=== PATIENT | female | born 1980 | race Caucasian/White ===

== ENCOUNTER → 2021-03-03 14:52 | Outpatient (BNVA) | payer OTHER, SELFPAY | PROVIDERS: Visit Provider Advanced Practice Midwife ==

== ENCOUNTER 2021-03-04 09:40 | Outpatient (REF) | payer OTHER, SELFPAY ==
[2021-03-04 11:06] LABS: MANUAL DIFF FLAG NO
[2021-03-04 11:18] LABS: Basophils Absolute Auto 0.2 X10*3/uL (0.0-0.2); Basophils Percent Auto 1.4 % (0-2); Eosinophils Percent Auto 18.9 % (0-4); Hematocrit 34.3 % (37-47); Hemoglobin 10.5 g/dl (12.0-16.0); Imm Gran Abs Auto 0.09 X10*3/uL (0.00-0.03); Imm Gran Pct Auto 0.9 % (0.0-0.4); Lymphocytes Absolute Auto 3.9 X10*3/uL (1.2-4.9); Lymphocytes Percent Auto 36.7 % (20-40); Mean Corpuscular HGB Conc 30.6 g/dl (31.0-35.0); Mean Corpuscular Hemoglobin 25.8 pg (27.0-33.0); Mean Corpuscular Volume 84.3 fL (80-98); Mean Platelet Volume 11.9 fL (9.4-12.3); Monocytes Absolute Auto 0.9 X10*3/uL (0.1-1.2); Monocytes Percent Auto 8.1 % (2-11); Neutrophils Absolute Auto 3.6 X10*3/uL (2.0-8.3); Platelet Count 276 X10*3/uL (160-400); Red Blood Count 4.07 X10*6/uL (4.20-5.50); Red Cell Distribution Width 16.6 % (11.0-16.0); White Blood Count 10.6 X10*3/uL (4.8-10.8)
[2021-03-04 11:51] LABS: TSH reflex Free T4 1.34 uIU/mL (0.32-4.0)
[2021-03-04 11:52] LABS: Alanine Aminotransferase 16 U/L (0-31); Albumin Level 4.5 g/dL (3.5-5.0); Alkaline Phosphatase 60 U/L (39-117); Anion Gap 15 (12-20); Aspartate Amino Transferase 24 U/L (5-31); Bilirubin Total < 0.2 mg/dL (0.0-1.0); Blood Urea Nitrogen 13 mg/dL (9-16); Calcium 9.3 mg/dL (8.4-10.2); Carbon Dioxide 27 mmol/L (22-29); Chloride 104 mmol/L (96-108); Cholesterol 209 mg/dL; Estimated Glomerular Filt Rate > 60; Glucose Fasting 93 mg/dL (60-99); HDL Cholesterol 59 mg/dL; LDL Cholesterol Calculated 99 mg/dl; Potassium 4.6 mmol/L (3.3-5.1); Sodium 141 mmol/L (135-145); Total Protein 7.7 g/dL (6.5-8.0); Triglycerides 258 mg/dL
== END 2021-03-04 09:41 | disposition home or self-care (01) ==
LOC: HO.WFDLDS 09:40
PROVIDERS: Visit Provider Family Medicine
DX: Z00.00 Encounter for general adult medical examination without abnormal findings (principal)
CPT/HCPCS: 36415; 80053; 80061; 84443; 85025

== ENCOUNTER → 2023-01-23 10:15 | Outpatient (BNVA) | payer OTHER, SELFPAY | PROVIDERS: PCP Family Medicine; Visit Provider Nurse Practitioner Psychiatric/Mental Health | DX: Z51.81 Encounter for therapeutic drug level monitoring (principal); F11.91 Opioid use, unspecified, in remission | CPT/HCPCS: 80305; 99202 ==

== ENCOUNTER → 2023-02-06 10:21 | Outpatient (BNVA) | payer OTHER, SELFPAY | PROVIDERS: PCP Family Medicine; Visit Provider Nurse Practitioner Psychiatric/Mental Health | DX: Z51.81 Encounter for therapeutic drug level monitoring (principal); F11.20 Opioid dependence, uncomplicated | CPT/HCPCS: 80305; 99212 ==

== ENCOUNTER → 2023-02-27 10:36 | Outpatient (BNVA) | payer OTHER, SELFPAY | PROVIDERS: PCP Family Medicine; Visit Provider Nurse Practitioner Psychiatric/Mental Health | DX: Z51.81 Encounter for therapeutic drug level monitoring (principal); F11.91 Opioid use, unspecified, in remission | CPT/HCPCS: 80305; 99212 ==

== ENCOUNTER → 2023-03-21 10:59 | Outpatient (BNVA) | payer OTHER, SELFPAY | PROVIDERS: PCP Family Medicine; Visit Provider Nurse Practitioner Psychiatric/Mental Health | DX: Z51.81 Encounter for therapeutic drug level monitoring (principal); F11.21 Opioid dependence, in remission | CPT/HCPCS: 80305; 99212 ==

== ENCOUNTER → 2023-04-18 11:00 | Outpatient (BNVA) | payer OTHER, SELFPAY | PROVIDERS: PCP Family Medicine; Visit Provider Nurse Practitioner Psychiatric/Mental Health | DX: Z51.81 Encounter for therapeutic drug level monitoring (principal); F11.20 Opioid dependence, uncomplicated | CPT/HCPCS: 80305; 99212 ==

== ENCOUNTER → 2023-05-16 11:20 | Outpatient (BNVA) | payer OTHER, SELFPAY | PROVIDERS: PCP Family Medicine; Visit Provider Nurse Practitioner Psychiatric/Mental Health | DX: F11.20 Opioid dependence, uncomplicated (principal) | CPT/HCPCS: 80305; 99212 ==

== ENCOUNTER 2023-07-10 11:19 | Outpatient (AMB) | payer OTHER, SELFPAY ==
--- NOTE | 2023-07-10 11:20 | MHC.OFFVIS ---
Intake Vital Signs 07/10/23 11:29 BP 132/88 Blood Pressure Location Lt radial Position Sitting Pulse 70 Pulse Source Pulse Oximeter Pulse Oximetry (%) 96 Oxygen Delivery Method Room Air Intake Visit Reasons: MAT Visit Intake Note: the patient presents for a mat visit Material Mover Required: No Allergies No Known Allergies Allergy (Verified 07/10/23 11:22) Do you need a note to return to daycare/school/sports/work: No HPI MAT Visit HPI Details Patient presents for follow up Currently prescribed Suboxone 8mg daily Got over the weekend Working PT at [facility] called patient to set up intake --encouraged patient to call them back [facility] Medical History Asthma Bronchitis HTN (hypertension) Obesity (BMI 30.0-34.9) Surgical History History of section History of hernia repair Family History Father No problems noted. Mother Asthma Brother No problems noted. Brother No problems noted. Sister No problems noted. Sister Breast cancer Daughter No problems noted. Social History Housing: Condominium Alcohol intake: never Patient Tobacco Use Status: Current everyday Tobacco user Cigarettes Per Day: 12 Years Smoked: 6 service: No Current occupational status: employed Current occupational exposures/hazards: No Cognitive needs: No Hearing needs: No Vision needs: No Review of Systems Const Reports as per HPI and Reports no additional complaints Physical Exam Vital Signs: Last Vital Signs Pulse 70 07/10/23 11:29 BP 132/88 07/10/23 11:29 Pulse Ox 96 07/10/23 11:29 Oxygen Delivery Method Room Air 07/10/23 11:29 Const General: cooperative and healthy appearing Psych Appearance: well kempt Mental Status: mental status grossly normal Speech and movement: Clear speech present Affect: normal affect Attitude: cooperative Thought process: Normal thought process present Thought content: Normal thought content present Insight: Good insight present (Psych) Judgement: Good judgement present (Psych) Results AMB 14 Panel Urine Drug Screen Urine Marijuana (THC) Positive Last Edit by Latasha Freeman CMA on 07/10/23 11:30 Urine Cocaine Negative Last Edit by Latasha Freeman CMA on 07/10/23 11:30 Urine Morphine Negative Last Edit by Latasha Freeman CMA on 07/10/23 11:30 Urine Methamphetamine Negative Last Edit by Latasha Freeman CMA on 07/10/23 11:30 Urine Amphetamine Negative Last Edit by Latasha Freeman CMA on 07/10/23 11:30 Urine Benzodiazepine Negative Last Edit by Latasha Freeman CMA on 07/10/23 11:30 Urine Barbiturates Negative Last Edit by Latasha Freeman CMA on 07/10/23 11:30 Urine Methadone Negative Last Edit by Latasha Freeman CMA on 07/10/23 11:30 Urine Buprenorphine Positive Last Edit by Latasha Freeman CMA on 07/10/23 11:30 Urine Tricyclic Antidepressant Negative Last Edit by Latasha Freeman CMA on 07/10/23 11:30 Urine MDMA Negative Last Edit by Latasha Freeman CMA on 07/10/23 11:30 Urine Oxycodone Negative Last Edit by Latasha Freeman CMA on 07/10/23 11:30 Urine Phencyclidine Negative Last Edit by Latasha Freeman CMA on 07/10/23 11:30 Urine Propoxyphene Negative Last Edit by Latasha Freeman CMA on 07/10/23 11:30 Results Reviewed Results Reviewed: Laboratory Last Values POC Urine Buprenorphine Positive 07/10/23 11:22 POC Urine Morphine Negative 07/10/23 11:22 POC Urine Oxycodone Negative 07/10/23 11:22 POC Urine Methadone Negative 07/10/23 11:22 POC Urine Propoxyphene Negative 07/10/23 11:22 POC Urine Barbiturates Negative 07/10/23 11:22 POC U Tricyclic Antidpr Negative 07/10/23 11:22 POC Urine PCP Negative 07/10/23 11:22 POC Ur Amphetamines Negative 07/10/23 11:22 POC Ur Methamphetamine Negative 07/10/23 11:22 POC Urine MDMA Negative 07/10/23 11:22 POC Ur Benzodiazepine Negative 07/10/23 11:22 POC Urine Cocaine Negative 07/10/23 11:22 POC Ur Marijuana (THC) Positive 07/10/23 11:22 Assessment & Plan Assessment & Plan (1) Opioid use disorder in remission: Code(s): F11.91 - Opioid use, unspecified, in remission Plan: continue suboxone at current dose follow up 6 weeks patient to follow up with [facility] Orders: Orders AMB 14 Panel Urine Drug Screen Today Z51.81 - Encounter for therapeutic drug level monitoring Medications: Refilled buprenorphine-naloxone 8-2 mg (Suboxone) 1 film sublingual DAILY 22 ea 1RF Coding Level of Care Code Est Pt Level 3 (14684) Diagnoses Opioid use disorder in remission F11.91
[2023-07-10 11:29] VITALS: BP 132/88; PULSE 70; O2SAT 96
== END 2023-07-10 11:47 | disposition home or self-care (01) ==
LOC: HO.HCC 11:19
PROVIDERS: PCP Family Medicine; Visit Provider Nurse Practitioner Psychiatric/Mental Health
DX: F11.91 Opioid use, unspecified, in remission (principal); Z51.81 Encounter for therapeutic drug level monitoring
CPT/HCPCS: 99213

== ENCOUNTER → 2023-07-10 11:19 | Outpatient (BNVA) | payer OTHER, SELFPAY | PROVIDERS: PCP Family Medicine; Visit Provider Nurse Practitioner Psychiatric/Mental Health | DX: F11.21 Opioid dependence, in remission (principal); F12.90 Cannabis use, unspecified, uncomplicated; Z51.81 Encounter for therapeutic drug level monitoring; Z79.899 Other long term (current) drug therapy; Z72.0 Tobacco use | CPT/HCPCS: 80305; 99212 ==

== ENCOUNTER 2023-07-13 09:50 | Outpatient (AMB) | payer OTHER, SELFPAY ==
--- NOTE | 2023-07-13 10:01 | A.OFFPC_ITS ---
Vital Signs 07/13/23 10:04 Weight 218 lb 4 oz BP 126/74 Blood Pressure Location Lt brachial Position Sitting Pulse 59 Pulse Source Pulse Oximeter Pulse Oximetry (%) 99 Oxygen Delivery Method Room Air Intake Visit Reasons: follow up anxiety/ medication refill Intake Note: Patient is here to follow up on anxiety, and inhaler refill. Allergies No Known Allergies Allergy (Verified 07/13/23 10:07) Tobacco use date assessed: 07/13/23 Dental Screening Dental Screen Date: 07/13/23 Did you have a dental visit in the last 12 months?: Yes Did you have a dental problem in the last 6 months where you did not have access to dental care?: No Was dental information given to patient?: Patient declined HPI follow up anxiety/ medication refill HPI Details 42 y/o female presents to f/u anxiety. She continues to see Glenys Nash for opioid use disorder in remission. She continues her Suboxone. She is on sertraline 100mg daily. Anxiety/depression scores significantly improved. She has a therapist in the works with [facility]. HPI Comments History of Present Illness Details Documentation assistance for Ashu Whitt MD, was provided by Richy Ya, Offset Duplicating Machine Operator on 07/13/2023 10:19 AM EST. I, Dr. Whitt, have read, observed, and verified documentation. [facility] Medical History (Reviewed 07/13/23 @ 10:09 by Anahi Steele [facility]) Asthma Bronchitis HTN (hypertension) Obesity (BMI 30.0-34.9) Surgical History History of section History of hernia repair Family History (Reviewed 07/13/23 @ 10:09 by Anahi Steele [facility]) Father No problems noted. Mother Asthma Brother No problems noted. Brother No problems noted. Sister No problems noted. Sister Breast cancer Daughter No problems noted. Social History (Reviewed 07/13/23 @ 10:09 by Anahi Steele [facility]) Housing: Condominium Alcohol intake: never Patient Tobacco Use Status: Current everyday Tobacco user Cigarettes Per Day: 12 Years Smoked: 6 e-Cigarette/Vaping Use: Never Used service: No Current occupational status: employed Current occupational exposures/hazards: No Cognitive needs: No Hearing needs: No Vision needs: No Questionnaire PHQ-9 Over the last 2 weeks, how often have you been bothered by any of the following problems? 1. Little interest or pleasure in doing things: not at all 2. Feeling down, depressed, or hopeless: not at all 3. Trouble falling or staying asleep, or sleeping too much: not at all 4. Feeling tired or having little energy: not at all 5. Poor appetite or overeating: not at all 6. Feeling bad about yourself - or that you are a failure or have let yourself or your family down: not at all 7. Trouble concentrating on things, such as reading the newspaper or watching television: not at all 8. Moving or speaking so slowly that other people could have noticed. Or the opposite - being so fidgety or restless that you have been moving around a lot more than usual: not at all 9. Thoughts that you would be better off or of hurting yourself in some way: not at all Total score: 0 Depression Screening Interpretation: Negative [id number] - PHQ-9 Billing: Yes Source: Developed by Drs. Rod Mayer, Alona Carmen, Mushtaq Pino and colleagues, with an educational jose from [employer]. Thrive Questionnaire Date Thrive assessed: 09/01/21 RONNIE-7 AMB Questionnaire RONNIE-7 Date RONNIE - 7 assessed: 07/13/23 Feeling nervous, anxious, or on edge: 0 = Not at all Not being able to stop or control worryin = Not at all Worrying too much about different things: 0 = Not at all Trouble relaxin = Not at all Being so restless that it is hard to sit still: 0 = Not at all Becoming easily annoyed or irritable: 0 = Not at all Feeling afraid as if something awful might happen: 0 = Not at all Total RONNIE-7 score (0-4 normal; 5-9 mild; 10-14 moderate; 15-21 severe): 0 Source: Developed by Drs. Rod Mayer, Alona Carmen, Mushtaq Pino and colleagues, with an educational jose from [employer]. RONNIE-7 Assessment Billing RONNIE-7 Assessment Tool: RONNIE-7 Assessment [id number] Review of Systems Const Denies chills, Denies fatigue, Denies fever(s), Denies headache(s) and Denies weakness ENT Denies dizziness and Denies headache(s) Card Denies chest pain, Denies lightheadedness, Denies dyspnea and Denies other (Palpitations) Resp Denies cough, Denies dyspnea, Denies wheezing and Denies other ( shortness of breath) Musc Denies numbness and Denies tingling Neuro Denies dizziness, Denies headache(s), Denies numbness, Denies tingling, Denies paresthesias and Denies weakness Psych Denies anxiety and Denies depression Endo Denies fatigue Aller/Immun Denies wheezing Physical exam (Primary Care) Vital Signs: Last Vital Signs Pulse 59 07/13/23 10:04 BP 126/74 07/13/23 10:04 Pulse Ox 99 07/13/23 10:04 Oxygen Delivery Method Room Air 07/13/23 10:04 Tobacco/Smoking Status: Tobacco use Status Tobacco use date assessed 07/13/23 07/13/23 10:14 Patient Tobacco Use Status Current everyday Tobacco 07/13/23 10:02 e-Cigarette/Vaping Use Never Used 07/13/23 10:14 PHQ-9: PHQ-9 Score PHQ-9: Total score 0 07/13/23 10:16 Depression Screening Interpretation: Negative Thrive Assessment: Date of Thrive Assessment Date Thrive assessed 09/01/21 07/13/23 10:02 Const General: no acute distress and well developed Nutritional Appearance: well nourished Orientation/consciousness: patient oriented x3 HENMT Head: Yes normocephalic and Yes atraumatic Eyes General: appearance normal, both eyes and all related structures Pupils: Equal, round and reactive pupils present EOM: EOMs intact bilaterally Resp Effort & Inspection: normal respiratory effort Auscultation: clear to auscultation bilaterally Cardio Rate: regular rate Rhythm: regular rhythm Heart sounds: S1 normal heart sound present, S2 normal heart sound present, no gallops, no murmurs and no rubs Neuro General: patient oriented x3 and gait normal Cranial nerves: Yes Equal, round and reactive pupils present Psych Affect: normal affect Assessment and Plan Assessment & Plan (1) Anxiety and depression: Code(s): F41.9 - Anxiety disorder, unspecified; F32.9 - Major depressive disorder, single episode, unspecified Plan: PHQ-9 and ronnie 7 showed no significant depression or anxiety at present on sertraline Patient says she feels well and stable on sertraline in 100 mg daily Continue current medication She has been working on getting a therapist but has not done so yet. I encouraged her to continue to pursue therapy (2) Asthma: Code(s): J45.909 - Unspecified asthma, uncomplicated Plan: She feels a little tight due to being out of her rescue inhaler. Lungs sound clear however with good air movement. Will send script for inhaler If not improving when she has the inhaler, she can call for another appointment Orders: Orders Comprehensive [facility]. Panel Fast Today Z00.00 - Encounter for general adult medical examination without abnormal findings Lipid Panel Today Z00.00 - Encounter for general adult medical examination without abnormal findings Microalbumin, Random (w Creat) Today I10 - Essential (primary) hypertension TSH reflex Free T4 Today Z00.00 - Encounter for general adult medical examination without abnormal findings UA and rflx microscopic Today Z00.00 - Encounter for general adult medical examination without abnormal findings Medications: New albuterol sulfate 90 mcg/actuation (Ventolin HFA) 2 puffs inhalation Q4-6H PRN 8.5 grams 3RF shortness of breath or wheezing 30 days Discontinued albuterol sulfate 90 mcg/actuation (ProAir HFA) Discontinued Reason: Insurance Denied 2 puffs inhalation Q4-6H PRN 8.5 grams 2RF shortness of breath or wheezing 30 days Coding Level of Care Code Est Pt Level 3 (18943) Diagnoses Anxiety and depression F41.9; F32.9 Asthma J45.909 Additional Codes RONNIE-7 Assessment Billing - RONNIE-7 Assessment Tool: RONNIE-7 Assessment [id number] ([id number])
[2023-07-13 10:04] VITALS: BP 126/74; PULSE 59; O2SAT 99
== END 2023-07-13 10:30 | disposition home or self-care (01) ==
PROVIDERS: PCP Family Medicine; Visit Provider Family Medicine
DX: F41.9 Anxiety disorder, unspecified (principal); F32.9 Major depressive disorder, single episode, unspecified; J45.909 Unspecified asthma, uncomplicated
CPT/HCPCS: 99213

== ENCOUNTER 2023-07-13 10:31 | Outpatient (REF) | payer OTHER, SELFPAY ==
[2023-07-13 14:32] LABS: Appearance Urine Clear; Color Urine Yellow; Glucose Urine UA Negative (Negative); Leukocyte Esterase Urine Negative (Negative); Nitrite Urine Negative (Negative); UMIC TRIGGER UA YES; Urine Blood Trace (Negative); Urine Ketones Negative (Negative); Urine Protein Negative (Neg-Trace)
[2023-07-13 14:43] LABS: Alanine Aminotransferase 16 U/L (0-31); Albumin Level 4.4 g/dL (3.5-5.0); Alkaline Phosphatase 51 U/L (39-117); Anion Gap 10 (12-20); Aspartate Amino Transferase 20 U/L (5-31); Bilirubin Total 0.2 mg/dL (0.0-1.0); Blood Urea Nitrogen 12 mg/dL (9-16); Calcium 9.5 mg/dL (8.4-10.2); Carbon Dioxide 25 mmol/L (22-29); Chloride 109 mmol/L (96-108); Cholesterol 210 mg/dL; Estimated Glomerular Filt Rate > 60; Glucose Fasting 97 mg/dL (60-99); HDL Cholesterol 43 mg/dL; LDL Cholesterol Calculated 122 mg/dl; Potassium 4.4 mmol/L (3.3-5.1); Sodium 140 mmol/L (135-145); Total Protein 7.6 g/dL (6.5-8.0); Triglycerides 226 mg/dL
[2023-07-13 14:58] LABS: TSH reflex Free T4 1.26 uIU/mL (0.32-4.0)
[2023-07-13 15:00] LABS: Creatinine Urine 30.09 mg/dL; Microalbumin Urine < 5.0 mg/L
[2023-07-13 15:17] LABS: Bacteria Urine None Seen (None Seen); Hyaline Casts Urine 0-2 /LPF (0-2); RBC Urine 0-2 /HPF (0-2); Squamous Epithelial Cell Urine 0-2 /HPF (0-2); WBC Urine 0-5 /HPF (0-5)
== END 2023-07-13 10:32 | disposition home or self-care (01) ==
LOC: HO.WFDLDS 10:31
PROVIDERS: Visit Provider Family Medicine
DX: Z00.00 Encounter for general adult medical examination without abnormal findings (principal); I10 Essential (primary) hypertension
CPT/HCPCS: 36415; 80053; 80061; 81001; 82043; 84443

== ENCOUNTER 2023-08-28 11:30 | Outpatient (AMB) | payer OTHER, SELFPAY ==
[2023-08-28 11:36] VITALS: BP 118/84; PULSE 74; O2SAT 98
--- NOTE | 2023-08-28 11:36 | A.OFFVIS_ITS ---
Intake Vital Signs 08/28/23 11:36 BP 118/84 Blood Pressure Location Lt radial Position Sitting Pulse 74 Pulse Source Pulse Oximeter Pulse Oximetry (%) 98 Oxygen Delivery Method Room Air Intake Visit Reasons: mat visit Intake Note: the patient presents for a mat visit [place] Alarm Inspector Required: No Allergies No Known Allergies Allergy (Verified 08/28/23 11:37) Do you need a note to return to daycare/school/sports/work: No HPI mat visit HPI Details Patient presents for follow up Doing well with recovery continues to work and spend time with family- no questions or concerns at this time [facility] Medical History Asthma Bronchitis HTN (hypertension) Obesity (BMI 30.0-34.9) Surgical History History of section History of hernia repair Family History Father No problems noted. Mother Asthma Brother No problems noted. Brother No problems noted. Sister No problems noted. Sister Breast cancer Daughter No problems noted. Social History Housing: Condominium Alcohol intake: never Patient Tobacco Use Status: Current everyday Tobacco user Cigarettes Per Day: 12 Years Smoked: 6 e-Cigarette/Vaping Use: Never Used service: No Current occupational status: employed Current occupational exposures/hazards: No Cognitive needs: No Hearing needs: No Vision needs: No Review of Systems Const Reports as per HPI and Reports no additional complaints Physical Exam Vital Signs: Last Vital Signs Pulse 74 08/28/23 11:36 BP 118/84 08/28/23 11:36 Pulse Ox 98 08/28/23 11:36 Oxygen Delivery Method Room Air 08/28/23 11:36 Const General: cooperative and healthy appearing Psych Appearance: well kempt Mental Status: mental status grossly normal Speech and movement: Clear speech present Affect: normal affect Attitude: cooperative Thought process: Normal thought process present Thought content: Normal thought content present Insight: Good insight present (Psych) Judgement: Good judgement present (Psych) Assessment & Plan Assessment & Plan (1) Opioid use disorder in remission: Code(s): F11.91 - Opioid use, unspecified, in remission Plan: * continue suboxone at current dose * follow up 6 weeks Medications: Refilled buprenorphine-naloxone 8-2 mg (Suboxone) 1 film sublingual DAILY 22 ea 1RF Coding Level of Care Code Est Pt Level 3 (80167) Diagnoses Opioid use disorder in remission F11.91
== END 2023-08-28 11:59 | disposition home or self-care (01) ==
LOC: HO.HCC 11:30
PROVIDERS: PCP Family Medicine; Visit Provider Nurse Practitioner Psychiatric/Mental Health
DX: F11.91 Opioid use, unspecified, in remission (principal)
CPT/HCPCS: 99213

== ENCOUNTER → 2023-08-28 11:30 | Outpatient (BNVA) | payer OTHER, SELFPAY | PROVIDERS: PCP Family Medicine; Visit Provider Nurse Practitioner Psychiatric/Mental Health | DX: F11.91 Opioid use, unspecified, in remission (principal) | CPT/HCPCS: 99212 ==

== ENCOUNTER 2023-10-03 11:11 | Outpatient (AMB) | payer OTHER, SELFPAY ==
[2023-10-03 11:15] VITALS: BP 118/64; PULSE 68; O2SAT 98
--- NOTE | 2023-10-03 11:15 | MHC.PC.OV ---
Vital Signs 10/03/23 11:15 Weight 226 lb 8 oz BP 118/64 Blood Pressure Location Lt brachial Position Sitting Pulse 68 Pulse Source Pulse Oximeter Pulse Oximetry (%) 98 Oxygen Delivery Method Room Air Intake Visit Reasons: Extended exam with f/u labs and health maintenance Intake Note: Patient is here for extended exam and follow up on labs and health maintenance, and would like to talk about SCRAP SEPARATOR referral, states she had tried to get through the office. Allergies No Known Allergies Allergy (Verified 10/03/23 11:20) Tobacco use date assessed: 10/03/23 HPI Extended exam with f/u labs and health maintenance HPI Details 43 y/o female presents for an extended exam with f/u labs and health maintenance. Labs were drawn 07/13/23. Reviewed labs with pt. Triglycerides 226. TC 210. LDL 122. HDL 43. Rest of her labs look okay. Pt reports irregular periods and states had missed her periods x2 months. [facility] Medical History (Updated 10/03/23 @ 12:10 by Richy Ya) Abnormal menstrual periods Obesity (BMI 30.0-34.9) HTN (hypertension) Asthma Bronchitis Surgical History (Reviewed 10/03/23 @ 11:21 by Anahi Steele [facility]) History of section History of hernia repair Family History (Reviewed 10/03/23 @ 11:21 by Anahi Steele [facility]) Father No problems noted. Mother Asthma Brother No problems noted. Brother No problems noted. Sister No problems noted. Sister Breast cancer Daughter No problems noted. Social History (Reviewed 10/03/23 @ 11:21 by Anahi Steele [facility]) Housing: Condominium Alcohol intake: never Patient Tobacco Use Status: Current everyday Tobacco user Cigarettes Per Day: 12 Years Smoked: 6 e-Cigarette/Vaping Use: Never Used service: No Current occupational status: employed Current occupational exposures/hazards: No Cognitive needs: No Hearing needs: No Vision needs: No Questionnaire Thrive Questionnaire Date Thrive assessed: 09/01/21 RONNIE-7 AMB Questionnaire RONNIE-7 Date RONNIE - 7 assessed: 07/13/23 Source: Developed by Drs. Rod Mayer, Alona Carmen, Mushtaq Pino and colleagues, with an educational jose from [employer]. Review of Systems Const Denies chills, Denies fatigue, Denies fever(s), Denies headache(s) and Denies weakness Eyes Denies change in vision ENT Denies dizziness, Denies headache(s), Denies hearing loss, Denies nasal congestion, Denies sinus pain, Denies sinus pressure and Denies sore throat Card Denies chest pain, Denies lightheadedness, Denies dyspnea and Denies other (palpitations) Resp Denies cough, Denies dyspnea and Denies wheezing GI Reports abdominal pain (Low abd. pelvic pain, L of midline), Denies melena, Denies hematochezia, Denies change in bowel habits, Denies dyspepsia and Denies nausea Denies hematuria and Denies dysuria Musc Denies abnormal gait, Denies myalgias, Denies arthralgias, Denies numbness and Denies tingling Skin/Breast Denies rash, Denies unusual bruising and Denies wounds Neuro Denies abnormal gait, Denies dizziness, Denies headache(s), Denies memory loss, Denies numbness, Denies Sensory deficit (Neuro), Denies tingling and Denies weakness Psych Denies anxiety, Denies depression and Denies memory loss Endo Denies cold intolerance, Denies fatigue, Denies heat intolerance, Denies polydipsia and Denies polyuria Hollis/Lymph Denies easy bleeding and Denies easy bruising Aller/Immun Denies wheezing Physical exam (Primary Care) Vital Signs: Last Vital Signs Pulse 68 10/03/23 11:15 BP 118/64 10/03/23 11:15 Pulse Ox 98 10/03/23 11:15 Oxygen Delivery Method Room Air 10/03/23 11:15 Tobacco/Smoking Status: Tobacco use Status Tobacco use date assessed 10/03/23 10/03/23 11:23 Patient Tobacco Use Status Current everyday Tobacco 10/03/23 11:15 e-Cigarette/Vaping Use Never Used 10/03/23 11:15 Thrive Assessment: Date of Thrive Assessment Date Thrive assessed 09/01/21 10/03/23 11:15 Const General: no acute distress, well developed, alert and awake Nutritional Appearance: well nourished Orientation/consciousness: patient oriented x3 HENMT Head: Yes normocephalic and Yes atraumatic Ears: hearing grossly normal bilaterally and TM's normal bilaterally General nose exam: Normal external nose present and Normal nares present Mouth: Normal oral and palatal mucosa present and moist mucous membranes Teeth and gingiva: dentition normal Throat: Yes posterior oropharynx normal Eyes General: appearance normal, both eyes and all related structures Pupils: Equal, round and reactive pupils present and Pupil accommodation reflex normal EOM: EOMs intact bilaterally Neck Neck: Yes normal visual inspection, Yes no lymphadenopathy and Yes trachea midline Thyroid: Thyroid normal Carotids: no bruits Lymphatic: no lymphadenopathy noted Chest Chest palpation & inspection: normal inspection of the chest Resp Other: Wheeze and coarse breath sounds Effort & Inspection: normal respiratory effort Auscultation: clear to auscultation bilaterally Cardio Rate: regular rate Rhythm: regular rhythm Heart sounds: S1 normal heart sound present, S2 normal heart sound present, no gallops, no murmurs and no rubs Bruits: no abdominal aortic bruits and no carotid bruits GI Palpation (GI): No Abdominal aortic bruit present, Soft to palpation, nontender, No hepatosplenomegaly present and No Rebound tenderness present Auscultation: normal bowel sounds General: Yes no CVA tenderness Back/Spine/Pelvis Back: no CVA tenderness Cervical Spine: cervical ROM normal and No Cervical spine tenderness Thoracic/Lumbar Spine: thoraco-lumbar ROM normal, No pain with thoraco-lumbar ROM, No thoracic spinal tenderness and No lumbar spinal tenderness Skin Lesions: no lesions Rashes: no rashes Trauma: no lacerations or abrasions Wounds: no wounds Nails: normal Neuro General: patient oriented x3 Cranial nerves: Yes Equal, round and reactive pupils present Cognition (Neuro): normal cognition Gait exam (Neuro): Normal gait present Motor exam (neuro): 5/5 motor strength present throughout Sensory Exam: No Sensory deficit (Neuro) Deep tendon reflexes (DTR's): Right patellar reflex intensity grade: 2+ and Left patellar reflex intensity grade: 2+ Extrem General: Yes normal to inspection and No edema Psych Appearance: grossly normal Affect: normal affect Attitude: cooperative Thought process: Normal thought process present Assessment and Plan Assessment & Plan (1) Hypertriglyceridemia: Code(s): E78.1 - Pure hyperglyceridemia Plan: Work?on?diet?and?weight?loss Decrease?sugars?in?diet (2) Irregular periods: Code(s): N92.6 - Irregular menstruation, unspecified Plan: Irregular?periods.??Patient?denies?any?chance?she?could?be?. Abdominal?pelvic?pain Check?ultrasound Referred?to?nurse gynecology (3) Asthma: Code(s): J45.909 - Unspecified asthma, uncomplicated Plan: Worsening?asthma?symptoms. Continue?albuterol?as?needed Adding?Flovent Advised?smoking?cessation (4) Smoker: Code(s): F17.200 - Nicotine dependence, unspecified, uncomplicated Plan: Continue?to?work?at?decreasing?smoking Smoking?less?than?half?a?pack?per?day Try?Nicorette?lozenges (5) Breast cancer screening by mammogram: Code(s): Z12.31 - Encounter for screening mammogram for malignant neoplasm of breast Plan: Check?mammogram (6) Abdominal pain: Code(s): R10.9 - Unspecified abdominal pain Plan: Check?ultrasound (7) Screening for cervical cancer: Code(s): Z12.4 - Encounter for screening for malignant neoplasm of cervix Plan: Referred?to?nurse gynecology (8) Adult general medical examination: Code(s): Z00.00 - Encounter for general adult medical examination without abnormal findings Plan: 43-year-old?female?presents?for?an?extended?exam Orders: Orders US pelvic complete Today N92.6 - Irregular menstruation, unspecified, R10.9 - Unspecified abdominal pain MM tomosynthesis screening BI Today Z12.31 - Encounter for screening mammogram for malignant neoplasm of breast Referrals SCRAP SEPARATOR Referral N92.6 - Irregular menstruation, unspecified, R10.9 - Unspecified abdominal pain, Z12.4 - Encounter for screening for malignant neoplasm of cervix Medications: New nicotine (polacrilex) (Nicorette) 2 mg buccal Q8H PRN 81 ea 2RF nicotine cravings 28 days fluticasone propionate 110 mcg/actuation (Flovent HFA) 1 puff inhalation Q12H 12 grams 3RF 30 days Refilled albuterol sulfate 90 mcg/actuation (Ventolin HFA) 2 puffs inhalation Q4-6H PRN 8.5 grams 3RF shortness of breath or wheezing 30 days Coding Level of Care Code Est Pt Level 4 (32873) Diagnoses Hypertriglyceridemia E78.1 Irregular periods N92.6 Asthma J45.909 Smoker F17.200 Breast cancer screening by mammogram Z12.31 Abdominal pain R10.9 Screening for cervical cancer Z12.4 Adult general medical examination Z00.00
== END 2023-10-03 12:16 | disposition home or self-care (01) ==
PROVIDERS: PCP Family Medicine; Visit Provider Family Medicine
DX: E78.1 Pure hyperglyceridemia (principal); N92.6 Irregular menstruation, unspecified; J45.909 Unspecified asthma, uncomplicated; F17.200 Nicotine dependence, unspecified, uncomplicated; Z12.31 Encounter for screening mammogram for malignant neoplasm of breast; R10.9 Unspecified abdominal pain; Z12.4 Encounter for screening for malignant neoplasm of cervix; Z00.00 Encounter for general adult medical examination without abnormal findings
CPT/HCPCS: 99214

== ENCOUNTER 2023-10-09 11:17 | Outpatient (AMB) | payer OTHER, SELFPAY ==
--- NOTE | 2023-10-09 11:21 | A.OFFVIS_ITS ---
Intake Vital Signs 10/09/23 11:23 BP 128/70 Blood Pressure Location Lt radial Position Sitting Pulse 88 Pulse Source Pulse Oximeter Pulse Oximetry (%) 98 Oxygen Delivery Method Room Air Intake Visit Reasons: mat visit Intake Note: the patient presents for a mat visit Alley Tender Required: No Allergies No Known Allergies Allergy (Verified 10/09/23 11:25) Do you need a note to return to daycare/school/sports/work: No HPI mat visit HPI Details Patient presents for follow up Recent physical with Peri U/S for abdominal pain Mammogram scheduled Doing well with current dose of suboxone Patient sharing some increasing sadness as the one year anniversary of her mothers is coming up in October. [facility] Medical History (Updated 10/03/23 @ 12:10 by Richy Ya) Abnormal menstrual periods Obesity (BMI 30.0-34.9) HTN (hypertension) Asthma Bronchitis Surgical History History of section History of hernia repair Family History Father No problems noted. Mother Asthma Brother No problems noted. Brother No problems noted. Sister No problems noted. Sister Breast cancer Daughter No problems noted. Social History Housing: Condominium Alcohol intake: never Patient Tobacco Use Status: Current everyday Tobacco user Cigarettes Per Day: 12 Years Smoked: 6 e-Cigarette/Vaping Use: Never Used service: No Current occupational status: employed Current occupational exposures/hazards: No Cognitive needs: No Hearing needs: No Vision needs: No Review of Systems Const Reports as per HPI Physical Exam Vital Signs: Last Vital Signs Pulse 88 10/09/23 11:23 BP 128/70 10/09/23 11:23 Pulse Ox 98 10/09/23 11:23 Oxygen Delivery Method Room Air 10/09/23 11:23 Const General: cooperative and healthy appearing Psych Appearance: well kempt Mental Status: mental status grossly normal Speech and movement: Clear speech present Affect: normal affect Attitude: cooperative Thought process: Normal thought process present Thought content: Normal thought content present Insight: Good insight present (Psych) Judgement: Good judgement present (Psych) Assessment & Plan Assessment & Plan (1) Opioid use disorder in remission: Code(s): F11.91 - Opioid use, unspecified, in remission Plan: * continue suboxone at current dose * followup 6 weeks * discussed grief resources Medications: Refilled buprenorphine-naloxone 8-2 mg (Suboxone) 1 film sublingual DAILY 22 ea 1RF Coding Level of Care Code Est Pt Level 3 (55448) Diagnoses Opioid use disorder in remission F11.91
[2023-10-09 11:23] VITALS: BP 128/70; PULSE 88; O2SAT 98
== END 2023-10-09 12:00 | disposition home or self-care (01) ==
PROVIDERS: PCP Family Medicine; Visit Provider Nurse Practitioner Psychiatric/Mental Health
DX: F11.91 Opioid use, unspecified, in remission (principal)
CPT/HCPCS: 99213

== ENCOUNTER → 2023-10-09 11:17 | Outpatient (BNVA) | payer OTHER, SELFPAY | PROVIDERS: PCP Family Medicine; Visit Provider Nurse Practitioner Psychiatric/Mental Health | DX: F11.91 Opioid use, unspecified, in remission (principal) | CPT/HCPCS: 99212 ==

== ENCOUNTER 2023-11-14 11:54 | Outpatient (AMB) | payer OTHER, SELFPAY ==
[2023-11-14 11:58] VITALS: BP 122/78; PULSE 65; O2SAT 100; BMI 35.8
--- NOTE | 2023-11-14 11:58 | A.OFFPC_ITS ---
Vital Signs 11/14/23 11:58 Height 5 ft 7 in Weight 228 lb 6 oz BMI 35.8 BP 122/78 Blood Pressure Location Lt brachial Position Sitting Pulse 65 Pulse Source Pulse Oximeter Pulse Oximetry (%) 100 Oxygen Delivery Method Room Air Intake Visit Reasons: f/u abd. pain and ultrasound Intake Note: Patient is here for follow up on abdominal pain and due for ultrasound on the . Allergies No Known Allergies Allergy (Verified 11/14/23 12:01) Tobacco use date assessed: 10/03/23 HPI f/u abd. pain and ultrasound HPI Details 43 y/o female presents to f/u abd. pain/ pelvic pain and ultrasound. Ultrasound ordered. She reports ultrasound scheduled. Urinalysis/urine dip today was fine. [facility] Medical History Abnormal menstrual periods Obesity (BMI 30.0-34.9) HTN (hypertension) Asthma Bronchitis Surgical History History of section History of hernia repair Family History Father No problems noted. Mother Asthma Brother No problems noted. Brother No problems noted. Sister No problems noted. Sister Breast cancer Daughter No problems noted. Social History Housing: Condominium Alcohol intake: never Patient Tobacco Use Status: Current everyday Tobacco user Cigarettes Per Day: 12 Years Smoked: 6 e-Cigarette/Vaping Use: Never Used service: No Current occupational status: employed Current occupational exposures/hazards: No Cognitive needs: No Hearing needs: No Vision needs: No Questionnaire Thrive Questionnaire Date Thrive assessed: 09/01/21 RONNIE-7 AMB Questionnaire RONNIE-7 Date RONNIE - 7 assessed: 07/13/23 Source: Developed by Drs. Rod Mayer, Alona Carmen, Mushtaq Pino and colleagues, with an educational jose from [employer]. Review of Systems Const Denies chills, Denies fatigue, Denies fever(s), Denies headache(s) and Denies weakness ENT Denies dizziness and Denies headache(s) Card Denies dyspnea Resp Denies cough, Denies dyspnea, Denies wheezing and Denies other (shortness of breath) GI Reports abdominal pain Musc Denies numbness and Denies tingling Neuro Denies dizziness, Denies headache(s), Denies numbness, Denies tingling and Denies weakness Psych Denies anxiety and Denies depression Endo Denies fatigue Aller/Immun Denies wheezing Physical exam (Primary Care) Vital Signs: Last Vital Signs Pulse 65 11/14/23 11:58 BP 122/78 11/14/23 11:58 Pulse Ox 100 11/14/23 11:58 Oxygen Delivery Method Room Air 11/14/23 11:58 BMI result Body Mass Index 35.8 Tobacco/Smoking Status: Tobacco use Status Tobacco use date assessed 10/03/23 11/14/23 12:04 Patient Tobacco Use Status Current everyday Tobacco 11/14/23 12:04 e-Cigarette/Vaping Use Never Used 11/14/23 12:04 Thrive Assessment: Date of Thrive Assessment Date Thrive assessed 09/01/21 11/14/23 12:04 Const General: well developed; No acute distress Nutritional Appearance: well nourished Orientation/consciousness: patient oriented x3 [facility] Head: Yes normocephalic and Yes atraumatic Eyes General: appearance normal, both eyes and all related structures Pupils: Equal, round and reactive pupils present EOM: EOMs intact bilaterally Resp Effort & Inspection: normal respiratory effort Neuro General: patient oriented x3 and gait normal Cranial nerves: Yes Equal, round and reactive pupils present Psych Affect: normal affect Results AMB Urinalysis, Automated UA Leukoctes 0 Carey/uL Last Edit by Anahi Steele CMA on 11/14/23 12:59 UA Nitrite Negative Last Edit by Anahi Steele CMA on 11/14/23 12:59 UA Urobilinogen 3.5 mg/dL Last Edit by Anahi Steele CMA on 11/14/23 12:59 UA Protein 0 mg/dL Last Edit by Anahi Steele CMA on 11/14/23 12:59 UA pH 6.5 Last Edit by Anahi Steele CMA on 11/14/23 12:59 UA Blood 0 David/uL Last Edit by Anahi Steele CMA on 11/14/23 12:59 UA Specific [place] 1.020 Last Edit by Anahi Steele CMA on 11/14/23 12:5 9 UA Ketone Negative Last Edit by Anahi Steele CMA on 11/14/23 12:59 UA Bilirubin 0 mg/dL Last Edit by Anahi Steele CMA on 11/14/23 12:59 UA Glucose 0 mg/dL Last Edit by Anahi Steele CMA on 11/14/23 12:59 AMB Test Urine AMB Test Urine Negative Last Edit by Anahi Setele CMA on 11/14 13:00 Assessment and Plan Assessment & Plan (1) Abdominal pain: Code(s): R10.9 - Unspecified abdominal pain Plan: Ongoing?abdominal?pain?which?patient?localizes?to?left?lower?quadrant. She?now?notices?that?this?is?somewhat?associated?with?food?intake. She?will?get?labs?drawn?including?a?CBC She?will?trial?bowel?rest?w ith?clear?liquid?diet?and?then?advanced?diet?as?tolerated Will?give?her?a?script?for?MiraLax Call?or?return?to?office?if?worsening Will?refer?to?Gastroenterology (2) Pelvic pain: Code(s): R10.2 - Pelvic and perineal pain Plan: As?above,?this?seems?to?be?more?related?to?a?gastrointestinal?issue She?does?have?irregular?menses?and?will?be?referred?to?rewinder (3) Irregular periods: Code(s): N92.6 - Irregular menstruation, unspecified Plan: Has?been?referred?to?rewinder HCG?was?negative She?does?have?an?ultrasound?pending Will?ask?the?office?to?check?on?the?status?of?this?referral Orders: Orders AMB Urinalysis Automated Today R10.9 - Unspecified abdominal pain Complete Blood Count Auto Diff Today R10.9 - Unspecified abdominal pain, Z00.00 - Encounter for general adult medical examination without abnormal findings Comprehensive Met. Panel Today R10.9 - Unspecified abdominal pain AMB HCG Urine Test Today R10.9 - Unspecified abdominal pain Urine Dipstick Today R10.9 - Unspecified abdominal pain Referrals Gastroenterology Referral R10.9 - Unspecified abdominal pain Medications: New polyethylene glycol 3350 (Miralax) 17 grams PO DAILY 14 ea 0RF 14 days Coding Level of Care Code Est Pt Level 3 (81819) Diagnoses Abdominal pain R10.9 Pelvic pain R10.2 Irregular periods N92.6
== END 2023-11-14 13:19 | disposition home or self-care (01) ==
PROVIDERS: PCP Family Medicine; Visit Provider Family Medicine
DX: R10.9 Unspecified abdominal pain (principal); R10.2 Pelvic and perineal pain; N92.6 Irregular menstruation, unspecified
CPT/HCPCS: 81003; 81025; 99213

== ENCOUNTER 2023-12-13 13:33 | Outpatient (REF) | payer OTHER, SELFPAY ==
[2023-12-14 04:55] LABS: CT PCR NOT DETECTED (Not Detect.); NG PCR NOT DETECTED (Not Detect.)
[2023-12-14 09:56] LABS: BV Int Neg Control Negative (Negative); BV Int Pos Control Positive (Positive)
[2023-12-16 04:49] LABS: HPV mRNA E6/E7 rflx Not Detected (Not Detected)
== END 2023-12-13 13:34 | disposition home or self-care (01) ==
LOC: HO.LNP 13:33
PROVIDERS: PCP Family Medicine; Visit Provider Advanced Practice Midwife
DX: R10.2 Pelvic and perineal pain (principal); N92.6 Irregular menstruation, unspecified; Z12.4 Encounter for screening for malignant neoplasm of cervix; Z79.899 Other long term (current) drug therapy
CPT/HCPCS: 0353U; 87480; 87510; 87624; 87660; 88142; 99202

== ENCOUNTER 2023-12-13 13:33 | Outpatient (AMB) | payer OTHER, SELFPAY ==
[2023-12-13 13:40] VITALS: BP 124/76; BMI 35.9
--- NOTE | 2023-12-13 13:40 | MHC.OFFVIS ---
Intake Vital Signs 12/13/23 13:40 Height 5 ft 7 in Weight 229 lb BMI 35.9 BP 124/76 Intake Visit Reasons: New patient Irregular menses Intake Note: having pelvic pain lower abd pain and has been missing menses for a few months Magnetic Resonance Technologist Required: No Information Interpreted: non-clinical & clinical Lineman Apprentice: Lineman Apprentice Present (Aidyn) Allergies No Known Allergies Allergy (Verified 12/13/23 13:43) Medication List - Last Reconciled 12/13/23 by Wanda Kessler CNM albuterol sulfate 90 mcg/actuation (Ventolin HFA) 2 puffs inhalation Q4-6H PRN 30 days buprenorphine-naloxone 8-2 mg (Suboxone) 1 film sublingual DAILY fluticasone propionate 110 mcg/actuation (Flovent HFA) 1 puff inhalation Q12H 30 days metoprolol succinate ER 25 mg PO DAILY nicotine (polacrilex) (Nicorette) 2 mg buccal Q8H PRN 28 days pantoprazole 40 mg PO DAILY polyethylene glycol 3350 (Miralax) 17 grams PO DAILY 14 days pregabalin 300 mg PO BID 90 days sertraline 100 mg PO DAILY 90 days Is last menstrual period known: Yes Last menstrual period: 10/12/23 Post menopausal: No HPI New patient Irregular menses HPI Details Patient is a new patient here and thought that she was scheduled to come here for pelvic ultrasound. She said her primary care provider ordered 1 for her and she has been getting text reminders and thought for sure this was the ultrasound visit. She has a follow-up visit with her primary care to review the ultrasound on the so it seems that that was the plan in some way in the past. Patient states she is not currently sexually active so not need of control her last time was several months ago. She had expressed interest in a ParaGard IUD of couple of years ago and Mai had spoken to her about considering a Mirena because of her history. She thinks she had a period in March and then not again for several months until september and has not had 1 since. She thinks her last Pap smear was several years ago. She has had abdominal pains that move around in her abdomen she has issues with constipation and has started on laxatives. She has an appointment with Gastroenterology coming up she had fasting blood work done via her primary but thinks she is probably due to get more. She has had weight fluctuations and on balance she thinks she gained weight. [facility] Medical History Abnormal menstrual periods Obesity (BMI 30.0-34.9) HTN (hypertension) Asthma Bronchitis Surgical History History of section History of hernia repair Family History Father No problems noted. Mother Asthma Brother No problems noted. Brother No problems noted. Sister No problems noted. Sister Breast cancer Daughter No problems noted. Social History (Updated 12/13/23 @ 13:45 by EMMA Corbin) Housing: Condominium Alcohol intake: never Patient Tobacco Use Status: Current everyday Tobacco user Tobacco use type: Cigarette Cigarettes Per Day: 7 Years Smoked: 6 e-Cigarette/Vaping Use: Never Used service: No Current occupational status: employed Current occupational exposures/hazards: No Cognitive needs: No Hearing needs: No Vision needs: No Female Reproductive History Menstrual Age of Menarche: 15 Duration of menses: 6-7 days Date of last menstrual period: 10/12/23 control method: none Total pregnancies: 2 Full term: 1 Ab induced: 1 Physical Exam Vital Signs: Last Vital Signs BP 124/76 12/13/23 13:40 BMI result Body Mass Index 35.9 Other: Exam somewhat limited by central obesity. Moderate tone with Kegel cervix appears parous pink smooth friable with Pap uterus difficult to feel completely but no tenderness noted and no adnexal tenderness moderate tone with Kegel. Clear discharge. External Female Exam: normal external appearance Speculum Exam - Vagina: normal appearance of the vagina and normal vaginal discharge Speculum Exam - Cervix: normal appearance of the cervix Bimanual exam- vagina & uterus: normal bimanual exam, uterine size normal, consistency normal, uterine mobility normal, uterine shape normal and non-tender Bimanual Exam- Adnexa, other: normal adnexae, no masses and No adnexal tenderness Assessment & Plan Assessment & Plan (1) Pelvic pain: Comment: Patient also has appointment with Gastroenterology, Code(s): R10.2 - Pelvic and perineal pain (2) Screening for cervical cancer: Comment: Pap smear done 12/13/2023. Code(s): Z12.4 - Encounter for screening for malignant neoplasm of cervix (3) Breast cancer screening by mammogram: Comment: Patient states she needs to reschedule it Code(s): Z12.31 - Encounter for screening mammogram for malignant neoplasm of breast (4) Irregular periods: Comment: Patient has ultrasound that was ordered by her primary care provider and a visit to review it next week. Unable to find date of appointment in schedule patient thought it was today and at this office. Patient being assisted in finding out when for her ultrasound. I will have a visit with her after her primary care provider reviewed her ultrasound with her. Code(s): N92.6 - Irregular menstruation, unspecified (5) Smoker: Code(s): F17.200 - Nicotine dependence, unspecified, uncomplicated Plan Primary has ordered a pelvic ultrasound for her and has also scheduled a follow-up appointment it is unclear when the ultrasound was to be the patient thought it was today and here which it is not. Patient to be assisted in figuring out where she is to go for her ultrasound and when she has a follow-up visit with her PCC next week on the according to the computer. We can see her after that visit to review whether not there are other gynecological issues to follow-up in which there probably will be I did address the topic of a possible endometrial biopsy in the future and possible use of a Mirena for endometrial protection but it was not gone into in detail. this had been mentioned to her in the past as well. Orders: Orders CT NG by PCR Today R10.2 - Pelvic and perineal pain Pap Smear Today Z12.4 - Encounter for screening for malignant neoplasm of cervix Bacterial Vaginosis Panel Today R10.2 - Pelvic and perineal pain Coding Level of Care Code New Pt Level 3 (27585) Diagnoses Pelvic pain R10.2 Screening for cervical cancer Z12.4 Breast cancer screening by mammogram Z12.31 Irregular periods N92.6 Smoker F17.200
== END 2023-12-13 14:26 | disposition home or self-care (01) ==
LOC: HO.HWSM 13:33
PROVIDERS: PCP Family Medicine; Visit Provider Advanced Practice Midwife
DX: R10.2 Pelvic and perineal pain (principal); Z12.4 Encounter for screening for malignant neoplasm of cervix; Z12.31 Encounter for screening mammogram for malignant neoplasm of breast; N92.6 Irregular menstruation, unspecified; F17.200 Nicotine dependence, unspecified, uncomplicated
CPT/HCPCS: 99203

== ENCOUNTER 2024-01-11 11:36 | Outpatient (REF) | payer OTHER, SELFPAY ==
--- NOTE | ~2024-01-11 | US_ITS ---
EXAMINATION: US PELVIS CLINICAL INFORMATION: Pelvic and perineal pain; the last menstrual period was on 11/29/2023. COMPARISON: None available. TECHNIQUE: Ultrasound of the pelvis is performed using both transabdominal and transvaginal transducers along with Doppler. Transvaginal imaging is performed due to inadequate visualization transabdominally. FINDINGS: Uterus: The uterus is anteverted and anteflexed. The uterus measures 8.4 x 2.5 x 6.3 cm. Nabothian cysts are seen within the cervix. The double wall endometrial thickness is 1.3 mm. The uterus is smooth in contour and has normal myometrial echogenicity. No visible fibroid. Adnexa: Both ovaries are visualized. There is normal color flow to the adnexa. There is no ovarian torsion. There is no pelvic ascites or fluid collection. Right ovary measures 4.0 x 2.9 x 3.7 cm, volume 22.5 mL. The right ovary contains a 3.1 x 2.0 x 2.4 cm benign, simple cyst, for which no imaging follow-up is recommended. Left ovary measures 2.0 x 1.3 x 2.1 cm, volume 2.9 mL. US/US pelvic and transvaginal IMPRESSION: Nabothian cysts are seen within the cervix. The examination is otherwise unremarkable.
== END 2024-01-11 11:37 | disposition home or self-care (01) ==
LOC: HO.US 11:36
PROVIDERS: PCP Family Medicine; Visit Provider Family Medicine
DX: R10.2 Pelvic and perineal pain (principal); N92.6 Irregular menstruation, unspecified
CPT/HCPCS: 76830; 76856

== ENCOUNTER 2024-01-16 11:33 | Outpatient (AMB) | payer OTHER, SELFPAY ==
--- NOTE | 2024-01-16 11:35 | MHC.AM.SUB ---
Intake Vital Signs 01/16/24 11:41 Height 5 ft 6.4 in Weight 222 lb BMI 35.4 BP 128/62 Blood Pressure Location Lt radial Position Sitting Pulse 74 Pulse Source Pulse Oximeter Pulse Oximetry (%) 95 Oxygen Delivery Method Room Air Intake Visit Reasons: MAT Visit Intake Note: the patient presents for a mat visit Compounding And Finishing Supervisor Required: No Allergies No Known Allergies Allergy (Verified 01/16/24 11:43) Do you need a note to return to daycare/school/sports/work: No HPI MAT Visit HPI Details Patient presents for MAT visit She reports she is stable in her recovery No cravings, or withdrawal sx, Taking 8mg suboxone daily and tolerating it well [facility] Medical History Abnormal menstrual periods Obesity (BMI 30.0-34.9) HTN (hypertension) Asthma Bronchitis Surgical History History of section History of hernia repair Family History Father No problems noted. Mother Asthma Brother No problems noted. Brother No problems noted. Sister No problems noted. Sister Breast cancer Daughter No problems noted. Social History (Updated 12/13/23 @ 13:45 by EMMA Corbin) Housing: Condominium Alcohol intake: never Patient Tobacco Use Status: Current everyday Tobacco user Cigarettes Per Day: 12 Years Smoked: 6 e-Cigarette/Vaping Use: Never Used service: No Current occupational status: employed Current occupational exposures/hazards: No Cognitive needs: No Hearing needs: No Vision needs: No Female Reproductive History Menstrual Age of Menarche: 15 Review of Systems Const Reports as per HPI Physical Exam Vital Signs: Last Vital Signs Pulse 74 01/16/24 11:41 BP 128/62 01/16/24 11:41 Pulse Ox 95 01/16/24 11:41 Oxygen Delivery Method Room Air 01/16/24 11:41 BMI result Body Mass Index 35.4 Const General: cooperative and healthy appearing Resp Effort & Inspection: normal respiratory effort Psych Appearance: grossly normal Mental Status: mental status grossly normal Speech and movement: Normal speech and movement present Affect: normal affect Attitude: cooperative Assessment & Plan Assessment & Plan (1) Opioid use disorder in remission: Code(s): F11.91 - Opioid use, unspecified, in remission Plan: -Cont suboxone at same dose, no refill needed yet at this time. Pt to call [facility] when she needs refill -Follow up 8 weeks Coding Level of Care Code Est Pt Level 3 (87755) Diagnoses Opioid use disorder in remission F11.91
[2024-01-16 11:41] VITALS: BP 128/62; PULSE 74; O2SAT 95; BMI 35.4
== END 2024-01-16 11:56 | disposition home or self-care (01) ==
PROVIDERS: PCP Family Medicine; Visit Provider Nurse Practitioner Family
DX: F11.91 Opioid use, unspecified, in remission (principal)
CPT/HCPCS: 99213

== ENCOUNTER → 2024-01-16 11:33 | Outpatient (BNVA) | payer OTHER, SELFPAY | PROVIDERS: PCP Family Medicine; Visit Provider Nurse Practitioner Family | DX: F11.21 Opioid dependence, in remission (principal) | CPT/HCPCS: 99212 ==

== ENCOUNTER 2024-03-12 11:41 | Outpatient (REF) | payer OTHER, SELFPAY ==
[2024-03-12 16:55] LABS: TSH reflex Free T4 1.05 uIU/mL (0.32-4.0)
== END 2024-03-12 11:42 | disposition home or self-care (01) ==
LOC: HO.LAB 11:41
PROVIDERS: Absent Provider Family Medicine; PCP Family Medicine; Visit Provider Nurse Practitioner Family
DX: Z13.29 Encounter for screening for other suspected endocrine disorder (principal); F11.91 Opioid use, unspecified, in remission
CPT/HCPCS: 36415; 84443; 99212

== ENCOUNTER 2024-03-12 11:41 | Outpatient (AMB) | payer OTHER, SELFPAY ==
--- NOTE | 2024-03-12 11:40 | MHC.AM.SUB ---
Intake Vital Signs 03/12/24 11:45 BP 132/96 H Blood Pressure Location Lt brachial Position Sitting Pulse 69 Pulse Source Pulse Oximeter Pulse Oximetry (%) 97 Oxygen Delivery Method Room Air Intake Visit Reasons: mat visit Allergies No Known Allergies Allergy (Verified 03/12/24 11:40) HPI mat visit HPI Details Patient presents for MAT visit Reports feeling overwhelmed, states her daughter needs to go for scans to rule out scoliosis, and needs hernia repairs States she has been feeling fatigued lately, reports good sleep at night, denies any medication changes or changes to her sleeping pattern Doing well otherwise, has no concerns for recovery Tolerating 8mg suboxone daily PFSH Medical History Abnormal menstrual periods Obesity (BMI 30.0-34.9) HTN (hypertension) Asthma Bronchitis Surgical History History of section History of hernia repair Family History Father No problems noted. Mother Asthma Brother No problems noted. Brother No problems noted. Sister No problems noted. Sister Breast cancer Daughter No problems noted. Social History (Updated 12/13/23 @ 13:45 by EMMA Corbin) Housing: Condominium Alcohol intake: never Patient Tobacco Use Status: Current everyday Tobacco user Cigarettes Per Day: 12 Years Smoked: 6 e-Cigarette/Vaping Use: Never Used service: No Current occupational status: employed Current occupational exposures/hazards: No Cognitive needs: No Hearing needs: No Vision needs: No Female Reproductive History Menstrual Age of Menarche: 15 Review of Systems Const Reports as per HPI, Denies difficulty sleeping, Reports fatigue and Reports lethargy Endo Reports fatigue Physical Exam Vital Signs: Last Vital Signs Pulse 69 03/12/24 11:45 BP 132/96 H 03/12/24 11:45 Pulse Ox 97 03/12/24 11:45 Oxygen Delivery Method Room Air 03/12/24 11:45 Const General: cooperative and no acute distress Resp Effort & Inspection: normal respiratory effort Psych Appearance: grossly normal Mental Status: mental status grossly normal Speech and movement: Normal speech and movement present Affect: normal affect Attitude: cooperative Assessment & Plan Assessment & Plan (1) Screening for thyroid disorder: Code(s): Z13. - Encounter for screening for other suspected endocrine disorder Plan: -Check TSH for root cause fatigue -Encouraged pt to follow up with her PCP, she reports she has an appt 03/25 (2) Opioid use disorder in remission: Code(s): F1. - Opioid use, unspecified, in remission Plan: -Mass pat reviewed -Script refill of suboxone sent to pharmacy -Follow up 8 weeks Orders: Orders TSH reflex Free T4 Today - Encounter for screening for other suspected endocrine disorder Medications: Refilled buprenorphine-naloxone 8-2 mg (Suboxone) 1 film sublingual DAILY 30 ea 1RF Coding Level of Care Code Est Pt Level 3 (13608) Diagnoses Screening for thyroid disorder Opioid use disorder in remission .
[2024-03-12 11:45] VITALS: BP 132/96; PULSE 69; O2SAT 97
== END 2024-03-12 11:55 | disposition home or self-care (01) ==
PROVIDERS: PCP Family Medicine; Visit Provider Nurse Practitioner Family
DX: F11.91 Opioid use, unspecified, in remission (principal); Z13.29 Encounter for screening for other suspected endocrine disorder
CPT/HCPCS: 99213

== ENCOUNTER → 2024-05-07 11:48 | Outpatient (BNVA) | payer OTHER, SELFPAY | PROVIDERS: PCP Family Medicine; Visit Provider Nurse Practitioner Family | DX: Z13.29 Encounter for screening for other suspected endocrine disorder (principal) ==

== ENCOUNTER 2024-05-14 10:45 | Outpatient (AMB) | payer OTHER, SELFPAY ==
--- NOTE | 2024-05-14 10:56 | A.OFFPC_ITS ---
Vital Signs 05/14/24 10:59 Height 5 ft 6.4 in Weight 214 lb 4 oz BMI 34.2 BP 137/90 H Blood Pressure Location Lt brachial Position Sitting Pulse 60 Pulse Source Pulse Oximeter Pulse Oximetry (%) 96 Oxygen Delivery Method Room Air Intake Visit Reasons: ultrasound f/u Intake Note: Patient is here for follow up on ultrasound. She also has a cough today for about 3 weeks, with light headed and mucous. Allergies No Known Allergies Allergy (Verified 05/14/24 11:02) Tobacco use date assessed: 05/14/24 Dental Screening Dental Screen Date: 05/14/24 Did you have a dental visit in the last 12 months?: No Did you have a dental problem in the last 6 months where you did not have access to dental care?: No Was dental information given to patient?: Patient has dentist HPI ultrasound f/u HPI Details Pt presents to f/u pelvic ultrasound for pelvic/preineal pain. Per ultrasound note 01/11/24 nabothian cysts seen within cermix. Examination was otherwise unremarkable. Pt has complaints of a cough x3 weeks. [facility] Medical History Abnormal menstrual periods Obesity (BMI 30.0-34.9) HTN (hypertension) Asthma Bronchitis Surgical History History of section History of hernia repair Family History Father No problems noted. Mother Asthma Brother No problems noted. Brother No problems noted. Sister No problems noted. Sister Breast cancer Daughter No problems noted. Social History Housing: Condominium Alcohol intake: never Patient Tobacco Use Status: Current everyday Tobacco user Cigarettes Per Day: 12 Years Smoked: 6 Packs per year/per ci.60 e-Cigarette/Vaping Use: Never Used service: No Current occupational status: employed Current occupational exposures/hazards: No Cognitive needs: No Hearing needs: No Vision needs: No Female Reproductive History Menstrual Age of Menarche: 15 Questionnaire Thrive Questionnaire Date Thrive assessed: 09/01/21 RONNIE-7 AMB Questionnaire RONNIE-7 Date RONNIE - 7 assessed: 07/13/23 Source: Developed by Drs. Rod Mayer, Alona Carmen, Mushtaq Pino and colleagues, with an educational jose from [employer]. Review of Systems Const Denies chills, Denies fatigue, Denies fever(s), Denies headache(s) and Denies weakness ENT Denies dizziness and Denies headache(s) Card Denies dyspnea Resp Reports cough, Denies dyspnea and Denies wheezing Musc Denies numbness and Denies tingling Neuro Denies dizziness, Denies headache(s), Denies numbness, Denies tingling and Denies weakness Psych Denies anxiety and Denies depression Endo Denies fatigue Aller/Immun Denies wheezing Physical exam (Primary Care) Vital Signs: Last Vital Signs Pulse 60 05/14/24 10:59 BP 137/90 H 05/14/24 10:59 Pulse Ox 96 05/14/24 10:59 Oxygen Delivery Method Room Air 05/14/24 10:59 BMI result Body Mass Index 34.2 Tobacco/Smoking Status: Tobacco use Status Tobacco use date assessed 05/14/24 05/14/24 11:03 Patient Tobacco Use Status Current everyday Tobacco 05/14/24 10:58 Tobacco use type 12/26/23 09:57 e-Cigarette/Vaping Use Never Used 05/14/24 10:58 Thrive Assessment: Date of Thrive Assessment Date Thrive assessed 09/01/21 05/14/24 10:58 Const General: well developed; No acute distress Nutritional Appearance: well nourished Orientation/consciousness: [facility]: Yes normocephalic and Yes atraumatic Eyes General: appearance normal, both eyes and all related structures Pupils: Equal, round and reactive pupils present EOM: EOMs intact bilaterally Resp Effort & Inspection: normal respiratory effort Neuro General: patient oriented x3 and gait normal Cranial nerves: Yes Equal, round and reactive pupils present Psych Affect: normal affect Assessment and Plan Assessment & Plan (1) Pelvic pain: Code(s): R10.2 - Pelvic and perineal pain Plan: Patient?had?seen?her?advertising sales associate?and?was?subsequently?treated?for?her?pH?being?off- possible?bacterial?vaginosis. She?says?pain?has?stopped?since?treatment Ultrasound?had?shown?some?nabothian?cysts?which?are?unlikely?to?be?the?cause?of? her?pain?and?anyway?it?is?resolved. (2) Cough: Code(s): R05.9 - Cough, unspecified Plan: Cough?x3?weeks Likely?underlying?allergies?and?now?bronchitis Advised?her?to?use?her?inhaled?medications Will?send?script?for?a?Z-Helder?and?prednisone No?indication?for?checking?viral?illnesses.??Patient ?says?she?already?checked?for?COVID?which?was?negative?and?symptoms?have?been?on going?for?the?past?3?weeks. She?notes?that?her?partner?has?been?sick?for?about?this?long?as?well. ?Nevertheless,?she?is? outside?the?window?of?any?treatment?for?viral?illnesses?and?should?quarantine?if ?her?partners?tests?come?back?positive. Medications: New azithromycin (Zithromax Z-Helder) take 500 mg today (day 1), then 250 mg for 4 days (days 2-5) PO 5 days 6 tabs 0RF prednisone 40 mg (2 x 20 mg) PO DAILY 5 days 10 tabs 0RF Coding Level of Care Code Est Pt Level 3 (13769) Diagnoses Pelvic pain R10.2 Cough R05.9
[2024-05-14 10:59] VITALS: BP 137/90; PULSE 60; O2SAT 96; BMI 34.2
== END 2024-05-14 11:42 | disposition home or self-care (01) ==
PROVIDERS: PCP Family Medicine; Visit Provider Family Medicine
DX: R10.2 Pelvic and perineal pain (principal); R05.9 Cough, unspecified
CPT/HCPCS: 99213

== ENCOUNTER 2024-06-25 11:21 | Outpatient (AMB) | payer OTHER, SELFPAY ==
[2024-06-25 11:30] VITALS: BP 154/110; PULSE 59; O2SAT 98
--- NOTE | 2024-06-25 11:30 | MHC.AM.SUB ---
Vital Signs 06/25/24 11:30 BP 154/110 H Blood Pressure Location Rt brachial Position Sitting Pulse 59 Pulse Source Pulse Oximeter Pulse Oximetry (%) 98 Oxygen Delivery Method Room Air Comment Ongoing H/A reported. PCP called and nurse Marilyn requested pt come in. Intake Visit Reasons: MAT Visit Allergies No Known Allergies Allergy (Verified 06/25/24 13:25) HPI HPI MAT Visit: Details: Patient presents for follow up Currently prescribed suboxone 8mg daily BP high in office X2, patient reporting headaches PCP office offered to see her today as a walk in, patient declined and stated she would call them to schedule an appt [facility] Medical History (Updated 06/25/24 @ 13:39 by FORD Bahena-) Abnormal menstrual periods Obesity (BMI 30.0-34.9) HTN (hypertension) Asthma Bronchitis Surgical History History of section History of hernia repair Family History Father No problems noted. Mother Asthma Brother No problems noted. Brother No problems noted. Sister No problems noted. Sister Breast cancer Daughter No problems noted. Social History Housing: Condominium Alcohol intake: never Patient Tobacco Use Status: Current everyday Tobacco user Cigarettes Per Day: 12 Years Smoked: 6 e-Cigarette/Vaping Use: Never Used service: No Current occupational status: employed Current occupational exposures/hazards: No Cognitive needs: No Hearing needs: No Vision needs: No Female Reproductive History Menstrual Age of Menarche: 15 Review of Systems Const Reports as per HPI Physical Exam Vital Signs: Last Vital Signs Pulse 59 06/25/24 11:30 BP 154/110 H 06/25/24 11:30 Pulse Ox 98 06/25/24 11:30 Oxygen Delivery Method Room Air 06/25/24 11:30 Const General: cooperative, anxious and well groomed Nutritional Appearance: overweight Orientation/consciousness: patient oriented x3 Limitations: no limitations Neuro General: patient oriented x3 Assessment & Plan Assessment & Plan (1) Opioid use disorder in remission: Code(s): F11.91 - Opioid use, unspecified, in remission Category: Medical Plan: continue suboxone at current dose encouraged to be seen by provider for BP and associated symptoms follow up 2 months rx due in 2 weeks
== END 2024-06-25 12:01 | disposition home or self-care (01) ==
PROVIDERS: PCP Family Medicine; Visit Provider Nurse Practitioner Psychiatric/Mental Health
DX: F11.91 Opioid use, unspecified, in remission (principal)
CPT/HCPCS: 99214

== ENCOUNTER → 2024-06-25 11:21 | Outpatient (BNVA) | payer OTHER, SELFPAY | PROVIDERS: PCP Family Medicine; Visit Provider Nurse Practitioner Psychiatric/Mental Health | DX: F11.20 Opioid dependence, uncomplicated (principal); Z51.81 Encounter for therapeutic drug level monitoring | CPT/HCPCS: 99212 ==

== ENCOUNTER 2024-06-25 12:45 | Outpatient (AMB) | payer OTHER, SELFPAY ==
--- NOTE | 2024-06-25 12:56 | AM.OFFWIN_ITS ---
Intake Vital Signs 06/25/24 13:02 06/25/24 13:07 Height 5 ft 6.4 in Weight 218 lb 8 oz BMI 34.8 BP 142/96 H 137/92 H Blood Pressure Location Rt brachial Rt brachial Position Sitting Sitting Respiration 16 Pulse 59 Temp 98.4 F Temp Source Oral Pulse Oximetry (%) 99 Oxygen Delivery Method Room Air Intake Visit Reasons: High BP and shortness of breath Intake Note: High blood pressure and shortness of breath. Went to [facility] today and her blood pressure was 155/110. Patient was advised to go to the ER, but pt states they are too busy. Has headaches, seeing spots, and short of breath. Takes an over the counter suppliement that contains caffeine, but she can not recall the name. Patient Tobacco Use Status: Current everyday Tobacco user Is last menstrual period known: No Allergies No Known Allergies Allergy (Verified 06/25/24 13:25) Medication List - Last Reconciled 06/25/24 by Yessica López, [facility] albuterol sulfate 90 mcg/actuation (Ventolin HFA) 2 puffs inhalation Q4-6H PRN 30 days beclomethasone dipropionate 40 mcg/actuation (Qvar RediHaler) 1 inh inhalation BID 30 days budesonide-formoterol 160-4.5 mcg/actuation (Symbicort) 1 puff inhalation BID 30 days buprenorphine-naloxone 8-2 mg (Suboxone) 1 film sublingual DAILY metoprolol succinate ER 25 mg PO DAILY nicotine (polacrilex) (Nicorette) 2 mg buccal Q8H PRN 28 days pantoprazole 40 mg PO DAILY pregabalin 300 mg PO BID 90 days sertraline 100 mg PO DAILY 90 days Do you need a note to return to daycare/school/sports/work: No HPI HPI Comments History of Present Illness Details Pleasant 43-year-old female here today with chief complaints of uncontrolled hypertension. She was seen by a specialist this morning and was noted to be hypertensive at the office. She was advised to go to the emergency room, however her primary care is here therefore she came here for an evaluation. She is currently maintained on metoprolol succinate ER 25 mg p.o. d aily. She reports that she is taking this daily as directed, has not missed any doses. When asked about hypertension management in the past, she states that she relocated here from [place] recently. She was maintained on hydrochlorothiazide along with propranolol while she was there. She did not tolerate either of these. Thinks the hydrochlorothiazide that she was on was a combination medication but she can not recall what it was mixed with. Be that as it may, she also endorses starting a new supplement hydroxycut. Her blood pressure became elevated after this. She continues to take this daily. She also endorses a headache, spots in the visual richter, however this has been ongoing for months. She denies any chest pain. She has not had a recent eye exam. She also endorses feeling hot and flushed all of the time along with generalized fatigue, however these are more generalized complaints and unrelated to the reason she is being seen in the walk-in today. Exam Awake alert oriented, no acute distress Regular rate and rhythm Lung sounds clear to auscultation bilat Grossly normal neuro exam Plan Stop hydroxycut immediately. Increase metoprolol from 25 mg to 50 mg daily. A new prescription was not sent in. Advised to take 2 tablets. Monitor blood pressure daily. Monitor pulse daily. Bring this log with you to your next follow up appointment to review with her primary care provider. When he follow up with your primary care provider, you can also request a referral to the coping machine assembler for routine eye exam given her visual complaints. You can also discuss your fatigue and flushing as well. Educated to seek care in the emergency room she should develop chest pain or syncope or worsening of symptoms. This note is constructed using voice recognition software. While every effort has been made to ensure accuracy in feed house supervisor, still errors may have been included Sometimes, these errors may affect the content or meaning of the given sentence . Total time spent caring for the patient today was 30 minutes. This includes time spent before the visit reviewing the chart, time spent during the visit, and time spent after the visit on documentation [facility] Medical History (Updated 06/25/24 @ 13:39 by [facility] Abnormal menstrual periods Obesity (BMI 30.0-34.9) HTN (hypertension) Asthma Bronchitis Surgical History History of section History of hernia repair Family History Father No problems noted. Mother Asthma Brother No problems noted. Brother No problems noted. Sister No problems noted. Sister Breast cancer Daughter No problems noted. Social History Housing: Condominium Alcohol intake: never Patient Tobacco Use Status: Current everyday Tobacco user Cigarettes Per Day: 12 Years Smoked: 6 e-Cigarette/Vaping Use: Never Used service: No Current occupational status: employed Current occupational exposures/hazards: No Cognitive needs: No Hearing needs: No Vision needs: No Female Reproductive History Menstrual Age of Menarche: 15 Physical Exam Vital Signs: Last Vital Signs Temp 98.4 F 06/25/24 13:02 Pulse 59 06/25/24 13:02 Resp 16 06/25/24 13:02 BP 137/92 H 06/25/24 13:07 Pulse Ox 99 06/25/24 13:02 Oxygen Delivery Method Room Air 06/25/24 13:02 BMI result Body Mass Index 34.8 Assessment & Plan Assessment & Plan (1) HTN (hypertension): Code(s): I10 - Essential (primary) hypertension Qualifiers: Hypertension type: primary hypertension Qualified Code(s): I10 - Essent ial (primary) hypertension Plan: . Medications: Refilled nicotine (polacrilex) (Nicorette) 2 mg buccal Q8H 28 days PRN 81 ea 2RF nicotine cravings Patient Instructions: Increase your Metoprolol Succinate ER from 25mg daily to 50mg Monitor BP at home, along with pulse, bring log with you to appt If develop chest pain or syncope please go to the ED Otherwise fu with PCP next week for BP re eval and f/u of other concerns Coding Level of Care Code Est Pt Level 4 (45539) Diagnoses Primary hypertension I10 Hypertension type: primary hypertension
[2024-06-25 13:02] VITALS: BP 142/96; PULSE 59; RESP 16; TEMP 36.9; O2SAT 99; BMI 34.8
[2024-06-25 13:07] VITALS: BP 137/92
== END 2024-06-25 13:37 | disposition home or self-care (01) ==
PROVIDERS: PCP Family Medicine; Visit Provider Nurse Practitioner Family
DX: I10 Essential (primary) hypertension (principal)
CPT/HCPCS: 99214

== ENCOUNTER 2024-07-11 13:52 | Outpatient (AMB) | payer OTHER, SELFPAY ==
--- NOTE | 2024-07-11 14:00 | A.OFFPC_ITS ---
Vital Signs 07/11/24 14:02 07/11/24 14:13 Height 5 ft 6.4 in Weight 215 lb 8 oz BMI 34.4 BP 134/96 H 138/92 H Blood Pressure Location Lt brachial Lt brachial Position Sitting Sitting Respiration 16 Pulse 55 Pulse Source Pulse Oximeter Pulse Oximetry (%) 98 Oxygen Delivery Method Room Air Intake Visit Reasons: f/u HTN Intake Note: Follow up htn Allergies No Known Allergies Allergy (Verified 07/11/24 14:00) Medication List - Last Reconciled 07/11/24 by Aniyah Nath PA-C albuterol sulfate 90 mcg/actuation (Ventolin HFA) 2 puffs inhalation Q4-6H PRN 30 days beclomethasone dipropionate 40 mcg/actuation (Qvar RediHaler) 1 inh inhalation BID 30 days budesonide-formoterol 160-4.5 mcg/actuation (Symbicort) 1 puff inhalation BID 30 days buprenorphine-naloxone 8-2 mg (Suboxone) 1 film sublingual DAILY nicotine (polacrilex) (Nicorette) 2 mg buccal Q8H PRN 28 days pantoprazole 40 mg PO DAILY pregabalin 300 mg PO BID 90 days sertraline 100 mg PO DAILY 90 days Tobacco use date assessed: 05/14/24 Dental Screening Dental Screen Date: 05/14/24 HPI f/u HTN HPI Details Patient is a 43-year-old female with a significant past medical history of anxiety, depression, alcohol abuse, ADHD, substance abuse in remission, long-term Suboxone use, hypertension, hyperlipidemia presenting today for a follow-up. She is here to have her blood pressure checked as at her last visit she had her metoprolol dosing increased. CV: She states since she had the metoprolol increased to 50 mg she has felt much more tired. Her blood pressure today in the office is 134/96 and 138/92. She is asymptomatic with this. At home her blood pressures have fluctuated between 120-140 systolic and a diastolic of 70-90. Her pulse is typically around 60. She denies any dizziness, chest pain or shortness of breath. She felt better on the lower dose of the metoprolol. Psych: She is currently managed with Sertraline 100 mg daily. She denies any SI/ HI. She states that her daughter is starting school again in a few weeks and she used to be on Strattera to help her with her ADHD and focus on like to go back on this. She states that also helped with her anxiety. She tolerated this well in the past. Derm: She also reports today a hypopigmented rash on her back. It flared up this summer. It is not itchy, no pain, no change in hygiene products. No recent travel. Her daughter does have similar symptoms and was recently diagnosed with a fungal infection. Requests a referral today to Gynecology. She believes she is perimenopausal and would like to follow with someone for this. [facility] Medical History (Updated 07/12/24 @ 09:04 by Aniyah Nath PA-C) Abnormal menstrual periods Obesity (BMI 30.0-34.9) HTN (hypertension) Asthma Bronchitis Surgical History History of section History of hernia repair Family History Father No problems noted. Mother Asthma Brother No problems noted. Brother No problems noted. Sister No problems noted. Sister Breast cancer Daughter No problems noted. Social History Housing: Condominium Alcohol intake: never Patient Tobacco Use Status: Current everyday Tobacco user Cigarettes Per Day: 12 Years Smoked: 6 e-Cigarette/Vaping Use: Never Used service: No Current occupational status: employed Current occupational exposures/hazards: No Cognitive needs: No Hearing needs: No Vision needs: No Female Reproductive History Menstrual Age of Menarche: 15 Questionnaire Thrive Questionnaire Date Thrive assessed: 09/01/21 RONNIE-7 AMB Questionnaire RONNIE-7 Date RONNIE - 7 assessed: 07/13/23 Source: Developed by Drs. Rod Mayer, Alona Carmen, Mushtaq Pino and colleagues, with an educational jose from [employer]. Physical exam (Primary Care) Vital Signs: Last Vital Signs Pulse 55 07/11/24 14:02 Resp 16 07/11/24 14:02 BP 138/92 H 07/11/24 14:13 Pulse Ox 98 07/11/24 14:02 Oxygen Delivery Method Room Air 07/11/24 14:02 BMI result Body Mass Index 34.4 BMI Assessment/Plan discussion: High BMI High, discussed plan: lifestyle, weight reduction, dietary and physical activity Tobacco/Smoking Status: Tobacco use Status Tobacco use date assessed 05/14/24 07/11/24 14:02 Patient Tobacco Use Status Current everyday Tobacco 07/11/24 14:02 Tobacco use type 12/26/23 09:57 e-Cigarette/Vaping Use Never Used 07/11/24 14:02 Are you ready to quit: No Tobacco cessation counseling provided: Yes Items discussed: Nicotine replacement Relapse Prevention: discussed the importance of a supportive environment, discussed negative mood or depression after quitting and discussed dietary, exercise and/or lifestyle changes CPT code: Less than 3 minutes Thrive Assessment: Date of Thrive Assessment Date Thrive assessed 09/01/21 07/11/24 14:02 Const Orientation/consciousness: patient oriented x3 HENMT Ears: hearing grossly normal bilaterally Neck Thyroid: Thyroid normal Lymphatic: no lymphadenopathy noted Resp Auscultation: clear to auscultation bilaterally Cardio Rate: regular rate Rhythm: regular rhythm Heart sounds: S1 normal heart sound present and S2 normal heart sound present Skin Other: There is a flat, hyperpigmented, circular, scattered rash noted throughout the upper to mid back. Neuro General: patient oriented x3, gait normal and no focal motor deficits Office Procedures EKG Details: EKG sinus bradycardia at a rate of 53 beats per minute. Nonspecific ST-T abnormalities noted. No prior [id number], Complete Assessment and Plan Assessment & Plan (1) HTN (hypertension): Code(s): I10 - Essential (primary) hypertension Qualifiers: Hypertension type: primary hypertension Qualified Code(s): I10 - Essential (primary) hypertension Plan: Reduce dose of metoprolol to 25 mg. Start lisinopril 10 mg. Discussed risks, benefits and adverse effects of this medication including a cough, electrolyte abnormality consider. Return for follow-up in 2 weeks to be reassessed. Sooner if needed. She will get labs some prior to appointment. (2) Anxiety and depression: Code(s): F41.9 - Anxiety disorder, unspecified; F32.9 - Major depressive disorder, single episode, unspecified Plan: Stable with sertraline. Continue current regimen (3) Mild anemia: Code(s): D64.9 - Anemia, unspecified Plan: labs ordered today. Will follow up pending test results (4) Hypertriglyceridemia: Code(s): E78.1 - Pure hyperglyceridemia Plan: lipids ordered (5) Tinea versicolor: Code(s): B36.0 - Pityriasis versicolor Plan: rash appears consistent with tinea versicolor. Ketoconazole shampoo ordered. She will have a short-term follow-up. Will refer to Derm if no improvement or if anything changes. (6) Concentration deficit: Code(s): R41.840 - Attention and concentration deficit Plan: Start Strattera. Discussed risks and benefits and adverse effects of this medication. Plan EKG was done today as she reports not having 1 in many years and has had Suboxone dose adjustments, is on SSRIs [place]. EKG today in office is sinus bradycardia rate 53 beats per minute with nonspecific STT wave abnormalities. No prior study to compare. EKG interpreted by myself and Dr. Yap Orders: Orders Comprehensive [place]. Panel Fast 07/11/24 D64.9 - Anemia, unspecified, E78.1 - Pure hyperglyceridemia, F32.9 - Major depressive disorder, single episode, unspecified, F41.9 - Anxiety disorder, unspecified, I10 - Essential (primary) hypertension IRON PROFILE 07/11/24 D64.9 - Anemia, unspecified, E78.1 - Pure hyperglyceridemia, F32.9 - Major depressive disorder, single episode, unspecified, F41.9 - Anxiety disorder, unspecified, I10 - Essential (primary) hypertension Vitamin B12 and Folate 07/11/24 D64.9 - Anemia, unspecified, E78.1 - Pure hyperglyceridemia, F32.9 - Major depressive disorder, single episode, unspecified, F41.9 - Anxiety disorder, unspecified, I10 - Essential (primary) hypertension Complete Blood Count Auto Diff 07/11/24 D64.9 - Anemia, unspecified, E78.1 - Pure hyperglyceridemia, F32.9 - Major depressive disorder, single episode, unspecified, F41.9 - Anxiety disorder, unspecified, I10 - Essential (primary) hypertension Lipid Panel 07/11/24 D64.9 - Anemia, unspecified, E78.1 - Pure hyperglyceridemia, F32.9 - Major depressive disorder, single episode, unspecified, F41.9 - Anxiety disorder, unspecified, I10 - Essential (primary) hypertension TSH reflex Free T4 07/11/24 D64.9 - Anemia, unspecified, E78.1 - Pure hyperglyceridemia, F32.9 - Major depressive disorder, single episode, unspecified, F41.9 - Anxiety disorder, unspecified, I10 - Essential (primary) hypertension AMB EKG-In Office 07/11/24 D64.9 - Anemia, unspecified, E78.1 - Pure hyperglyceridemia, F32.9 - Major depressive disorder, single episode, unspecifi ed, F41.9 - Anxiety disorder, unspecified, I10 - Essential (primary) hypertension Medications: New atomoxetine (Strattera) 40 mg PO QAM 90 caps 0RF ketoconazole 2% 1 appl topical 3XW 30 days 120 mL 0RF lisinopril 10 mg PO DAILY 90 tabs 0RF metoprolol succinate ER 25 mg PO DAILY 90 tabs 0RF Discontinued metoprolol succinate ER Discontinued Reason: Doctor's Order 25 mg PO BID Coding Level of Care Code Est Pt Level 4 (82521) Complex EM visit Add On G2211 Diagnoses Primary hypertension I10 Hypertension type: primary hypertension Anxiety and depression F41.9; F32.9 Mild anemia D64.9 Hypertriglyceridemia E78.1 Tinea versicolor B36.0 Concentration deficit R41.840 CPT Codes EKG - CPT: [id number], Complete ([id number])
[2024-07-11 14:02] VITALS: BP 134/96; PULSE 55; RESP 16; O2SAT 98; BMI 34.4
[2024-07-11 14:13] VITALS: BP 138/92
== END 2024-07-11 15:31 | disposition home or self-care (01) ==
PROVIDERS: PCP Family Medicine; Visit Provider Physician Assistant
DX: I10 Essential (primary) hypertension (principal); F41.9 Anxiety disorder, unspecified; F32.9 Major depressive disorder, single episode, unspecified; F17.210 Nicotine dependence, cigarettes, uncomplicated; D64.9 Anemia, unspecified; E78.1 Pure hyperglyceridemia; B36.0 Pityriasis versicolor; R41.840 Attention and concentration deficit
CPT/HCPCS: 93000; 99214; G2211

== ENCOUNTER 2024-07-23 12:42 | Outpatient (REF) | payer OTHER, SELFPAY ==
[2024-07-23 14:37] LABS: MANUAL DIFF FLAG NO
[2024-07-23 14:47] LABS: Basophils Absolute Auto 0.1 X10*3/uL (0.0-0.2); Basophils Percent Auto 1.7 % (0-2); Eosinophils Absolute Auto 1.3 X10*3/uL (0.0-0.4); Eosinophils Percent Auto 15.4 % (0-4); Hematocrit 33.7 % (37.0-47.0); Hemoglobin 10.3 g/dl (12.0-16.0); Imm Gran Abs Auto 0.03 X10*3/uL (0.00-0.03); Imm Gran Pct Auto 0.4 % (0.0-0.4); Lymphocytes Absolute Auto 2.8 X10*3/uL (1.2-4.9); Lymphocytes Percent Auto 32.9 % (20-40); Mean Corpuscular HGB Conc 30.6 g/dl (31.0-35.0); Mean Corpuscular Volume 78.4 fL (80.0-98.0); Mean Platelet Volume 11.7 fL (9.4-12.3); Monocytes Absolute Auto 0.6 X10*3/uL (0.1-1.2); Monocytes Percent Auto 7.6 % (2-11); Neutrophils Absolute Auto 3.6 x10*3/uL (2.0-8.3); Platelet Count 205 X10*3/uL (160-400); White Blood Count 8.5 X10*3/uL (4.8-10.8)
[2024-07-23 14:58] LABS: Alanine Aminotransferase 15 U/L (0-31); Albumin Level 4.4 g/dL (3.5-5.0); Alkaline Phosphatase 55 U/L (39-117); Anion Gap 12 (12-20); Aspartate Amino Transferase 16 U/L (5-31); Bilirubin Total 0.2 mg/dL (0.0-1.0); Blood Urea Nitrogen 12 mg/dL (9-16); Calcium 9.6 mg/dL (8.4-10.2); Carbon Dioxide 25 mmol/L (22-29); Chloride 105 mmol/L (96-108); Cholesterol 265 mg/dL (<200); Estimated Glomerular Filt Rate > 60; Glucose Fasting 92 mg/dL (60-99); Glucose Random 92 mg/dL (60-115); HDL Cholesterol 50 mg/dL (>40); Iron 24 mcg/dL (30-160); LDL Cholesterol Calculated 169 mg/dL (<100); Percent Iron Saturation 5 % (15-50); Potassium 4.2 mmol/L (3.3-5.1); Sodium 138 mmol/L (135-145); Total Iron Binding Capacity 445 mcg/dL (228-428); Total Protein 7.5 g/dL (6.5-8.0); Triglycerides 231 mg/dL (<150); Unsaturated Iron Binding 421 ug/dL
[2024-07-23 21:32] LABS: TSH reflex Free T4 0.82 uIU/mL (0.32-4.0)
== END 2024-07-23 12:43 | disposition home or self-care (01) ==
LOC: HO.WFDLDS 12:42
PROVIDERS: Referring Provider Physician Assistant; Visit Provider Family Medicine
DX: Z00.00 Encounter for general adult medical examination without abnormal findings (principal); R10.9 Unspecified abdominal pain; I10 Essential (primary) hypertension; E78.1 Pure hyperglyceridemia; D64.9 Anemia, unspecified; F41.9 Anxiety disorder, unspecified; F32.9 Major depressive disorder, single episode, unspecified
CPT/HCPCS: 36415; 80053; 80061; 83540; 84443; 85025

== ENCOUNTER → 2024-08-16 11:17 | Outpatient (AMB) | payer OTHER, SELFPAY ==
--- NOTE | 2024-08-16 11:12 | A.OFFPC_ITS ---
Intake Visit Reasons: Blood Pressure Medicine Review Intake Note: follow up for b/p meds Allergies No Known Allergies Allergy (Verified 08/16/24 11:13) Tobacco use date assessed: 05/14/24 Dental Screening Dental Screen Date: 05/14/24 HPI Blood Pressure Medicine Review HPI Details 44 y/o female [facility] Labs drawn 07/23/24. Reviewed labs with pt. Anemia - Hgb 10.3, Hct 33.7, MCV 78.4, MCH 24. Iron level 24. Triglycerides 231. TC 265. LDL 169. HDL 50. Pt notes blood pressure at home have been fine. HPI Comments History of Present Illness Details Documentation assistance for Ashu Whitt MD, was provided by Richy Ya, Recenterer on 08/16/2024 at 11:30 AM EST. I, Dr. Whitt, have read, observed, and verified documentation. [facility] Medical History (Updated 08/16/24 @ 11:34 by Richy Ya) Abnormal menstrual periods Obesity (BMI 30.0-34.9) HTN (hypertension) Asthma Bronchitis Surgical History History of section History of hernia repair Family History Father No problems noted. Mother Asthma Brother No problems noted. Brother No problems noted. Sister No problems noted. Sister Breast cancer Daughter No problems noted. Social History Housing: Condominium Alcohol intake: never Patient Tobacco Use Status: Current everyday Tobacco user Cigarettes Per Day: 12 Years Smoked: 6 e-Cigarette/Vaping Use: Never Used service: No Current occupational status: employed Current occupational exposures/hazards: No Cognitive needs: No Hearing needs: No Vision needs: No Female Reproductive History Menstrual Age of Menarche: 15 Questionnaire Thrive Questionnaire Date Thrive assessed: 09/01/21 AUDIT C Alcohol Use Questionnaire (AUDIT-C) 3. How often do you have six or more drinks on one occasion?: Never Total Score: 0 RONNIE-7 AMB Questionnaire RONNIE-7 Date RONNIE - 7 assessed: 07/13/23 Source: Developed by Alona Wood B.W. Kermit, Mushtaq Pino and colleagues, with an educational jose from [employer]. Physical exam (Primary Care) Tobacco/Smoking Status: Tobacco use Status Tobacco use date assessed 05/14/24 08/16/24 11:15 Patient Tobacco Use Status Current everyday Tobacco 08/16/24 11:15 Tobacco use type 12/26/23 09:57 e-Cigarette/Vaping Use Never Used 08/16/24 11:15 Thrive Assessment: Date of Thrive Assessment Date Thrive assessed 09/01/21 08/16/24 11:15 Telehealth Telehealth Telehealth Platform: Telephone Location of provider rendering services: practice address Location of patient: address on file Patient Identification confirmed using: Name, : Yes Telehealth method: voice only Patient verbally consented to treatment: Yes Patient verbally consented to billing insurance company: Yes Patient informed of any privacy concerns related to visit: Yes Minutes spent on Phone/Video with Pt.: 9 Assessment and Plan Assessment & Plan (1) HTN (hypertension): Code(s): I10 - Essential (primary) hypertension Qualifiers: Hypertension type: primary hypertension Qualified Code(s): I10 - Essential (primary) hypertension Plan: Patient?says?that?her?blood?pressure?is?controlled?on?metoprolol?and?lisinopril She?checks?her?blood?pressures?at?home Encouraged?her?to?call?or?return?to?office?if?not?well?controlled We?will?follow-up?at?her?next?visit Continue?current?medication (2) Anemia: Code(s): D64.9 - Anemia, unspecified Plan: Microcytic?anemia?with?iron?deficiency Will?send?script?for?iron Hydrate?well?and?can?also?use?prune?juice?to?prevent?constipation. She?will?get?her?blood?redrawn?prior?to?her?next?visit (3) Hyperlipidemia: Code(s): E78.5 - Hyperlipidemia, unspecified Plan: LDL?cholesterol?is?too?high Encouraged?a?diet?low?in?saturated?fats?and?cholesterol?and?encouraged ?weight?loss. She?will?get?her?blood?drawn?prior?to?next?visit?and?we?will?follow- up?on?this.??If?still?too?high,?we?discussed?today,?that?we?will?discuss?medicat ion. Orders: Orders Complete Blood Count Auto Diff Today D64.9 - Anemia, unspecified, Z00.00 - Encounter for general adult medical examination without abnormal findings IRON PROFILE Today D64.9 - Anemia, unspecified Comprehensive [place]. Panel Fast Today E78.5 - Hyperlipidemia, unspecified, Z00.00 - Encounter for general adult medical examination without abnormal findings Lipid Panel Today E78.5 - Hyperlipidemia, unspecified, Z00.00 - Encounter for general adult medical examination without abnormal findings Medications: New ferrous sulfate 325 mg PO DAILY 90 days 90 tabs 0RF Coding Level of Care Code Tele Est Pt Level 2 (16082) Diagnoses Primary hypertension I10 Hypertension type: primary hypertension Anemia D64.9 Hyperlipidemia E78.5
== END ==
LOC: HO.HMCFM 11:17
PROVIDERS: PCP Family Medicine; Visit Provider Family Medicine
DX: I10 Essential (primary) hypertension (principal); D64.9 Anemia, unspecified; E78.5 Hyperlipidemia, unspecified

== ENCOUNTER → 2024-08-16 11:17 | Outpatient (BNVA) | payer OTHER, SELFPAY | PROVIDERS: PCP Family Medicine; Visit Provider Family Medicine ==

== ENCOUNTER 2024-09-02 13:50 | Outpatient (AMB) | payer OTHER, SELFPAY ==
--- NOTE | 2024-09-05 15:10 | A.OFFVISCC_ITS ---
Intake Visit Reasons: MAT Visit Allergies No Known Allergies Allergy (Verified 08/16/24 11:13) [facility] MAT Visit: Details: Patient presents for follow up Currently prescribed Suboxone 8mg daily No issues related to medication BP improved since last visit--saw PCP and medications have been adjusted no concerns at this time [facility] Medical History (Updated 08/16/24 @ 11:34 by Richy Ya) Abnormal menstrual periods Obesity (BMI 30.0-34.9) HTN (hypertension) Asthma Bronchitis Surgical History History of section History of hernia repair Family History Father No problems noted. Mother Asthma Brother No problems noted. Brother No problems noted. Sister No problems noted. Sister Breast cancer Daughter No problems noted. Social History Housing: Condominium Alcohol intake: never Patient Tobacco Use Status: Current everyday Tobacco user Cigarettes Per Day: 12 Years Smoked: 6 e-Cigarette/Vaping Use: Never Used service: No Current occupational status: employed Current occupational exposures/hazards: No Cognitive needs: No Hearing needs: No Vision needs: No Female Reproductive History Menstrual Age of Menarche: 15 Review of Systems Const Reports as per HPI and Reports no additional complaints Physical Exam Const General: cooperative, healthy appearing and well groomed Orientation/consciousness: patient oriented x3 Limitations: no limitations Neuro General: patient oriented x3 Assessment & Plan Assessment & Plan (1) Opioid use disorder in remission: Code(s): F11.91 - Opioid use, unspecified, in remission Category: Medical Plan: * continue suboxone at current dose * follow up 3 months Medications: Refilled buprenorphine-naloxone 8-2 mg (Suboxone) 1 film sublingual DAILY 30 ea 1RF
== END 2024-09-02 15:30 | disposition home or self-care (01) ==
PROVIDERS: PCP Family Medicine; Visit Provider Nurse Practitioner Psychiatric/Mental Health
DX: F11.91 Opioid use, unspecified, in remission (principal)
CPT/HCPCS: 99213

== ENCOUNTER → 2024-09-02 13:50 | Outpatient (BNVA) | payer OTHER, SELFPAY | PROVIDERS: PCP Family Medicine; Visit Provider Nurse Practitioner Psychiatric/Mental Health | DX: F11.21 Opioid dependence, in remission (principal); Z51.81 Encounter for therapeutic drug level monitoring | CPT/HCPCS: 99212 ==

== ENCOUNTER 2024-09-09 13:36 | Outpatient (AMB) | payer OTHER, SELFPAY ==
--- NOTE | 2024-09-09 13:39 | A.OFFPC_ITS ---
Vital Signs 09/09/24 13:44 Height 5 ft 6.4 in Weight 215 lb 2 oz BMI 34.3 BP 134/72 Blood Pressure Location Lt brachial Position Sitting Respiration 14 Pulse 61 Pulse Source Pulse Oximeter Pulse Oximetry (%) 99 Oxygen Delivery Method Room Air Intake Visit Reasons: Bad cough, sinus infection, med review Intake Note: Patient complaining of headache, cough, wheezing, ears are popping x 4 days and also her sinus hurts, patient will also will like to discuss increase on meds. Allergies No Known Allergies Allergy (Verified 09/09/24 14:04) Medication List - Last Reconciled 09/09/24 by Yessica López, CIG[employer] HEAD PERFORATOR- albuterol sulfate 90 mcg/actuation (Ventolin HFA) 2 puffs inhalation Q4-6H PRN 30 days atomoxetine (Strattera) 40 mg PO QAM beclomethasone dipropionate 40 mcg/actuation (Qvar RediHaler) 1 inh inhalation BID 30 days budesonide-formoterol 160-4.5 mcg/actuation (Symbicort) 1 puff inhalation BID 30 days buprenorphine-naloxone 8-2 mg (Suboxone) 1 film sublingual DAILY ferrous sulfate 325 mg PO DAILY 90 days lisinopril 10 mg PO DAILY metoprolol succinate ER 25 mg PO DAILY nicotine (polacrilex) (Nicorette) 2 mg buccal Q8H PRN 28 days pantoprazole 40 mg PO DAILY pregabalin 300 mg PO BID 90 days sertraline 100 mg PO DAILY 90 days Tobacco use date assessed: 05/14/24 Dental Screening Dental Screen Date: 05/14/24 HPI HPI Comments History of Present Illness Details 44 y/o F current smoker with COPD here t gregory with complaints of a sinus infection and a cough Started to feel sick 4 days ago Head pounding, sinus pressure, ears keep popping, nasal drainage when blowing nose feels like under water + smoking cough worse than baseline feels tired and weak Tried therflu and vicks did provide some relief Take prescribed inhalers Not active with pulmonology She also wishes to increase her Strattera. This is managed by her primary care provider. Reports that she has been taking double the dose on her own and has run out. Exam: Awake alert NAD Sclera and conjunctiva clear bilat Nares patent, turbinates within normal limits, + frontal sinus tenderness with palpation bilat TM intact and clear bilat MMM, pharynx WNL RRR LS ins/exp wheeze throughout, felt dizzy w/ deep breathing resolved w/in seconds Plan She reports that she has been active with a dentist for dental extractions and has been on several rounds of amoxicillin. We will treat her today with azithromycin as she reports that she has responded well to this in the past. We will also give her prednisone burst. Also reports she was done well with the son the past. Recommend her to continue her inhalers. I have placed a referral to pulmonology for further management. Smoking cessation encouraged. In regards to her ADHD, advised that she needs to follow up with the primary care provider on this. I have asked for her to schedule an office visit with her primary care next week to follow up on both COPD exacerbation as well as the medication request. Return to office education provided This note is constructed using voice recognition software. While every effort has been made to ensure accuracy in field collector, still errors may have been included Sometimes, these errors may affect the content or meaning of the given sentence . Total time spent caring for the patient today was 30 minutes. This includes time spent before the visit reviewing the chart, time spent during the visit, and time spent after the visit on documentation [facility] Medical History (Updated 08/16/24 @ 11:34 by Richy Ya) Abnormal menstrual periods Obesity (BMI 30.0-34.9) HTN (hypertension) Asthma Bronchitis Surgical History History of section History of hernia repair Family History Father No problems noted. Mother Asthma Brother No problems noted. Brother No problems noted. Sister No problems noted. Sister Breast cancer Daughter No problems noted. Social History Housing: Condominium Alcohol intake: never Patient Tobacco Use Status: Current everyday Tobacco user Cigarettes Per Day: 12 Years Smoked: 6 e-Cigarette/Vaping Use: Never Used service: No Current occupational status: employed Current occupational exposures/hazards: No Cognitive needs: No Hearing needs: No Vision needs: No Female Reproductive History Menstrual Age of Menarche: 15 Questionnaire PHQ-9 Over the last 2 weeks, how often have you been bothered by any of the following problems? 1. Little interest or pleasure in doing things: several days 2. Feeling down, depressed, or hopeless: more than half the days 3. Trouble falling or staying asleep, or sleeping too much: nearly every day 4. Feeling tired or having little energy: nearly every day 5. Poor appetite or overeating: nearly every day 6. Feeling bad about yourself - or that you are a failure or have let yourself or your family down: not at all 7. Trouble concentrating on things, such as reading the newspaper or watching television: nearly every day 8. Moving or speaking so slowly that other people could have noticed. Or the opposite - being so fidgety or restless that you have been moving around a lot more than usual: several days 9. Thoughts that you would be better off or of hurting yourself in some way: not at all Total score: 16 80294 - PHQ-9 Billing: Yes Source: Developed by Drs. Rod Mayer, Alona Carmen, Mushtaq Pino and colleagues, with an educational jose from [employer]. Thrive Questionnaire Date Thrive assessed: 09/01/21 RONNIE-7 AMB Questionnaire RONNIE-7 Date RONNIE - 7 assessed: 09/09/24 Feeling nervous, anxious, or on edge: 3 = Nearly every day Not being able to stop or control worryin = Several days Worrying too much about different things: 2 = More than half the days Trouble relaxin = Nearly every day Being so restless that it is hard to sit still: 3 = Nearly every day Becoming easily annoyed or irritable: 3 = Nearly every day Feeling afraid as if something awful might happen: 0 = Not at all Total RONNIE-7 score (0-4 normal; 5-9 mild; 10-14 moderate; 15-21 severe): 15 Source: Developed by Drs. Rod Mayer, Alona Carmen, Mushtaq Pino and colleagues, with an educational jose from [employer]. RONNIE-7 Assessment Billing RONNIE-7 Assessment Tool: RONNIE-7 Assessment 59764 Physical exam (Primary Care) Vital Signs: Last Vital Signs Pulse 61 09/09/24 13:44 Resp 14 09/09/24 13:44 BP 134/72 09/09/24 13:44 Pulse Ox 99 09/09/24 13:44 Oxygen Delivery Method Room Air 09/09/24 13:44 BMI result Body Mass Index 34.3 Tobacco/Smoking Status: Tobacco use Status Tobacco use date assessed 05/14/24 09/09/24 13:39 Patient Tobacco Use Status Current everyday Tobacco 09/09/24 13:39 Tobacco use type 12/26/23 09:57 e-Cigarette/Vaping Use Never Used 09/09/24 13:39 Tobacco cessation counseling provided: Yes Items discussed: Nicotine replacement, QuitWorks and Other Relapse Prevention: discussed the importance of a supportive environment, discussed extending NRT, discussed negative mood or depression after quitting, weight gain after smoking is common and discussed dietary, exercise and/or lifestyle changes Number of minutes spent counselin CPT code: 45166 - 4-10 Minutes PHQ-9: PHQ-9 Score PHQ-9: Total score 16 09/09/24 13:48 Thrive Assessment: Date of Thrive Assessment Date Thrive assessed 09/01/21 09/09/24 13:39 Coding Level of Care Code Est Pt Level 4 (32354) Complex EM visit Add On G2211 Diagnoses COPD exacerbation J44.1 Smoker F17.200 Concentration deficit R41.840 Additional Codes RONNIE-7 Assessment Billing - RONNIE-7 Assessment Tool: RONNIE-7 Assessment 23781 ([id number]) Vital Signs *Quality* - CPT code: 98497 - 4-10 Minutes ([id number]) Assessment & Plan Assessment & Plan (1) COPD exacerbation: Code(s): J44.1 - Chronic obstructive pulmonary disease with (acute) exacerbation Category: Medical Plan: . (2) Smoker: Code(s): F17.200 - Nicotine dependence, unspecified, uncomplicated Category: Medical Plan: Smoking Cessation How to Quit There are a lot of ways to quit smoking and many resources to help you. Family members, friends, and co-workers may be supportive or encouraging, but to be successful the desire and commitment to quit must be your own. Most people who have been able to successfully quit smoking made at least one unsuccessful attempt in the past. Try not to view past attempts to quit as failures, but rather as learning experiences. Stopping smoking or using smokeless tobacco is difficult, but anyone can do it. Know the symptoms to expect when you stop. Common symptoms include: ? An intense craving for nicotine ? Anxiety, tension, restlessness, frustration, or impatience ? Difficulty concentrating ? Drowsiness or trouble sleeping, as well as bad dreams and nightmares ? Drowsiness and trouble sleeping ? Headaches ? Increased appetite and weight gain ? Irritability or depression How severe your symptoms are depends on how long you smoked and how many cigarettes you smoked each day. Feel ready to quit? ? First and foremost, set a quit date and quit completely on that day. Before your quit date, you may begin reducing your cigarette use. But remember, there is no safe level of cigarette smoking. ? List the reasons why you want to quit. Include both short- and long-term benefits. ? Identify the times you are most likely to smoke. For example, do you tend to smoke when feeling stressed or down? When out at night with friends? While drinking coffee or alcohol? When bored? While driving? Right after a meal or sex? During a work break? While watching TV or playing cards? When you are with other smokers? ? Let all of your friends, family, and co-workers know of your plan to stop smoking and your quit date. Just being aware that they know what you're going through can be helpful, especially when you are grumpy. ? Get rid of all your cigarettes just before the quit date, and clean out anything that smells like smoke, such as clothes and furniture. Make a plan about what you will do instead of smoking at those times when you are most likely to smoke. ? Be as specific as possible. For example, drink tea instead of coffee -- tea may not trigger the desire for a cigarette. Or, take a walk when you feel stressed. ? Remove ashtrays and cigarettes from the car. Place pretzels or hard candies there instead. Pretend-smoke with a straw. ? Find activities that focus your hands and mind but are not taxing or fattening. Computer games, solitaire, knitting, sewing, and crossword puzzles may help. ? If you normally smoke after eating, find other ways to end a meal. Play a tape or CD, eat a piece of fruit, get up and make a phone call, or take a walk (a good distraction that also ibarra calories). Make other changes in your lifestyle. ? Change your daily schedule and habits. Eat at different times or eat several small meals instead of three large ones. Sit in a different chair or even a different room. ? Satisfy your oral habits by eating celery or other low-calorie snack, chewing sugarless gum, or sucking on a cinnamon stick. ? Go to public places and restaurants where smoking is prohibited or restricted. ? Eat regular meals and don't eat too much candy or sweet things. ? Get more exercise. Take walks or ride a bike. Exercise helps relieve the urge to smoke. Set short-term quitting goals and reward yourself when you meet them. ? Every day, put the money you normally spend on cigarettes in a jar. Then buy something pleasurable after a period of time. ? Try not to think about all the days ahead you will need to avoid smoking. Take it one day at a time. ? Even one puff or one cigarette will make your desire for more cigarettes even stronger. However, it is normal to make mistakes. So even if you have one cigarette, you don't need to take the next one. Other tips to help you quit smoking and stick to it: ? Enroll in a smoking cessation program (hospitals, health departments, community centers, and work sites often offer programs). Learn about self-hypnosis or other techniques. ? Ask your health care provider about prescription medications that are safe and appropriate for you. ? Find out about nicotine patches, gum, and sprays. The [employer]'s web site -- www.cancer.org -- is an excellent resource for smokers who are trying to quit, and the [employer] [place] [employer] can help some smokers kick the habit. Above all, don't get discouraged if you aren't able to quit smoking the first time. Nicotine addiction is a hard habit to break. Try something different next time. Develop new strategies, and try again. Many people take several attempts to finally kick the habit. (3) Concentration deficit: Code(s): R41.840 - Attention and concentration deficit Category: Medical Plan: . Orders: Referrals Pulmonology Referral J44.1 - Chronic obstructive pulmonary disease with (acute) exacerbation Medications: New prednisone 50 mg PO DAILY 5 days 5 tabs 0RF azithromycin For 250 mg dose pack: take 500 mg today (day 1), then 250 mg for 4 days (days 2-5) PO 5 days 6 tabs 0RF
[2024-09-09 13:44] VITALS: BP 134/72; PULSE 61; RESP 14; O2SAT 99; BMI 34.3
== END 2024-09-09 14:14 | disposition home or self-care (01) ==
PROVIDERS: PCP Family Medicine; Visit Provider Nurse Practitioner Family
DX: J44.1 Chronic obstructive pulmonary disease with (acute) exacerbation (principal); F17.200 Nicotine dependence, unspecified, uncomplicated; R41.840 Attention and concentration deficit

== ENCOUNTER → 2024-09-09 13:36 | Outpatient (BNVA) | payer OTHER, SELFPAY | PROVIDERS: PCP Family Medicine; Visit Provider Nurse Practitioner Family | DX: J44.1 Chronic obstructive pulmonary disease with (acute) exacerbation (principal); R41.840 Attention and concentration deficit; F17.200 Nicotine dependence, unspecified, uncomplicated; Z71.6 Tobacco abuse counseling | CPT/HCPCS: 96127; 99212 ==

== ENCOUNTER 2024-10-07 09:35 | Outpatient (AMB) | payer OTHER, SELFPAY ==
--- NOTE | 2024-10-07 08:42 | A.OFFVIS_ITS ---
Vital Signs 10/07/24 09:38 Height 5 ft 6.4 in Weight 212 lb 11.937 oz BMI 33.9 BP 140/88 H Blood Pressure Location Rt brachial Position Sitting Pulse 65 Pulse Source Pulse Oximeter Pulse Oximetry (%) 97 Oxygen Delivery Method Room Air Intake Visit Reasons: copd Allergies No Known Allergies Allergy (Verified 10/07/24 09:41) HPI HPI copd: Details: Debra is a pleasant 44 year old female, current smoker, with approximately 10 pyh with underlying asthma and HTN. She was referred by PCP for pulmonary evaluation. She recently was treated with a zpak and prednisone for an asthma exacerbation with good effect and symptoms recurred two weeks after completing medications. She notes symptoms have waxed and waned for several months. She continues to report productive cough with tenacious whitish/brown sputum, dyspnea on exertion, wheezing and chest tightness. She has been maintained on symbicort 160 mcg 1 inhalation BID and using albuterol MDI frequently with suboptimal effect. Previously was on Flovent. She reports asthma diagnosed as an adult, never requiring intubation. She denies hospitalizations related to asthma. She denies h/o recurrent URI. She reports seasonal allergies and has a cat at home, denies recent allergy testing. She reports maternal grandmother with asthma otherwise denies any pertinent family history. She report significant second hand smoke exposure as a child. COUNT INCLUDES THE [facility] Medical History (Updated 10/07/24 @ 09:54 by Ivis White NP) Abnormal menstrual periods Obesity (BMI 30.0-34.9) HTN (hypertension) Asthma Bronchitis Surgical History History of section History of hernia repair Family History Father No problems noted. Mother Asthma Brother No problems noted. Brother No problems noted. Sister No problems noted. Sister Breast cancer Daughter No problems noted. Social History Housing: Condominium Alcohol intake: never Patient Tobacco Use Status: Current everyday Tobacco user Cigarettes Per Day: 12 Years Smoked: 6 e-Cigarette/Vaping Use: Never Used service: No Current occupational status: employed Current occupational exposures/hazards: No Cognitive needs: No Hearing needs: No Vision needs: No Female Reproductive History Menstrual Age of Menarche: 15 Review of Systems Const Denies chills, Denies excessive sweating, Denies fever(s), Denies headache(s) and Denies night sweats Eyes Denies dry eyes, Denies irritation and Denies itchy eyes ENT Reports Normal hearing present, Denies headache(s), Reports hoarseness, Denies nasal congestion, Denies nasal discharge, Reports post nasal drip and Denies sore throat Card Denies chest pain, Denies chest pain at rest, Denies chest pain with activity, Denies claudication, Denies leg edema, Reports dyspnea on exertion, Denies orthopnea and Denies paroxysmal nocturnal dyspnea Resp Reports change in phlegm color, Denies chest congestion, Reports cough, Denies hemoptysis, Denies excessive phlegm production, Denies pain on inspiration, Denies pain with cough, Reports dyspnea on exertion, Denies stridor and Reports wheezing Musc Denies myalgias Neuro Reports Normal hearing present and Denies headache(s) Endo Denies excessive sweating Hollis/Lymph Denies lymphadenopathy Aller/Immun Denies itchy eyes, Denies seasonal rhinorrhea and Reports wheezing Physical Exam Vital Signs: Last Vital Signs Pulse 65 10/07/24 09:38 BP 140/88 H 10/07/24 09:38 Pulse Ox 97 10/07/24 09:38 Oxygen Delivery Method Room Air 10/07/24 09:38 BMI result Body Mass Index 33.9 Const General: cooperative, healthy appearing, comfortable, no acute distress, well developed and alert Orientation/consciousness: patient oriented x3 Limitations: no limitations HEENT Head: Yes normal to inspection, Yes normocephalic and Yes atraumatic Ears: hearing grossly normal bilaterally and external ears normal Eyes General: appearance normal, both eyes and all related structures Eyelids: Yes eyelids normal Sclerae: sclerae normal EOM: EOMs intact bilaterally Neck Neck: Yes normal visual inspection and Yes no lymphadenopathy Lymphatic: no lymphadenopathy noted Chest Chest palpation & inspection: normal inspection of the chest Resp Effort & Inspection: normal respiratory effort, able to speak in complete sentences, no audible wheezes, no cough, no stridor, not tachypneic, no tripod positioning and no use of accessory muscles Auscultation: no crackles, rhonchi throughout and wheezes expiratory wheezes and throughout Cardio Jugular venous distension: no JVD Rate: regular rate Rhythm: regular rhythm Skin Other: warm, dry General skin exam: no rashes or lesions noted Neuro General: patient oriented x3 Cranial nerves: Yes Normal hearing present Cognition (Neuro): normal cognition Gait exam (Neuro): Normal gait present Extrem General: Yes normal to inspection, Yes capillary refill normal, Yes no clubbing, cyanosis or edema and Yes no pedal edema Psych Appearance: grossly normal and well kempt Speech and movement: Normal speech and movement present and Clear speech present Affect: normal affect Attitude: cooperative Thought process: Normal thought process present Thought content: Normal thought content present Insight: Good insight present (Psych) Judgement: Good judgement present (Psych) Assessment & Plan Assessment & Plan (1) Asthma: Code(s): J45.909 - Unspecified asthma, uncomplicated Category: Medical (2) Smoker: Code(s): F17.200 - Nicotine dependence, unspecified, uncomplicated Category: Social Hx (3) Environmental allergies: Code(s): Z91.09 - Other allergy status, other than to drugs and biological substances Category: Medical (4) Cough: Code(s): R05.9 - Cough, unspecified Category: Medical Plan Will treat bronchitic symptoms with vantin and prednisone. Her symptoms are likely related to underlying asthma/COPD with an allergic component. Will send for PFT to evaluate severity of obstructive defect. Will send for CXR, consider chest CT in the future given smoking history. Will send for RAST to assess for an allergic component. Recommended to trial nasal spray and antihistmine given allergic symptoms. Discussed ways to minimize allergen exposure. Advised to increase Symbicort to two inhalations BID. All questions were answered and patient is in agreement of plan. Will follow up to review results or sooner if needed. Orders: Orders XR chest 2V Today R05.9 - Cough, unspecified Resp Allergy Profile Region I Today Z91.09 - Other allergy status, other than to drugs and biological substances Immunoglobulin E Today Z91.09 - Other allergy status, other than to drugs and biological substances Complete Blood Count Auto Diff Today Z91.09 - Other allergy status, other than to drugs and biological substances PFT pulmonary function test Today J45.909 - Unspecified asthma, uncomplicated Medications: New cefpodoxime must administer with a meal/food 200 mg PO BID 20 tabs 0RF prednisone see taper instructions; 40 mg Daily x3 days, 30 mg daily x3 days, 20 mg daily x3 days, 10 mg daily x3 days 10 mg PO DIRECTED 30 tabs 0RF Coding Level of Care Code New Pt Level 4 (20304) Diagnoses Asthma J45.909 Smoker F17.200 Environmental allergies Z91.09 Cough R05.9
[2024-10-07 09:38] VITALS: BP 140/88; PULSE 65; O2SAT 97; BMI 33.9
== END 2024-10-07 10:14 | disposition home or self-care (01) ==
PROVIDERS: PCP Family Medicine; Visit Provider Nurse Practitioner Family
DX: J45.909 Unspecified asthma, uncomplicated (principal); F17.200 Nicotine dependence, unspecified, uncomplicated; Z91.09 Other allergy status, other than to drugs and biological substances; R05.9 Cough, unspecified
CPT/HCPCS: 99204

== ENCOUNTER 2024-10-07 09:35 | Outpatient (REF) | payer OTHER, SELFPAY ==
--- NOTE | ~2024-10-07 | XR_ITS ---
EXAMINATION: XR CHEST CLINICAL INFORMATION: Cough COMPARISON: None available. TECHNIQUE: 2 views of the chest were obtained. FINDINGS: The lungs are well-expanded. No focal consolidation. Minimal streaky linear opacities in the lingula. No pleural effusions or pneumothorax. The cardiomediastinal silhouette is within normal limits. Degenerative changes of thoracic spine. No acute osseous abnormality. XR/XR chest 2V IMPRESSION: Minimal streaky linear opacities in the lingula favored to represent atelectasis. No focal consolidation. Electronically signed by: Rodo Yusuf MD 10/07/2024 12:00 PM [facility]
[2024-10-07 10:44] LABS: MANUAL DIFF FLAG NO
[2024-10-07 11:00] LABS: Basophils Absolute Auto 0.1 X10*3/uL (0.0-0.2); Basophils Percent Auto 1.1 % (0-2); Eosinophils Absolute Auto 0.9 X10*3/uL (0.0-0.4); Eosinophils Percent Auto 10.9 % (0-4); Hematocrit 36.4 % (37.0-47.0); Hemoglobin 12.4 g/dl (12.0-16.0); Imm Gran Abs Auto 0.02 X10*3/uL (0.00-0.03); Imm Gran Pct Auto 0.2 % (0.0-0.4); Lymphocytes Percent Auto 37.3 % (20-40); Mean Corpuscular HGB Conc 34.1 g/dl (31.0-35.0); Mean Corpuscular Hemoglobin 29.8 pg (27.0-33.0); Mean Corpuscular Volume 87.5 fL (80.0-98.0); Mean Platelet Volume 11.1 fL (9.4-12.3); Monocytes Absolute Auto 0.7 X10*3/uL (0.1-1.2); Monocytes Percent Auto 8.3 % (2-11); Neutrophils Absolute Auto 3.4 x10*3/uL (2.0-8.3); Neutrophils Percent Auto 42.2 % (45-73); Platelet Count 232 X10*3/uL (160-400); Red Blood Count 4.16 X10*6/uL (4.20-5.50); Red Cell Distribution Width 18.7 % (11.0-16.0); White Blood Count 8.1 X10*3/uL (4.8-10.8)
[2024-10-07 11:35] LABS: Alanine Aminotransferase 15 U/L (0-31); Albumin Level 4.3 g/dL (3.5-5.0); Alkaline Phosphatase 49 U/L (39-117); Anion Gap 10 (12-20); Aspartate Amino Transferase 18 U/L (5-31); Bilirubin Total 0.2 mg/dL (0.0-1.0); Blood Urea Nitrogen 10 mg/dL (9-16); Calcium 8.9 mg/dL (8.4-10.2); Carbon Dioxide 25 mmol/L (22-29); Chloride 108 mmol/L (96-108); Cholesterol 252 mg/dL (<200); Estimated Glomerular Filt Rate > 60; Glucose Fasting 87 mg/dL (60-99); HDL Cholesterol 47 mg/dL (>40); Iron 104 mcg/dL (30-160); LDL Cholesterol Calculated 166 mg/dL (<100); Percent Iron Saturation 28 % (15-50); Potassium 3.9 mmol/L (3.3-5.1); Sodium 139 mmol/L (135-145); Total Iron Binding Capacity 375 mcg/dL (228-428); Total Protein 7.4 g/dL (6.5-8.0); Triglycerides 198 mg/dL (<150); Unsaturated Iron Binding 271 ug/dL
[2024-10-07 11:59] LABS: TSH reflex Free T4 1.85 uIU/mL (0.32-4.0)
[2024-10-07 12:14] LABS: Folate 18.8 ng/mL (> or = 4.0); Vitamin B12 395 pg/mL (200-900)
[2024-10-09 00:08] LABS: Class Alternaria alternata 0; Class Aspergillus fumigatus 0; Class Bermuda Grass 0; Class Birch 0; Class Cat Dander 0; Class Cladosporium herbarum 0; Class Cockroach 0; Class Common Ragweed 0; Class Cottonwood 0; Class Derm. pterony 0; Class Dermatophagoides farinae 0; Class Dog Dander 0; Class Elm 0; Class Maple Box Elder 0; Class Mountain Cedar 0; Class Mouse Urine Protein 0; Class Mugwort 0; Class Oak 0; Class Penicillium crysogenum 0; Class Rough Pigweed 0; Class Sheep Sorrel 0; Class Sycamore 0; Class Timothy Grass 0; Class Walnut Tree 0; Class White Ash 0; Class White Mulberry 0; D001 IgE D pteronyssinus <0.10 kU/L; D002 - IgE D farinae <0.10 kU/L; E001 - IgE Cat Dander <0.10 kU/L; E005 - IgE Dog Dander <0.10 kU/L; E072-IgE Mouse Urine <0.10 kU/L; G002 IgE Bermuda Grass <0.10 kU/L; G006 - IgE Timothy Grass <0.10 kU/L; I006-IgE Cockroach, German <0.10 kU/L; Immunoglobulin E 26 kU/L (<OR=114); M001 IgE Penicillium chrysogen <0.10 kU/L; M002 - IgE Cladosporium herbar <0.10 kU/L; M003 - IgE Aspergillus fumigat <0.10 kU/L; M006 - IgE Alternaria alternat <0.10 kU/L; T001 IgE Maple/Box Elder <0.10 kU/L; T003 IgE Common Silver Birch <0.10 kU/L; T006 - IgE Cedar, Mountain <0.10 kU/L; T007 - IgE Oak, White <0.10 kU/L; T008 IgE Elm, American <0.10 kU/L; T010 - IgE Walnut <0.10 kU/L; T011 - IgE Maple Leaf Sycamore <0.10 kU/L; T014 - IgE Cottonwood <0.10 kU/L; T015 - IgE Ash, White <0.10 kU/L; T070 - IgE White Mulberry <0.10 kU/L; W001 - IgE Ragweed, Short <0.10 kU/L; W006 - IgE Mugwort <0.10 kU/L; W014 IgE Pigweed, Common <0.10 kU/L; W018 IgE Sheep Sorrel <0.10 kU/L
== END 2024-10-07 09:36 | disposition home or self-care (01) ==
LOC: HO.XRAY 09:35
PROVIDERS: Physician Assistant; PCP Family Medicine; Visit Provider Nurse Practitioner Family
DX: Z00.00 Encounter for general adult medical examination without abnormal findings (principal); R05.9 Cough, unspecified; D64.9 Anemia, unspecified; E78.5 Hyperlipidemia, unspecified; I10 Essential (primary) hypertension; E78.1 Pure hyperglyceridemia; F41.9 Anxiety disorder, unspecified; F32.9 Major depressive disorder, single episode, unspecified; Z91.09 Other allergy status, other than to drugs and biological substances; J45.909 Unspecified asthma, uncomplicated; F17.200 Nicotine dependence, unspecified, uncomplicated
CPT/HCPCS: 36415; 71046; 80053; 80061; 82607; 82746; 82785; 83540; 84443; 85025; 86003; 99202

== ENCOUNTER 2024-10-17 14:50 | Outpatient (AMB) | payer OTHER, SELFPAY ==
--- NOTE | 2024-10-17 14:51 | MHC.OFFVIS ---
Intake Visit Reasons: med f/u -- Android [phone] Allergies No Known Allergies Allergy (Verified 10/07/24 09:41) Medication List - Last Reconciled 10/17/24 by Aniyah Nath PA-C albuterol sulfate 90 mcg/actuation (Ventolin HFA) 2 puffs inhalation Q4-6H PRN 30 days atomoxetine (Strattera) 40 mg PO QAM budesonide-formoterol 160-4.5 mcg/actuation (Symbicort) 1 puff inhalation BID 30 days buprenorphine-naloxone 8-2 mg (Suboxone) 1 film sublingual DAILY ferrous sulfate 325 mg PO DAILY 90 days lisinopril 10 mg PO DAILY metoprolol succinate ER 25 mg PO DAILY pantoprazole 40 mg PO DAILY prednisone 10 mg PO DIRECTED pregabalin 300 mg PO BID 90 days sertraline 100 mg PO DAILY 90 days HPI HPI med f/u -- Android [phone]: Details: patient is a 44-year-old female who presents today for a follow up. She has a significant past medical history of anxiety, depression, ADHD, substance abuse, iron-deficiency anemia, GERD, hypertension and is here today to discuss her ADHD. Psych: States that her anxiety and depression is pretty well-controlled right now with the sertraline 100 mg. She was recently started Strattera 40 mg which she has felt somewhat helpful but she thinks that she needs a higher dose. She feels it wearing off part way through the day. She does not currently have a psychiatrist. She has been referred to behavioral health and is not currently seeing anyone other than addiction Medicine. CV: States that her blood pressures have been really well-controlled with the lisinopril 10 mg and the metoprolol 25 mg. [facility] Medical History (Updated 10/07/24 @ 09:54 by Ivis White NP) Abnormal menstrual periods Obesity (BMI 30.0-34.9) HTN (hypertension) Asthma Bronchitis Surgical History History of section History of hernia repair Family History Father No problems noted. Mother Asthma Brother No problems noted. Brother No problems noted. Sister No problems noted. Sister Breast cancer Daughter No problems noted. Social History Housing: Condominium Alcohol intake: never Patient Tobacco Use Status: Current everyday Tobacco user Cigarettes Per Day: 12 Years Smoked: 6 e-Cigarette/Vaping Use: Never Used service: No Current occupational status: employed Current occupational exposures/hazards: No Cognitive needs: No Hearing needs: No Vision needs: No Female Reproductive History Menstrual Age of Menarche: 15 Telehealth Telehealth Telehealth Platform: Telephone Location of provider rendering services: practice address Location of patient: address on file Patient Identification confirmed using: Name, : Yes Telehealth method: voice only Patient verbally consented to treatment: Yes Patient verbally consented to billing insurance company: Yes Patient informed of any privacy concerns related to visit: Yes Minutes spent on Phone/Video with Pt.: 12 Assessment & Plan Assessment & Plan (1) Concentration deficit: Code(s): R41.840 - Attention and concentration deficit Category: Medical Plan: Increase Strattera. Encouraged patient to psychiatrist and follow up behavioral health. We will short term follow up in 1 month to be reassessed. Sooner if needed. (2) Anxiety and depression: Code(s): F41.9 - Anxiety disorder, unspecified; F32.9 - Major depressive disorder, single episode, unspecified Category: Medical Plan: Stable. Continue current regimen. Medications: New atomoxetine 60 mg PO QAM 30 caps 3RF Discontinued atomoxetine (Strattera) Discontinued Reason: Doctor's Order 40 mg PO QAM 90 caps 0RF Coding Level of Care Code Tele Est Pt Level 2 (73368) Diagnoses Concentration deficit R41.840 Anxiety and depression F41.9; F32.9
== END 2024-10-17 14:56 | disposition home or self-care (01) ==
LOC: HO.HMCFM 14:50
PROVIDERS: PCP Family Medicine; Visit Provider Physician Assistant
DX: R41.840 Attention and concentration deficit (principal); F41.9 Anxiety disorder, unspecified; F32.9 Major depressive disorder, single episode, unspecified

== ENCOUNTER → 2024-10-17 14:50 | Outpatient (BNVA) | payer OTHER, SELFPAY | PROVIDERS: PCP Family Medicine; Visit Provider Physician Assistant ==

== ENCOUNTER 2024-11-18 14:06 | Outpatient (AMB) | payer OTHER, SELFPAY ==
--- NOTE | 2024-11-18 13:14 | MHC.OFFVIS ---
Vital Signs 11/18/24 14:12 Height 5 ft 6.4 in Weight 218 lb 4.122 oz BMI 34.8 BP 130/86 Blood Pressure Location Rt brachial Position Sitting Pulse 75 Pulse Source Pulse Oximeter Pulse Oximetry (%) 100 Oxygen Delivery Method Room Air Intake Visit Reasons: COPD Allergies No Known Allergies Allergy (Verified 11/18/24 14:16) HPI HPI COPD: Details: Debra is a pleasant 44 year old female, current smoker, with approximately 10 pyh with underlying asthma and HTN. She has been maintained on symbicort 160 mcg and using albuterol MDI 2-3 times per day with suboptimal effect. At the last visit, she was treated with prednisone and vantin, as she had suboptimal response to zpak and prednisone for an asthma exacerbation. She continues to report chest tightness, productive cough with yellow sputum, wheezing, dyspnea. Denies fevers, sick contacts or chills. Of note, she does report younger sister with cystic fibrosis. She denies any visits to urgent care or hospitalizations related to respiratory distress since the last visit. Today she presents to review RAST, awaiting PFT to be scheduled. [facility] Medical History (Updated 11/22/24 @ 10:04 by Ivis White NP) Abnormal menstrual periods Obesity (BMI 30.0-34.9) HTN (hypertension) Asthma Bronchitis Surgical History History of section History of hernia repair Family History Father No problems noted. Mother Asthma Brother No problems noted. Brother No problems noted. Sister No problems noted. Sister Breast cancer Daughter No problems noted. Social History Housing: Condominium Alcohol intake: never Patient Tobacco Use Status: Current everyday Tobacco user Cigarettes Per Day: 12 Years Smoked: 6 e-Cigarette/Vaping Use: Never Used service: No Current occupational status: employed Current occupational exposures/hazards: No Cognitive needs: No Hearing needs: No Vision needs: No Female Reproductive History Menstrual Age of Menarche: 15 Review of Systems Const Denies chills, Denies excessive sweating, Denies fever(s), Denies headache(s) and Denies night sweats Eyes Denies dry eyes, Denies irritation and Denies itchy eyes ENT Reports Normal hearing present and Denies headache(s) Card Denies chest pain, Denies chest pain at rest, Denies chest pain with activity, Denies claudication, Denies leg edema, Reports dyspnea on exertion, Denies orthopnea and Denies paroxysmal nocturnal dyspnea Resp Reports change in phlegm color, Denies chest congestion, Reports cough, Denies hemoptysis, Denies excessive phlegm production, Denies pain on inspiration, Denies pain with cough, Reports dyspnea on exertion, Denies stridor and Reports wheezing Musc Denies myalgias Neuro Reports Normal hearing present and Denies headache(s) Endo Denies excessive sweating Hollis/Lymph Denies lymphadenopathy Aller/Immun Denies itchy eyes, Denies seasonal rhinorrhea and Reports wheezing Physical Exam Vital Signs: Last Vital Signs Pulse 75 11/18/24 14:12 BP 130/86 11/18/24 14:12 Pulse Ox 100 11/18/24 14:12 Oxygen Delivery Method Room Air 11/18/24 14:12 BMI result Body Mass Index 34.8 Const General: cooperative, healthy appearing, comfortable, no acute distress, well developed and alert Orientation/consciousness: patient oriented x3 Limitations: no limitations HEENT Head: Yes normal to inspection, Yes normocephalic and Yes atraumatic Ears: hearing grossly normal bilaterally and external ears normal Eyes General: appearance normal, both eyes and all related structures Eyelids: Yes eyelids normal Sclerae: sclerae normal EOM: EOMs intact bilaterally Neck Neck: Yes normal visual inspection and Yes no lymphadenopathy Lymphatic: no lymphadenopathy noted Chest Chest palpation & inspection: normal inspection of the chest Resp Effort & Inspection: normal respiratory effort, able to speak in complete sentences, no audible wheezes, no cough, no stridor, not tachypneic, no tripod positioning and no use of accessory muscles Auscultation: no crackles, rhonchi throughout and wheezes expiratory wheezes and throughout Cardio Jugular venous distension: no JVD Rate: regular rate Rhythm: regular rhythm Skin Other: warm, dry General skin exam: no rashes or lesions noted Neuro General: patient oriented x3 Cranial nerves: Yes Normal hearing present Cognition (Neuro): normal cognition Gait exam (Neuro): Normal gait present Extrem General: Yes normal to inspection, Yes capillary refill normal, Yes no clubbing, cyanosis or edema and Yes no pedal edema Psych Appearance: grossly normal and well kempt Speech and movement: Normal speech and movement present and Clear speech present Affect: normal affect Attitude: cooperative Thought process: Normal thought process present Thought content: Normal thought content present Insight: Good insight present (Psych) Judgement: Good judgement present (Psych) Results Reviewed Results Reviewed: [address] [address] XRay Report Signed Patient: Debra Carbajal MR#: [id number] : 1980 Acct:[id number] Age/Sex: 44 / F ADM Date: 10/07/24 Loc: [facility] Attending Dr: Ivis White NP Ordering Physician: Ivis White NP Date of Service: 10/07/24 Procedure(s): XR chest 2V Accession Number(s): [id number] cc: Ashu Whitt MD; Ivis White NP~ EXAMINATION: XR CHEST CLINICAL INFORMATION: Cough COMPARISON: None available. TECHNIQUE: 2 views of the chest were obtained. FINDINGS: The lungs are well-expanded. No focal consolidation. Minimal streaky linear opacities in the lingula. No pleural effusions or pneumothorax. The cardiomediastinal silhouette is within normal limits. Degenerative changes of thoracic spine. No acute osseous abnormality. XR/XR chest 2V IMPRESSION: Minimal streaky linear opacities in the lingula favored to represent atelectasis. No focal consolidation. 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 Will also send for sputum as patient with suboptimal response to zpak and vantin. PFT scheduled 11/22. RAST negative, however eosinophilia noted on recent bloodwork. Discussed likelihood of eosinophilic component contributing to symptoms. Prior CXR revealed streak opacities of lingula, will send for Chest CT to further evaluate. Will also assess for any bronchiectasis, as sister with h/o of CF. Smoking cessation reviewed. All questions were answered and patient is in agreement of plan. Will follow up in 2-4 weeks or sooner if needed. Orders: Orders CT chest wo IV con Today R05.9 - Cough, unspecified Sputum Cult + Gram stain 11/21/24 R05.9 - Cough, unspecified Medications: New prednisone see taper instructions; 40 mg Daily x3 days, 30 mg daily x3 days, 20 mg daily x3 days, 10 mg daily x3 days 10 mg PO DIRECTED 30 tabs 0RF Coding Level of Care Code Est Pt Level 4 (63153) Diagnoses Asthma J45.909 Smoker F17.200 Cough R05.9 Eosinophilia D72.10
[2024-11-18 14:12] VITALS: BP 130/86; PULSE 75; O2SAT 100; BMI 34.8
== END 2024-11-18 15:23 | disposition home or self-care (01) ==
PROVIDERS: PCP Family Medicine; Visit Provider Nurse Practitioner Family
DX: J45.909 Unspecified asthma, uncomplicated (principal); F17.200 Nicotine dependence, unspecified, uncomplicated; R05.9 Cough, unspecified; D72.10 Eosinophilia, unspecified
CPT/HCPCS: 99214

== ENCOUNTER → 2024-11-18 14:06 | Outpatient (BNVA) | payer OTHER, SELFPAY | PROVIDERS: PCP Family Medicine; Visit Provider Nurse Practitioner Family | DX: J45.909 Unspecified asthma, uncomplicated (principal); R05.9 Cough, unspecified; D72.10 Eosinophilia, unspecified; F17.210 Nicotine dependence, cigarettes, uncomplicated | CPT/HCPCS: 99212 ==

== ENCOUNTER 2024-11-18 14:20 | Outpatient (REF) | payer OTHER, SELFPAY | END 2024-11-18 14:21 | disposition home or self-care (01) | LOC: HO.LNP 14:20 | PROVIDERS: Visit Provider Nurse Practitioner Family | DX: Z13.89 Encounter for screening for other disorder (principal) ==

== ENCOUNTER 2024-11-21 13:07 | Outpatient (REF) | payer OTHER, SELFPAY ==
[2024-11-21 10:21] VITALS: PULSE 81; O2SAT 97
--- NOTE | 2024-11-21 13:11 | PFT_ITS ---
Flows: FEV1: 105 % of predicted at 3.42 L FVC: 109 % of predicted at 4.14 L FEV1/FVC: 83 % Bronchodilator response: Absent Volumes: Total lung capacity: 100 % of predicted at 5.51 L Residual volume: 95 % of predicted at 1.37 L Slow vital capacity: 102 % of predicted at 4.14 L Expiratory reserve volume: 56 % of predicted at 0.69 L Diffusion capacity: Normal Impression: No obstructive or restrictive ventilatory defect. No bronchodilator response. Decreased expiratory reserve volume suggests extrathoracic restriction likely secondary to abdominal obesity. MTDD
== END 2024-11-21 13:08 | disposition home or self-care (01) ==
LOC: HO.RESP 13:07
PROVIDERS: PCP Family Medicine; Visit Provider Nurse Practitioner Family
DX: J45.909 Unspecified asthma, uncomplicated (principal)
CPT/HCPCS: 94010; 94640; 94727; 94729

== ENCOUNTER → 2024-11-21 13:11 | Outpatient (BNV) | payer OTHER, SELFPAY | PROVIDERS: PCP Family Medicine; Visit Provider Internal Medicine Pulmonary Disease | DX: J45.909 Unspecified asthma, uncomplicated (principal) | CPT/HCPCS: 94060; 94727; 94729 ==

== ENCOUNTER 2024-12-12 15:33 | Outpatient (AMB) | payer OTHER, SELFPAY ==
--- NOTE | 2024-12-12 14:43 | A.OFFPC_ITS ---
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 Allergies No Known Allergies Allergy (Verified 12/12/24 14:43) Medication List - Last Reconciled 12/12/24 by Aniyah Nath PA-C albuterol sulfate 90 mcg/actuation (Ventolin HFA) 2 puffs inhalation Q4-6H PRN 30 days atomoxetine (Strattera) 80 mg (2 x 40 mg) PO DAILY 90 days budesonide-formoterol 160-4.5 mcg/actuation (Symbicort) 1 puff inhalation BID 30 days buprenorphine-naloxone 8-2 mg (Suboxone) 1 film sublingual DAILY ferrous sulfate 325 mg PO DAILY 90 days lisinopril 10 mg PO DAILY metoprolol succinate ER 25 mg PO DAILY pantoprazole 40 mg PO DAILY pregabalin 300 mg PO BID 90 days sertraline 100 mg PO DAILY 90 days Tobacco use date assessed: 12/12/24 Dental Screening Dental Screen Date: 05/14/24 HPI med follow up HPI Details Patient is a 44-year-old female who presents today for a follow up. She has a significant past medical history of anxiety, depression, ADHD, substance abuse, iron-deficiency anemia, GERD, hypertension and is here today to discuss her ADHD. Psych: States that her anxiety and depression is pretty well-controlled right now with the sertraline 100 mg. She thinks that she would benefit from an increased dose of Strattera. She is currently on 60 mg.. She has been referred to behavioral health and is not currently seeing anyone other than addiction Medicine. CV: States that her blood pressures have been really well-controlled with the lisinopril 10 mg and the metoprolol 25 mg. She has been working on a low-fat diet and would like to avoid taking a statin. Heme: She is a little concerned because her eosinophils are persistently elevated. She is following with pulmonology and she states that she did allergy testing and they were exactly sure why her eosinophils are so elevated. She does also have a mild anemia and is on iron supplements. Anemia has improved with the iron supplements. She states that she infrequently gets her period. When she was iron deficient she had not had a period in about 8 or 9 months. She did recently have a regular but it is infrequent. She denies ever having a colonoscopy or endoscopy. She does have a history of GERD is on pantoprazole. She states that she has followed with GI. [facility] Medical History (Updated 11/22/24 @ 10:04 by Ivis White NP) Abnormal menstrual periods Obesity (BMI 30.0-34.9) HTN (hypertension) Asthma Bronchitis Surgical History History of section History of hernia repair Family History Father No problems noted. Mother Asthma Brother No problems noted. Brother No problems noted. Sister No problems noted. Sister Breast cancer Daughter No problems noted. Social History (Updated 12/12/24 @ 14:51 by Ashley Bess CMA) Housing: Condominium Alcohol intake: never Patient Tobacco Use Status: Current everyday Tobacco user Cigarettes Per Day: 12 Years Smoked: 6 Packs per year/per ci.60 e-Cigarette/Vaping Use: Never Used Use of substances other than those prescribed or required for medical reasons: No service: No Current occupational status: employed Current occupational exposures/hazards: No Cognitive needs: No Hearing needs: No Vision needs: No Female Reproductive History Menstrual Age of Menarche: 15 Questionnaire Thrive Questionnaire Date Thrive assessed: 09/01/21 RONNIE-7 AMB Questionnaire RONNIE-7 Date RONNIE - 7 assessed: 09/09/24 Source: Developed by Drs. Rod Mayer, Alona Carmen, Mushtaq Pino and colleagues, with an educational jose from [employer]. Physical exam (Primary Care) Tobacco/Smoking Status: Tobacco use Status Tobacco use date assessed 12/12/24 12/12/24 14:51 Patient Tobacco Use Status Current everyday Tobacco 12/12/24 14:51 Tobacco use type 12/26/23 09:57 e-Cigarette/Vaping Use Never Used 12/12/24 14:51 Thrive Assessment: Date of Thrive Assessment Date Thrive assessed 09/01/21 12/12/24 14:47 Telehealth Telehealth Telehealth Platform: Telephone Location of provider rendering services: practice address Location of patient: address on file Patient Identification confirmed using: Name, : Yes Telehealth method: voice only Patient verbally consented to treatment: Yes Patient verbally consented to billing insurance company: Yes Patient informed of any privacy concerns related to visit: Yes Minutes spent on Phone/Video with Pt.: 20 Results Reviewed Results Reviewed: Laboratory Tests 10/07/24 10:42 Sodium 139 Potassium 3.9 Chloride 108 Carbon Dioxide 25 Anion Gap 10 L BUN 10 Creatinine 0.75 Estimated GFR > 60 Fasting Glucose 87 Calcium 8.9 D Iron 104 AST 18 ALT 15 Triglycerides 198 H Cholesterol 252 H LDL Cholesterol, Calc 166 H HDL Cholesterol 47 Vitamin B12 395 TSH 1.85 Coding Level of Care Code Tele Est Pt Level 3 (97358) Diagnoses Eosinophilia D72.10 Mild anemia D64.9 Smoker F17.200 Primary hypertension I10 Hypertension type: primary hypertension Anxiety and depression F41.9; F32.9 Concentration deficit R41.840 Assessment & Plan Assessment & Plan (1) Eosinophilia: Code(s): D72.10 - Eosinophilia, unspecified Category: Medical Plan: Continue workup with pulmonology. Referral to Hematology. (2) Mild anemia: Code(s): D64.9 - Anemia, unspecified Category: Medical Plan: As above. She does appear to be absorbing the iron. I have referred her to GI for consultation as she endorses and iron-deficiency anemia in the setting of no menses. (3) Smoker: Code(s): F17.200 - Nicotine dependence, unspecified, uncomplicated Category: Social Hx Plan: Encouraged smoking cessation. (4) HTN (hypertension): Code(s): I10 - Essential (primary) hypertension Category: Medical Qualifiers: Hypertension type: primary hypertension Qualified Code(s): I10 - Essential (primary) hypertension Plan: Reports normal readings at home. Continue current regimen (5) Anxiety and depression: Code(s): F41.9 - Anxiety disorder, unspecified; F32.9 - Major depressive disorder, single episode, unspecified Category: Medical Plan: Continue sertraline. Increased Strattera. (6) Concentration deficit: Code(s): R41.840 - Attention and concentration deficit Category: Medical Plan: As above. Advised to follow up with behavioral health. Orders: Orders Complete Blood Count Auto Diff 12/12/24 D64.9 - Anemia, unspecified, D72.10 - Eosinophilia, unspecified, F17.200 - Nicotine dependence, unspecified, uncomplicated, F32.9 - Major depressive disorder, single episode, unspecified, F41.9 - Anxiety disorder, unspecified Comprehensive [place]. Panel Fast 12/12/24 D64.9 - Anemia, unspecified, D72.10 - Eosinophilia, unspecified, F17.200 - Nicotine dependence, unspecified, uncomplicated, F32.9 - Major depressive disorder, single episode, unspecified, F41.9 - Anxiety disorder, unspecified Ferritin 12/12/24 D64.9 - Anemia, unspecified, D72.10 - Eosinophilia, unspecified, F17.200 - Nicotine dependence, unspecified, uncomplicated, F32.9 - Major depressive disorder, single episode, unspecified, F41.9 - Anxiety disorder, unspecified IRON PROFILE 12/12/24 D64.9 - Anemia, unspecified, D72.10 - Eosinophilia, unspecified, F17.200 - Nicotine dependence, unspecified, uncomplicated, F32.9 - Major depressive disorder, single episode, unspecified, F41.9 - Anxiety disorder, unspecified TSH reflex Free T4 12/12/24 D64.9 - Anemia, unspecified, D72.10 - Eosinophilia, unspecified, F17.200 - Nicotine dependence, unspecified, uncomplicated, F32.9 - Major depressive disorder, single episode, unspecified, F41.9 - Anxiety disorder, unspecified Referrals Gastroenterology Referral D64.9 - Anemia, unspecified Hematology & Oncology Referral D64.9 - Anemia, unspecified, D72.10 - Eosinophilia, unspecified Medications: New atomoxetine (Strattera) 80 mg (2 x 40 mg) PO DAILY 90 days 180 caps 1RF Discontinued atomoxetine Discontinued Reason: Duplicate 60 mg PO QAM 30 caps 3RF
== END 2024-12-12 16:38 | disposition home or self-care (01) ==
LOC: HO.HMCFM 15:33
PROVIDERS: PCP Family Medicine; Visit Provider Physician Assistant
DX: D72.10 Eosinophilia, unspecified (principal); D64.9 Anemia, unspecified; F17.200 Nicotine dependence, unspecified, uncomplicated; I10 Essential (primary) hypertension; F41.9 Anxiety disorder, unspecified; F32.9 Major depressive disorder, single episode, unspecified; R41.840 Attention and concentration deficit

== ENCOUNTER → 2024-12-12 15:33 | Outpatient (BNVA) | payer OTHER, SELFPAY | PROVIDERS: PCP Family Medicine; Visit Provider Physician Assistant ==

== ENCOUNTER 2025-01-23 12:39 | Emergency (ER) | payer OTHER, SELFPAY ==
--- NOTE | ~2025-01-23 | CT_ITS ---
CLINICAL HISTORY: Lower abdominal pain. Blood in stool. Colitis? CT abdomen and pelvis without contrast Comparison: None Findings: The lung bases are clear. The unenhanced liver, gallbladder, spleen, adrenal glands and pancreas are unremarkable. Kidneys, ureters and bladder are within normal limits. Uterus and adnexa demonstrate no suspicious abnormality. Right adnexal cyst noted. Mild diverticulosis. No evidence of diverticulitis. Normal appendix. No bowel obstruction, free air, free fluid or abscess. No acute osseous finding. Impression: No acute process. Minimal diverticulosis without evidence of diverticulitis. This document has been electronically signed by: Gregorio Costello MD on 01/23/2025 17:46:12
--- NOTE | ~2025-01-23 | US_ITS ---
CLINICAL HISTORY: RLQ pain, vomiting, cyst on CT confirm flow US pelvis transabdominal and transvaginal with Doppler Comparison: None Findings: Transabdominal scanning performed for overall anatomy. Transvaginal scanning performed for additional detail. Anteverted uterus is 11.8 cm length. Normal myometrium. Endometrium 14 mm thickness. Right ovary 3.2 x 2.6 x 2.1 cm. There is a thin-walled 2.3 x 1.6 x 1.8 cm cyst, almost certainly benign. Left ovary notvisualized. Normal color Doppler with arterial/venous spectral tracing of right ovary. No free fluid. IMPRESSION: 1. Almost certainly benign right ovarian cyst. 2. Otherwise unremarkable exam This document has been electronically signed by: Franco Reed MD on 01/23/2025 19:09:34
[2025-01-23 13:30] VITALS: BP 128/84; PULSE 82; RESP 18; TEMP 36.9; O2SAT 100; BMI 33.0
--- NOTE | 2025-01-23 14:20 | ED.GENADULT ---
HPI - General Adult General Chief complaint: Abdominal Pain Stated complaint: bloody stool, vomiting Time Seen by Provider: 01/23/25 17:28 Source: patient, RN notes reviewed and old records reviewed Mode of arrival: ambulatory Limitations: no limitations History of Present Illness ED Provider: SERENE SUTTON PA-C HPI narrative: 44 year old female with pmhx significant for HTN, asthma/COPD, anxiety, depression, diverticulitis presents to the ED today for evaluation of nausea, vomiting and bloody stools x4 days. She has been tolerating PO at home. She reports history of diverticulitis and states this feels similar. Not on anticoagulation. Admits to right lower quadrant abdominal pain began today. No radiation. She has been taking Tylenol without improvement. Denies any urinary symptoms, flank pain, vaginal discharge. Reports hx of ovarian cysts. No recent travel outside the [place] No known sick contacts. Pertinent surgical history includes and umbilical hernia repair. Denies fever, chills, fatigue, dizziness, diarrhea, constipation. Related Data Previous Rx's ?Medication ?Instructions ?Recorded budesonide-formoterol HFA 160 1 puff inhalation BID 30 days 09/23/24 mcg-4.5 mcg/actuation aerosol #10.2 grams inhaler (Symbicort) sertraline 100 mg tablet 100 mg PO DAILY 90 days #90 tabs 09/24/24 metoprolol succinate 25 mg 25 mg PO DAILY #90 tabs 12/06/24 tablet,extended release 24 hr ferrous sulfate 325 mg (65 mg 325 mg PO DAILY 90 days #90 tabs 12/10/24 iron) tablet pantoprazole 40 mg tablet,delayed 40 mg PO DAILY #90 tabs 12/10/24 release atomoxetine 40 mg capsule 80 mg (2 x 40 mg) PO DAILY 90 days 12/12/24 (Strattera) #180 caps pregabalin 300 mg capsule 300 mg PO BID 90 days #180 caps 12/19/24 buprenorphine 8 mg-naloxone 2 mg 1 film sublingual DAILY #30 ea 01/10/25 sublingual film (Suboxone) lisinopril 10 mg tablet 10 mg PO DAILY #90 tabs 01/10/25 albuterol sulfate 90 mcg/actuation 2 puff inhalation Q4-6H PRN 01/23/25 aerosol inhaler (Ventolin HFA) shortness of breath or wheezing 30 days #8.5 grams morphine 15 mg immediate release 15 mg PO Q8H PRN pain (scale score 01/23/25 tablet 4-6) #3 tabs ondansetron 4 mg disintegrating 4 mg PO DAILY PRN nausea and 01/23/25 tablet vomiting 5 days #7 tabs Allergies Allergy/AdvReac Type Severity Reaction Status Date / Time No Known Allergies Allergy Verified 01/23/25 13:34 Review of Systems Review of Systems: Constitutional: No fever, chills, fatigue, night sweats, weight changes ENT/Mouth: No ear pain, hearing loss, nasal congestion, sinus pain, rhinorrhea, sore throat Eyes: No eye pain, swelling, redness, vision changes, discharge Cardio: No chest pain, palpitations, MIRANDA, orthopnea, peripheral edema Pulm: No SOB, cough, sputum, wheezing, dyspnea, hemoptysis GI: No hematemesis, diarrhea, constipation, hematochezia, melena, +abd pain, +hematochezia, +nausea, +vomiting : No irregular bleeding, dysuria, frequency, urgency, hesitancy, hematuria, flank pain, urinary flow changes, urinary incontinence or retention MSK: No back pain, neck pain, joint pain, myalgias Skin: No lesions, rashes Neuro: No weakness, numbness, paresthesias, LOC, dizziness, headache Psych: No anxiety/panic, depression, SI/HI, AH/VH All other systems reviewed and are negative. [facility] Past Medical History Attestation statement: The following information was validated with the patient. Source: old records reviewed and nursing notes reviewed Medical History Abnormal menstrual periods Obesity (BMI 30.0-34.9) HTN (hypertension) Asthma Bronchitis Surgical History History of section History of hernia repair Family History Family History Father No problems noted. Mother Asthma Brother No problems noted. Brother No problems noted. Sister No problems noted. Sister Breast cancer Daughter No problems noted. Social History [facility] Alcohol intake: never Patient Tobacco Use Status: Current everyday Tobacco user Cigarettes Per Day: 12 Years Smoked: 6 e-Cigarette/Vaping Use: Never Used Advance Directives: No Advance Directives Information Provided: Yes Do you have a plan to hurt others: No Plan service: No Current occupational status: employed Current occupational exposures/hazards: No Cognitive needs: No Hearing needs: No Vision needs: No Physical Exam ED Vital Signs: Vital Signs - 24 hr 01/23/25 13:30 01/23/25 18:50 01/23/25 20:14 Temperature 98.4 F 98.2 F 98.2 F Pulse Rate 82 65 65 Respiratory Rate 18 16 16 Blood Pressure 128/84 141/85 H 141/85 H Pulse Oximetry 100 96 96 Oxygen Delivery Method Room Air Room Air Room Air BMI result Body Mass Index 33.0 vital signs stable, afebrile General: Well appearing, in no acute distress. Skin: Warm, dry, intact. No rashes or lesions. Head: Normocephalic, atraumatic. EENT: Hearing is intact b/l. Conjunctiva clear. PERRLA. EOM intact. Moist mucous membranes.? Neck: Supple without LAD Cardiac: Chest wall symmetric. RRR Lungs: Normal respiratory effort without accessory muscle use. CTA bilaterally. No rales, rhonchi, or wheezes.? Abdomen: soft, non-distended, ttp of RLQ. No rebound tenderness or guarding. Positive BS x4. 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 Declined. on claudia, multiple external hemorrhoids noted, no evidence of thrombosis. No active bleeding. No palpable internal hemorrhoids. Palpable soft stool in rectal vault, normal in color. No spike blood. no melena. : pelvic exam deferred. Ext: Upper and lower extremities atraumatic, without tenderness, deformity, swelling or erythema Neuro: AOx3. Normal speech. Ambulating with steady gait. Course Course Course Narrative: RME: 44-year-old female presents to the ED for abdominal pain, with blood in stool for the past 4 days and nausea and vomiting. Patient states history of diverticulitis. Labs ordered Reevaluation(s) Reevaluation #1: 7216 -- CBC without leukocytosis or left shift. H&H stable. Chemistry without acute electrolyte abnormality requiring intervention. No ELVIA. Half liver function WNL. Beta HCG undetectable. Not . Urine without infection. Urine negative. CT abdomen/pelvis showing mild diverticulosis without evidence of diverticulitis. Appendix WNL. No evidence of bowel obstruction or abscess. Scan essentially unremarkable. > incidental finding of right adnexal cyst. Given patient's pain is primarily to right lower abdomen, will obtain pelvic/transvaginal ultrasound with Doppler to further characterize cyst. Patient was agreeable to this. > medicated with morphine for pain and Zofran for nausea 1950 -- pelvic ultrasound showing 2.3 x 1.6 x 1.8 cm cyst to right ovary with normal venous/arterial flow. No concern for torsion. On re-evaluation, patient reports improvement in pain. she states she feels relieved about unremarkable workup. This time, etiology of pain is uncertain. She may just have a GI bug. Plan to send Zofran to pharmacy for her nausea. Advised Imodium/Pepto-Bismol as needed if she develops diarrhea. Hematochezia likely secondary to diverticulosis. I do not have concern for acute GI bleeding. H&H is stable. I do not feel as though she needs a CT with contrast at this time. she tells me her pcp has referred her to a GI specialist for colonoscopy. This appointment is coming up. I advised her to keep this follow up appointment. Patient has remained stable throughout ED visit today. Discussed worrisome signs and symptoms and when to return to the ED. All questions answered at this time. Patient is agreeable with disposition and stable for discharge. Medications Administered Discontinued Medications Generic Name Dose Route Start Last Admin Trade Name Gladys PRN Reason Stop Dose Admin Morphine Sulfate 4 mg 01/23/25 18:07 01/23/25 18:25 Morphine Sulfate 4 Mg/Ml Cartridge IVPUSH 01/23/25 18:08 4 mg ONCE ONE Administration Protocol Morphine Sulfate 2 mg 01/23/25 19:40 01/23/25 19:59 Morphine Sulfate 2 Mg/Ml Cartridge IVPUSH 01/23/25 19:41 2 mg ONCE ONE Administration Protocol Ondansetron HCl 4 mg 01/23/25 18:07 01/23/25 18:25 Ondansetron Hcl 4 Mg/2 Ml Vial IVPUSH 01/23/25 18:08 4 mg ONCE ONE Administration Ondansetron HCl 4 mg 01/23/25 19:40 01/23/25 19:59 Ondansetron Hcl 4 Mg/2 Ml Vial IVPUSH 01/23/25 19:41 4 mg ONCE ONE Administration Medical Decision Making Medical Decision Making [facility] Narrative: 44 year old female with pmhx significant for HTN, asthma/COPD, anxiety, depression, diverticulitis presents to the ED today for evaluation of nausea, vomiting and bloody stools x4 days. Hypertensive, vitals otherwise WNL. Afebrile. She is nontoxic-appearing and in no acute distress. On exam, abdomen is soft, non-distended, ttp of RLQ. No rebound tenderness or guarding. Positive BS x4. on CLAUDIA there are multiple external hemorrhoids noted, no evidence of thrombosis. No active bleeding. No palpable internal hemorrhoids. Palpable soft stool in rectal vault, normal in color. No spike blood. no melena. pelvic exam deferred. Differential diagnoses: appendicitis, diverticulitis, diverticulosis, UTI, IUP, gastroenteritis Abdominal exam without peritoneal signs. No evidence of acute abdomen at this time. Well appearing. Low suspicion for acute hepatobiliary disease (including acute cholecystitis), acute infectious processes (pneumonia, hepatitis, pyelonephritis, PID, TOA), vascular catastrophe, bowel obstruction or viscus perforation, ovarian cyst/ rupture/ torsion, ectopic. Presentation not consistent with other acute, emergent causes of abdominal pain at this time. Plan: labs, UA, imaging, pain control, serial reassessment Plan for Differential Diagnosis Differential Diagnoses: The differential diagnosis associated with the presentation includes as above. Admission/Observation not indicated. Lab Data [facility] Lab Attestation statement: I reviewed the patient's lab results. as above. 01/23/25 15:03 01/23/25 15:03 Labs: Lab Results 01/23/25 01/23/25 01/23/25 Range/Units 15:03 17:55 18:19 WBC 9.9 (4.8-10.8) X10*3/uL RBC 4.12 L (4.20-5.50) X10*6/uL Hgb 13.7 (12.0-16.0) g/dl Hct 38.8 (37.0-47.0) % MCV 94.2 (80.0-98.0) fL MCH 33.3 H (27.0-33.0) pg MCHC 35.3 H (31.0-35.0) g/dl RDW 12.7 (11.0-16.0) % Plt Count 212 (160-400) X10*3/uL MPV 11.8 (9.4-12.3) fL Immature Gran % (Auto) 0.4 (0.0-0.4) % Neut % (Auto) 54.2 (45-73) % Lymph % (Auto) 29.5 (20-40) % Sherman % (Auto) 7.3 (2-11) % Eos % (Auto) 7.6 H (0-4) % Baso % (Auto) 1.0 (0-2) % Lymph # (Auto) 2.9 (1.2-4.9) X10*3/uL Sherman # (Auto) 0.7 (0.1-1.2) X10*3/uL Eos # (Auto) 0.8 H (0.0-0.4) X10*3/uL Baso # (Auto) 0.1 (0.0-0.2) X10*3/uL Abs Immat Gran (auto) 0.04 H (0.00-0.03) X10*3/uL Absolute Neuts (auto) 5.4 (2.0-8.3) x10*3/uL Absolute Nucleated RBC 0.000 (0.0-0.012) X10*3/uL Nucleated RBC % (auto) 0.0 (0.0-0.2) /100WBC PT 11.7 (10.9-12.4) SEC INR 1.0 (0.9-1.1) APTT 34.7 (26.0-36.8) SEC Sodium 137 (135-145) mmol/L Potassium 4.4 (3.3-5.1) mmol/L Chloride 105 (96-108) mmol/L Carbon Dioxide 22 (22-29) mmol/L Anion Gap 14 (12-20) BUN 11 (9-16) mg/dL Creatinine 0.76 (0.5-1.4) mg/dL Estim Creat Clear Calc 108.3 Estimated GFR > 60 Random Glucose 86 (60-115) mg/dL Calcium 9.7 D (8.4-10.2) mg/dL Total Bilirubin 0.3 (0.0-1.0) mg/dL AST 23 (5-31) U/L ALT 17 (0-31) U/L Alkaline Phosphatase 55 (39-117) U/L Total Protein 8.4 H (6.5-8.0) g/dL Albumin 4.6 (3.5-5.0) g/dL Beta HCG, Quant < 2 mIU/mL Urine Color Yellow Urine Appearance Clear Urine pH 7.0 (5.0-9.0) Ur Specific [place] <= 1.005 (1.005-1.025) Urine Protein Negative (Neg-Trace) mg/dL Urine Glucose (UA) Negative (Negative) mg/dL Urine Ketones Negative (Negative) mg/dL Urine Blood Negative (Negative) Urine Nitrite Negative (Negative) Ur Leukocyte Esterase Trace H (Negative) Urine RBC 0-2 (0-2) /HPF Urine WBC 0-5 (0-5) /HPF Ur Squamous Epith Cells 0-2 (0-2) /HPF Urine Bacteria None Seen (None Seen) Hyaline Casts 0-2 (0-2) /LPF Urine Test NEGATIVE (NEGATIVE) Independent Interpretation I performed an independent interpretation of an: Ultrasound and CT Scan Interpretation: CT a/p without bowel wall thickening, no obstruction Pelvic ultrasound showing cyst to right ovary, good Doppler flow. Radiology Impression Discussion of test interpretation with radiology: I have reviewed the radiologist's reading. Radiologist Impression: Procedure(s): US pelvic ovarian doppler Accession Number(s): [id number] cc: Ashu Whitt MD; Serene Sutton~ CLINICAL HISTORY: RLQ pain, vomiting, cyst on CT confirm flow US pelvis transabdominal and transvaginal with Doppler Comparison: None Findings: Transabdominal scanning performed for overall anatomy. Transvaginal scanning performed for additional detail. Anteverted uterus is 11.8 cm length. Normal myometrium. Endometrium 14 mm thickness. Right ovary 3.2 x 2.6 x 2.1 cm. There is a thin-walled 2.3 x 1.6 x 1.8 cm cyst, almost certainly benign. Left ovary notvisualized. Normal color Doppler with arterial/venous spectral tracing of right ovary. No free fluid. IMPRESSION: 1. Almost certainly benign right ovarian cyst. 2. Otherwise unremarkable exam This document has been electronically signed by: Franco Reed MD on 01/23/2025 19:09:34 Procedure(s): CT abdomen pelvis wo IV con Accession Number(s): [id number] cc: Mani Stephen; Ashu Whitt MD~ Report Number: [id number]: Total DLP = 653.00 mGy-cm CLINICAL HISTORY: Lower abdominal pain. Blood in stool. Colitis? CT abdomen and pelvis without contrast Comparison: None Findings: The lung bases are clear. The unenhanced liver, gallbladder, spleen, adrenal glands and pancreas are unremarkable. Kidneys, ureters and bladder are within normal limits. Uterus and adnexa demonstrate no suspicious abnormality. Right adnexal cyst noted. Mild diverticulosis. No evidence of diverticulitis. Normal appendix. No bowel obstruction, free air, free fluid or abscess. No acute osseous finding. Impression: No acute process. Minimal diverticulosis without evidence of diverticulitis. This document has been electronically signed by: Gregorio Costello MD on 01/23/2025 17:46:12 External Record Review External record reviewed: Inpatient record Prescription Management I considered prescription management with: Pain Medication and Other (zofran) Social Determinants Patient?s care significantly limited by Social Determinants of Health including: Other Social Determinant of Health Critical Care Time Critical Care Time Critical Care Time: No Discharge Plan Discharge Clinical Impression: Cyst of right ovary Patient Disposition: Home, Self-Care Instructions: Ovarian Cyst (ED) Additional Instructions: Your blood work today is reassuring. Your urine does not demonstrate infection or . The CT scan of your abdomen shows mild diverticulosis without evidence of acute diverticulitis. This is likely the cause of the blood in your stool. Your pelvic ultrasound shows a small cyst to your right ovary. There is good blood flow to the ovary. The etiology of your symptoms is unclear at this time. You may just have a viral GI bug. Treatment for this is symptomatic. I have sent and Zofran to your pharmacy for nausea. If you develop diarrhea, you may trial OTC pepto bismol or imodium. Take tylenol as needed for pain. I have sent a few tablets of morphine to your pharmacy for any break through pain. this is an addictive pain medication. use this with caution. As discussed, please follow-up with your GI doctor. Return with new or worsening symptoms. In the case of an emergency call 911. Prescriptions: New morphine 15 mg tablet 15 mg PO Q8H PRN (Reason: pain (scale score 4-6)) Qty: 3 0RF Rx Instructions: Partial Fill upon patient request. ondansetron 4 mg tablet,disintegrating 4 mg PO DAILY PRN (Reason: nausea and vomiting) 5 Days Qty: 7 0RF No Action budesonide-formoterol [Symbicort] 160-4.5 mcg/actuation HFA aerosol inhaler 1 puff inhalation BID 30 Days Qty: 10.2 3RF sertraline 100 mg tablet 100 mg PO DAILY 90 Days Qty: 90 2RF metoprolol succinate 25 mg tablet extended release 24 hr 25 mg PO DAILY Qty: 90 0RF ferrous sulfate 325 mg (65 mg iron) tablet 325 mg PO DAILY 90 Days Qty: 90 0RF pantoprazole 40 mg tablet,delayed release (DR/EC) 40 mg PO DAILY Qty: 90 0RF pregabalin 300 mg capsule 300 mg PO BID 90 Days Qty: 180 0RF lisinopril 10 mg tablet 10 mg PO DAILY Qty: 90 0RF buprenorphine-naloxone [Suboxone] 8-2 mg film 1 film sublingual DAILY Qty: 30 1RF albuterol sulfate [Ventolin HFA] 90 mcg/actuation HFA aerosol inhaler 2 puff inhalation Q4-6H PRN (Reason: shortness of breath or wheezing) 30 Days Qty: 8.5 3RF atomoxetine [Strattera] 40 mg capsule 80 mg PO DAILY 90 Days Qty: 180 1RF Referrals: [facility] [Provider Group] Ashu Whitt MD [Primary Care Provider] - Interventions: ED Discharge Assessment Last Done: 01/23/25 20:14 Discharge Date/Time: 01/23/25 20:15 Print Language: Icelandic
[2025-01-23 15:11] LABS: MANUAL DIFF FLAG NO
[2025-01-23 15:13] LABS: Basophils Absolute Auto 0.1 X10*3/uL (0.0-0.2); Eosinophils Absolute Auto 0.8 X10*3/uL (0.0-0.4); Eosinophils Percent Auto 7.6 % (0-4); Hematocrit 38.8 % (37.0-47.0); Hemoglobin 13.7 g/dl (12.0-16.0); Imm Gran Abs Auto 0.04 X10*3/uL (0.00-0.03); Imm Gran Pct Auto 0.4 % (0.0-0.4); Lymphocytes Absolute Auto 2.9 X10*3/uL (1.2-4.9); Lymphocytes Percent Auto 29.5 % (20-40); Mean Corpuscular HGB Conc 35.3 g/dl (31.0-35.0); Mean Corpuscular Hemoglobin 33.3 pg (27.0-33.0); Mean Corpuscular Volume 94.2 fL (80.0-98.0); Mean Platelet Volume 11.8 fL (9.4-12.3); Monocytes Absolute Auto 0.7 X10*3/uL (0.1-1.2); Monocytes Percent Auto 7.3 % (2-11); Neutrophils Absolute Auto 5.4 x10*3/uL (2.0-8.3); Neutrophils Percent Auto 54.2 % (45-73); Platelet Count 212 X10*3/uL (160-400); Red Blood Count 4.12 X10*6/uL (4.20-5.50); Red Cell Distribution Width 12.7 % (11.0-16.0); White Blood Count 9.9 X10*3/uL (4.8-10.8)
[2025-01-23 15:35] LABS: Alanine Aminotransferase 17 U/L (0-31); Albumin Level 4.6 g/dL (3.5-5.0); Anion Gap 14 (12-20); Aspartate Amino Transferase 23 U/L (5-31); Bilirubin Total 0.3 mg/dL (0.0-1.0); Blood Urea Nitrogen 11 mg/dL (9-16); Calcium 9.7 mg/dL (8.4-10.2); Carbon Dioxide 22 mmol/L (22-29); Chloride 105 mmol/L (96-108); Creatinine Clr Calc Pharmacy 108.3; Estimated Glomerular Filt Rate > 60; Glucose Random 86 mg/dL (60-115); Potassium 4.4 mmol/L (3.3-5.1); Sodium 137 mmol/L (135-145); Total Protein 8.4 g/dL (6.5-8.0)
[2025-01-23 15:37] LABS: HCG Quantitative < 2 mIU/mL
[2025-01-23 16:00] LABS: Alkaline Phosphatase 55 U/L (39-117)
[2025-01-23 18:10] LABS: Prothrombin Time 11.7 SEC (10.9-12.4)
[2025-01-23 18:13] LABS: Partial Thromboplastin Time 34.7 SEC (26.0-36.8)
[2025-01-23] MEDS: ondansetron HCL 4 MG/2 ML VIAL IVPUSH ×2 (18:25→19:59)
[2025-01-23] MEDS: Morphine Sulfate 4 MG/ML CARTRIDGE IVPUSH (18:25)
[2025-01-23 18:30] LABS: Appearance Urine Clear; Color Urine Yellow; Glucose Urine UA Negative (Negative); Leukocyte Esterase Urine Trace (Negative); Nitrite Urine Negative (Negative); Specific Gravity - Urine <= 1.005 (1.005-1.025); UMIC TRIGGER UACC YES; Urine Blood Negative (Negative); Urine Ketones Negative (Negative); Urine Protein Negative (Neg-Trace)
[2025-01-23 18:31] LABS: UPreg QC Valid YES; Urine Pregnancy NEGATIVE (NEGATIVE)
[2025-01-23 18:42] LABS: Bacteria Urine None Seen (None Seen); Hyaline Casts Urine 0-2 /LPF (0-2); RBC Urine 0-2 /HPF (0-2); Squamous Epithelial Cell Urine 0-2 /HPF (0-2); WBC Urine 0-5 /HPF (0-5)
[2025-01-23 18:50] VITALS: BP 141/85; PULSE 65; RESP 16; TEMP 36.8; O2SAT 96
[2025-01-23] MEDS: Morphine Sulfate 2 MG/ML CARTRIDGE IVPUSH (19:59)
[2025-01-23 20:14] VITALS: BP 141/85; PULSE 65; RESP 16; TEMP 36.8; O2SAT 96
== END 2025-01-23 20:15 | disposition home or self-care (01) ==
PROVIDERS: Physician Assistant; Emergency Provider Student in an Organized Health Care Education/Training Program; PCP Family Medicine
DX: N83.201 Unspecified ovarian cyst, right side (principal); R10.31 Right lower quadrant pain; R11.2 Nausea with vomiting, unspecified; I10 Essential (primary) hypertension; J45.909 Unspecified asthma, uncomplicated; F17.210 Nicotine dependence, cigarettes, uncomplicated
CPT/HCPCS: 36415; 74176; 76830; 76856; 80053; 81001; 81025; 84702; 85025; 85610; 85730; 93975; 96374; 96375; 96376; 99283; 99284; J2270; J2405

== ENCOUNTER → 2025-01-23 15:49 | Outpatient (BNV) | payer OTHER, SELFPAY | PROVIDERS: Emergency Provider Student in an Organized Health Care Education/Training Program; PCP Family Medicine; Visit Provider Radiology Vascular & Interventional Radiology | DX: K57.30 Diverticulosis of large intestine without perforation or abscess without bleeding (principal) | CPT/HCPCS: 74176; 93975 ==

== ENCOUNTER 2025-01-27 10:04 | Outpatient (AMB) | payer OTHER, SELFPAY ==
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
[2025-01-27 10:10] VITALS: BP 140/75; PULSE 96; RESP 16; TEMP 37.1; O2SAT 100; BMI 34.5
[2025-01-27 10:39] VITALS: BP 140/90
== END 2025-01-27 12:56 | disposition home or self-care (01) ==
PROVIDERS: PCP Family Medicine; Visit Provider Nurse Practitioner Family
DX: K92.1 Melena (principal); R10.9 Unspecified abdominal pain; F41.9 Anxiety disorder, unspecified; F32.9 Major depressive disorder, single episode, unspecified; F43.21 Adjustment disorder with depressed mood

== ENCOUNTER → 2025-01-27 10:04 | Outpatient (BNVA) | payer OTHER, SELFPAY | PROVIDERS: PCP Family Medicine; Visit Provider Nurse Practitioner Family | DX: K92.1 Melena (principal); R10.9 Unspecified abdominal pain; F41.9 Anxiety disorder, unspecified; F32.9 Major depressive disorder, single episode, unspecified; F43.21 Adjustment disorder with depressed mood | CPT/HCPCS: 96127; 99212 ==

== ENCOUNTER 2025-02-03 11:04 | Outpatient (AMB) | payer OTHER, SELFPAY ==
--- NOTE | 2025-02-03 11:05 | MHC.OFFVIS ---
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: No It Consulting Director: It Consulting Director offered & declined Accompanied by: Spouse Allergies No Known Allergies Allergy (Verified 02/03/25 11:22) Medication List - Last Reconciled 02/03/25 by Guillermina Grimaldo LPN albuterol sulfate 90 mcg/actuation (Ventolin HFA) 2 puffs inhalation Q4-6H PRN 30 days atomoxetine (Strattera) 80 mg (2 x 40 mg) PO DAILY 90 days budesonide-formoterol 160-4.5 mcg/actuation (Symbicort) 1 puff inhalation BID 30 days buprenorphine-naloxone 8-2 mg (Suboxone) 1 film sublingual DAILY ferrous sulfate 325 mg PO DAILY 90 days lisinopril 10 mg PO DAILY metoprolol succinate ER 25 mg PO DAILY ondansetron 4 mg PO DAILY PRN 5 days pantoprazole 40 mg PO DAILY pregabalin 300 mg PO BID 90 days sertraline 100 mg PO DAILY 90 days HPI HPI cough: Details: Debra is a pleasant 44 year old female, current smoker, with approximately 10 pyh with underlying asthma and HTN. She continues with suboptimal effect using symbicort 160 mcg and albuterol MDI 3-4 times per day. Since the fall patient has been on multiple antibiotics with minimal relief. At the last visit, she was given Augmentin and prednisone with significant improvement, noting 75% relief of cough, dyspnea and wheezing. Unfortunately she states symptoms returned over the last few weeks with continued productive cough with yellow sputum, feeling feverish, wheezing and dyspnea. [facility] Medical History Abnormal menstrual periods Obesity (BMI 30.0-34.9) HTN (hypertension) Asthma Bronchitis Surgical History History of section History of hernia repair Family History Father No problems noted. Mother Asthma Brother No problems noted. Brother No problems noted. Sister No problems noted. Sister Breast cancer Daughter No problems noted. Social History (Updated 02/03/25 @ 11:24 by Guillermina Grimaldo LPN) Housing: Condominium Alcohol intake: never Patient Tobacco Use Status: Current everyday Tobacco user Cigarettes Per Day: 8 Years Smoked: 6 e-Cigarette/Vaping Use: Never Used service: No Current occupational status: employed Current occupational exposures/hazards: No Cognitive needs: No Hearing needs: No Vision needs: No Female Reproductive History Menstrual Age of Menarche: 15 Review of Systems Const Denies chills, Denies excessive sweating, Denies fever(s), Denies headache(s) and Denies night sweats Eyes Denies dry eyes, Denies irritation and Denies itchy eyes ENT Reports Normal hearing present and Denies headache(s) Card Denies chest pain, Denies chest pain at rest, Denies chest pain with activity, Denies claudication, Denies leg edema, Reports dyspnea on exertion, Denies orthopnea and Denies paroxysmal nocturnal dyspnea Resp Reports change in phlegm color, Reports chest congestion, Reports cough, Denies hemoptysis, Denies excessive phlegm production, Denies pain on inspiration, Denies pain with cough, Reports dyspnea on exertion, Denies stridor and Reports wheezing Musc Denies myalgias Neuro Reports Normal hearing present and Denies headache(s) Endo Denies excessive sweating Hollis/Lymph Denies lymphadenopathy Aller/Immun Denies itchy eyes, Denies seasonal rhinorrhea and Reports wheezing Physical Exam Vital Signs: Last Vital Signs Pulse 85 02/03/25 11:15 BP 132/70 02/03/25 11:15 Pulse Ox 98 02/03/25 11:15 Oxygen Delivery Method Room Air 02/03/25 11:15 BMI result Body Mass Index 34.0 Const General: cooperative, healthy appearing, no acute distress, well developed and alert Orientation/consciousness: patient oriented x3 Limitations: no limitations HEENT Head: Yes normal to inspection, Yes normocephalic and Yes atraumatic Ears: hearing grossly normal bilaterally and external ears normal Eyes General: appearance normal, both eyes and all related structures Eyelids: Yes eyelids normal Sclerae: sclerae normal EOM: EOMs intact bilaterally Neck Neck: Yes normal visual inspection and Yes no lymphadenopathy Lymphatic: no lymphadenopathy noted Chest Chest palpation & inspection: normal inspection of the chest Resp Effort & Inspection: normal respiratory effort, able to speak in complete sentences, no audible wheezes, Actively coughing Quality: wet, no stridor, not tachypneic, no tripod positioning and no use of accessory muscles Auscultation: no crackles, rhonchi throughout and wheezes expiratory wheezes and throughout Cardio Jugular venous distension: no JVD Rate: regular rate Rhythm: regular rhythm Skin Other: warm, dry General skin exam: no rashes or lesions noted Neuro General: patient oriented x3 Cranial nerves: Yes Normal hearing present Cognition (Neuro): normal cognition Gait exam (Neuro): Normal gait present Extrem General: Yes normal to inspection, Yes capillary refill normal, Yes no clubbing, cyanosis or edema and Yes no pedal edema Psych Appearance: grossly normal and well kempt Speech and movement: Normal speech and movement present and Clear speech present Affect: normal affect Attitude: cooperative Thought process: Normal thought process present Thought content: Normal thought content present Insight: Good insight present (Psych) Judgement: Good judgement present (Psych) Office Procedures Nebulizer Treatment Nebulizer Treatment 62810-Cyygwedco/MDI RX initial, or Nebulizer Subsequent Treatment Office Meds ipratropium 0.5 mg-albuterol 3 mg (2.5 mg base)/3 mL nebulization soln Performing Provider: Ivis White NP Performing Location: [facility] Administered by: Guillermina Grimaldo LPN on 02/03/25 11:43 Dose Route Admin Location Dispensed Lot Number Expiration Date [facility] [place] [employer] 3 mL inhalation 3 mL [id number] 09/26/26 [id number] [place] Trevor Assessment & Plan Assessment & Plan (1) Asthma: Code(s): J45.909 - Unspecified asthma, uncomplicated Category: Medical (2) Smoker: Code(s): F17.200 - Nicotine dependence, unspecified, uncomplicated Category: Social Hx (3) Cough: Code(s): R05.9 - Cough, unspecified Category: Medical (4) Eosinophilia: Code(s): D72.10 - Eosinophilia, unspecified Category: Medical Plan Debra presents with recurrence of bronchitic symptoms in addition to wheezing, will treat with Augmentin and Prednisone. DuoNeb given in office with moderate improvements, nebulizer for home use given in office today. DuoNeb sent to pharmacy. We discussed singulair however patient currently grieving loss of brother and would like to avoid at this time. Will trial Zyrtec. Will also switch Symbicort to Trelegy. Unfortunately patient had to reschedule chest CT, awaiting this to be performed. All questions were answered and patient is in agreement of plan. Will follow up in 2-4 weeks or sooner if needed. Orders: Orders AMB Nebulizer Treatment Today J45.909 - Unspecified asthma, uncomplicated Medications: New tlgkhcwuuqs-zqghcifzn-enihtqji 200-62.5-25 mcg (Trelegy Ellipta) 1 inh inhalation DAILY 60 ea 3RF amoxicillin-pot clavulanate 875-125 mg 1 tab PO Q12H 20 tabs 0RF prednisone 40 mg (2 x 20 mg) PO DAILY 10 tabs 0RF ipratropium-albuterol 0.5 mg-3 mg(2.5 mg base)/3 mL 3 mL inhalation Q6H PRN 180 mL 3RF wheezing cetirizine (Zyrtec) 10 mg PO DAILY PRN 30 tabs 2RF allergy symptoms Coding Level of Care Code Est Pt Level 4 (90651) Diagnoses Asthma J45.909 Smoker F17.200 Cough R05.9 Eosinophilia D72.10 CPT Codes Nebulizer Treatment - Nebulizer Treatment, initial or subsequent: [id number]-[id number]/MDI RX initial, or Nebulizer Subsequent Treatment ([id number])
[2025-02-03 11:15] VITALS: BP 132/70; PULSE 85; O2SAT 98; BMI 34.0
== END 2025-02-03 14:31 | disposition home or self-care (01) ==
PROVIDERS: Visit Provider Nurse Practitioner Family
DX: J45.909 Unspecified asthma, uncomplicated (principal); F17.200 Nicotine dependence, unspecified, uncomplicated; R05.9 Cough, unspecified; D72.10 Eosinophilia, unspecified
CPT/HCPCS: 99214

== ENCOUNTER → 2025-02-03 11:04 | Outpatient (BNVA) | payer OTHER, SELFPAY | PROVIDERS: Visit Provider Nurse Practitioner Family | DX: J45.909 Unspecified asthma, uncomplicated (principal); R05.9 Cough, unspecified; D72.10 Eosinophilia, unspecified; F17.210 Nicotine dependence, cigarettes, uncomplicated | CPT/HCPCS: 94640; 99212 ==

== ENCOUNTER 2025-02-05 10:22 | Outpatient (AMB) | payer OTHER, SELFPAY ==
[2025-02-05 10:31] VITALS: BP 140/90
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
== END 2025-02-05 11:10 | disposition home or self-care (01) ==
LOC: HO.HCC 10:23
PROVIDERS: PCP Family Medicine; Visit Provider Nurse Practitioner Psychiatric/Mental Health
DX: F11.91 Opioid use, unspecified, in remission (principal)
CPT/HCPCS: 99213

== ENCOUNTER → 2025-02-05 10:22 | Outpatient (BNVA) | payer OTHER, SELFPAY | PROVIDERS: PCP Family Medicine; Visit Provider Nurse Practitioner Psychiatric/Mental Health | DX: F11.91 Opioid use, unspecified, in remission (principal) | CPT/HCPCS: 99212 ==

== ENCOUNTER 2025-05-05 10:35 | Outpatient (AMB) | payer OTHER, SELFPAY ==
--- NOTE | 2025-05-05 10:37 | A.OFFVIS_ITS ---
Vital Signs 05/05/25 10:41 Height 5 ft 6 in Weight 225 lb BMI 36.3 Pulse 79 Pulse Source Pulse Oximeter Pulse Oximetry (%) 96 Oxygen Delivery Method Room Air Intake Visit Reasons: MAT Allergies No Known Allergies Allergy (Verified 05/05/25 10:42) HPI HPI MAT: Details: She has been doing well. She has been looking for provider with behavioral health expertise as well. She takes daily suboxone 8/2 daily and is not due until end of month [facility] Medical History Abnormal menstrual periods Obesity (BMI 30.0-34.9) HTN (hypertension) Asthma Bronchitis Surgical History History of section History of hernia repair Family History Father No problems noted. Mother Asthma Brother No problems noted. Brother No problems noted. Sister No problems noted. Sister Breast cancer Daughter No problems noted. Social History (Updated 02/03/25 @ 11:24 by Guillermina Grimaldo LPN) Housing: Condominium Alcohol intake: never Patient Tobacco Use Status: Current everyday Tobacco user Cigarettes Per Day: 8 Years Smoked: 6 e-Cigarette/Vaping Use: Never Used service: No Current occupational status: employed Current occupational exposures/hazards: No Cognitive needs: No Hearing needs: No Vision needs: No Female Reproductive History Menstrual Age of Menarche: 15 Review of Systems Const All systems reviewed & are unremarkable except as noted in HPI and below Physical Exam Vital Signs: Last Vital Signs Pulse 79 05/05/25 10:41 Pulse Ox 96 05/05/25 10:41 Oxygen Delivery Method Room Air 05/05/25 10:41 BMI result Body Mass Index 36.3 Const General: cooperative Assessment & Plan Assessment & Plan (1) Opioid use disorder in remission: Comment: She is doing well Code(s): F11.91 - Opioid use, unspecified, in remission Category: Medical Plan: Continue Suboxone daily. Wishes to meet with Ashia Webber NP at next visit. Coding Level of Care Code Est Pt Level 3 (68505) Diagnoses Opioid use disorder in remission F11.91
[2025-05-05 10:41] VITALS: PULSE 79; O2SAT 96; BMI 36.3
== END 2025-05-05 11:02 | disposition home or self-care (01) ==
LOC: HO.HID 10:35
PROVIDERS: PCP Family Medicine; Visit Provider Internal Medicine
DX: F11.91 Opioid use, unspecified, in remission (principal)
CPT/HCPCS: 99213

== ENCOUNTER → 2025-05-05 10:35 | Outpatient (BNVA) | payer OTHER, SELFPAY | PROVIDERS: PCP Family Medicine; Visit Provider Internal Medicine | DX: F11.21 Opioid dependence, in remission (principal); Z79.899 Other long term (current) drug therapy | CPT/HCPCS: 99212 ==

== ENCOUNTER → 2025-05-28 09:46 | Outpatient (AMB) | payer OTHER, SELFPAY ==
--- NOTE | 2025-05-28 09:43 | MHC.PC.OV ---
Intake Visit Reasons: medication review Intake Note: Medication review Gore Maker Required: No Allergies No Known Allergies Allergy (Verified 05/28/25 09:44) Medication List - Last Reconciled 05/28/25 by Aniyah Nath PA-C albuterol sulfate 90 mcg/actuation (Ventolin HFA) 2 puffs inhalation Q4-6H PRN 30 days atomoxetine (Strattera) 80 mg (2 x 40 mg) PO DAILY 90 days budesonide-formoterol 160-4.5 mcg/actuation (Symbicort) 1 puff inhalation BID 30 days buprenorphine-naloxone 8-2 mg (Suboxone) 1 film buccal DAILY 30 days cetirizine (Zyrtec) 10 mg PO DAILY PRN ferrous sulfate 325 mg PO DAILY 90 days fluconazole 150 mg PO Q3D 2 doses ipratropium-albuterol 0.5 mg-3 mg(2.5 mg base)/3 mL 3 mL inhalation Q6H PRN lisinopril 10 mg PO DAILY metoprolol succinate ER 25 mg PO DAILY pantoprazole 40 mg PO DAILY pregabalin 300 mg PO BID 90 days sertraline 100 mg PO DAILY 90 days tiotropium bromide 2.5 mcg/actuation (Spiriva Respimat) 2 puffs inhalation DAILY Tobacco use date assessed: 05/28/25 Dental Screening Dental Screen Date: 01/27/25 HPI medication review HPI Details Patient is a 44-year-old female who presents today for a med follow up. She has a significant past medical history of anxiety, depression, ADHD, substance abuse, iron-deficiency anemia, GERD, hypertension and is here today to discuss her ADHD. Psych: States that her anxiety and depression is pretty well-controlled right now with the sertraline 100 mg. She is on 80 mg of strattera but does not feel as effective as she would like. She has been struggling at work and feels as if she does not processed things the right way. She is distracted and has a hard time with concentration. She has been referred to behavioral health and is not currently seeing anyone other than addiction Medicine. She thinks she should see a psychiatrist. CV: States that her blood pressures have been really well-controlled with the lisinopril 10 mg and the metoprolol 25 mg. She has been working on a low-fat diet and would like to avoid taking a statin. [facility] Medical History Abnormal menstrual periods Obesity (BMI 30.0-34.9) HTN (hypertension) Asthma Bronchitis Surgical History History of section History of hernia repair Family History Father No problems noted. Mother Asthma Brother No problems noted. Brother No problems noted. Sister No problems noted. Sister Breast cancer Daughter No problems noted. Social History (Updated 02/03/25 @ 11:24 by Guillermina Grimaldo LPN) Housing: Condominium Alcohol intake: never Patient Tobacco Use Status: Current everyday Tobacco user Cigarettes Per Day: 8 Years Smoked: 6 e-Cigarette/Vaping Use: Never Used service: No Current occupational status: employed Current occupational exposures/hazards: No Cognitive needs: No Hearing needs: No Vision needs: No Female Reproductive History Menstrual Age of Menarche: 15 Questionnaire Thrive Questionnaire Date Thrive assessed: 01/24/25 I am a: Patient What is your living situation today?: I have a steady place to live Within the past 12 months, did the food you bought not last and you didn't have the money to get more?: Never true Within the past 12 months, did you worry whether your food would run out before you got money to buy more?: Never true Do you have trouble paying for medicines?: No Do you have trouble getting transportation to medical appointments?: No Do you have trouble paying your heating and electricity bill?: No Do you have trouble taking care of your child, family member or friend?: No Do you have trouble with day-to-day activities such as bathing, preparing meals, shopping, managing finances, etc.?: Yes Are you currently unemployed and looking for a job?: No Are you interested in more education?: No Please select the resources that you would like help with: None Currently or been in a relationship where the following occur: No concerns reported THRIVE Score: 0 AUDIT C Alcohol Use Questionnaire (AUDIT-C) 3. How often do you have six or more drinks on one occasion?: Never Total Score: 0 RONNIE-7 AMB Questionnaire RONNIE-7 Date RONNIE - 7 assessed: 01/27/25 Source: Developed by Drs. Rod Mayer, Alona Carmen, Mushtaq Pino and colleagues, with an educational jose from [employer]. Physical exam (Primary Care) Tobacco/Smoking Status: Tobacco use Status Tobacco use date assessed 05/28/25 05/28/25 09:45 Patient Tobacco Use Status Current everyday Tobacco 05/28/25 09:45 Tobacco use type 12/26/23 09:57 e-Cigarette/Vaping Use Never Used 05/28/25 09:45 Thrive Assessment: Date of Thrive Assessment Date Thrive assessed 01/24/25 05/28/25 09:45 Currently or been in a relationship where the following occur: No concerns reported Telehealth Telehealth Telehealth Platform: Telephone Location of provider rendering services: practice address Location of patient: address on file Patient Identification confirmed using: Name, : No Telehealth method: voice only Patient verbally consented to treatment: Yes Patient verbally consented to billing insurance company: Yes Patient informed of any privacy concerns related to visit: Yes Minutes spent on Phone/Video with Pt.: 15 Coding Level of Care Code Tele Est Pt Level 2 (34553) Diagnoses Anxiety and depression F41.9; F32.9 Opioid use disorder in remission F11.91 Assessment & Plan Assessment & Plan (1) Anxiety and depression: Code(s): F41.9 - Anxiety disorder, unspecified; F32.9 - Major depressive disorder, single episode, unspecified Category: Medical Plan: Continue sertraline as she feels that this is very effective. Increase Strattera to 100 mg. Referral to the [facility]. Follow up in 3 months. (2) Opioid use disorder in remission: Comment: She is doing well Code(s): F11.91 - Opioid use, unspecified, in remission Category: Medical Plan: Stable. Orders: Referrals Psychiatry Referral F11.91 - Opioid use, unspecified, in remission, F32.9 - Major depressive disorder, single episode, unspecified, F41.9 - Anxiety disorder, unspecified, R41.840 - Attention and concentration deficit Medications: New atomoxetine (Strattera) 100 mg PO QAM 90 caps 0RF Discontinued atomoxetine (Strattera) Discontinued Reason: Doctor's Order 80 mg (2 x 40 mg) PO DAILY 90 days 180 caps 1RF
== END ==
LOC: HO.HMCFM 09:46
PROVIDERS: PCP Family Medicine; Visit Provider Physician Assistant
DX: F41.9 Anxiety disorder, unspecified (principal); F32.9 Major depressive disorder, single episode, unspecified; F11.91 Opioid use, unspecified, in remission

== ENCOUNTER 2025-06-27 16:42 | Outpatient (REF) | payer OTHER, SELFPAY ==
--- NOTE | ~2025-06-27 | CT_ITS ---
CLINICAL HISTORY: R05.9 - Cough, unspecified CT CHEST WITHOUT CONTRAST Comparison: None provided Findings: The heart size is normal. Normal caliber thoracic aorta. There is a borderline enlarged right precarinal lymph node that measures 1.7 x 1.1 cm. There is a borderline enlarged pericarinal lymph node that measures 1.8 x 1.0 cm. The thyroid gland appears unremarkable. Nonspecific mild gaseous distention of the esophagus. Small hiatal hernia. The trachea and major bronchi are patent. No consolidation, pleural effusion or pneumothorax. No pulmonary mass or suspicious pulmonary nodule. There is platelike atelectasis in the left upper lobe. The upper abdomen is unremarkable. The bones are intact. IMPRESSION: 1. No evidence for pneumonia or pulmonary mass. 2. Nonspecific mediastinal adenopathy. This document has been electronically signed by: Kasey Richardson DO on 06/27/2025 18:39:48
== END 2025-06-27 16:43 | disposition home or self-care (01) ==
LOC: HO.CT 16:42
PROVIDERS: PCP Family Medicine; Visit Provider Nurse Practitioner Family
DX: R05.9 Cough, unspecified (principal)
CPT/HCPCS: 71250

== ENCOUNTER → 2025-06-27 16:44 | Outpatient (BNV) | payer OTHER, SELFPAY | PROVIDERS: PCP Family Medicine; Visit Provider Radiology Diagnostic Radiology | DX: R05.9 Cough, unspecified (principal) | CPT/HCPCS: 71250 ==

== ENCOUNTER 2025-07-08 11:17 | Outpatient (AMB) | payer OTHER, SELFPAY ==
--- NOTE | 2025-07-08 11:19 | MHC.OFFVIS ---
Vital Signs 07/08/25 11:20 Height 5 ft 6 in Weight 222 lb BMI 35.8 BP 140/92 H Blood Pressure Location Rt brachial Position Sitting Pulse 84 Pulse Source Pulse Oximeter Pulse Oximetry (%) 96 Oxygen Delivery Method Room Air Intake Visit Reasons: Cough Allergies No Known Allergies Allergy (Verified 07/08/25 11:22) HPI HPI Cough: Details: Debra is a pleasant 44 year old female, current 10 pack year smoker, with underlying asthma and HTN. She continues with suboptimal effect using symbicort 160 mcg and albuterol MDI 3-4 times per day. Since the fall patient has been on multiple antibiotics with minimal relief. She has been using Symbicort and Spiriva with suboptimal effect, requiring albuterol MDI frequently. At the last visit, in January she was treated with prednisone for an exacerbation with near resolution of respiratory symptoms and however did not come back to office for a close follow up. She experiences shortness of breath with minimal activity and reports significant wheezing, especially at night. Denies chest congestion, fevers or chills. Her asthma symptoms are likely eosinophilic driven given prior testing. The patient reports a persistent cough producing milky sputum, which worsens in the morning. The patient also suffers from gastroesophageal reflux disease (GERD), experiencing symptoms such as acid reflux, vomiting, and difficulty swallowing. Dietary triggers include acidic foods, and she has been advised to avoid these to manage her symptoms. The patient has a history of tobacco use, smoking less than half a pack per day. She has attempted to quit using nicotine patches and gum, but finds it challenging due to the habitual nature of smoking. [facility] Medical History Abnormal menstrual periods Obesity (BMI 30.0-34.9) HTN (hypertension) Asthma Bronchitis Surgical History History of section History of hernia repair Family History Father No problems noted. Mother Asthma Brother No problems noted. Brother No problems noted. Sister No problems noted. Sister Breast cancer Daughter No problems noted. Social History Housing: Condominium Alcohol intake: never Patient Tobacco Use Status: Current everyday Tobacco user Cigarettes Per Day: 8 Years Smoked: 6 e-Cigarette/Vaping Use: Never Used service: No Current occupational status: employed Current occupational exposures/hazards: No Cognitive needs: No Hearing needs: No Vision needs: No Female Reproductive History Menstrual Age of Menarche: 15 Review of Systems Const Denies chills, Denies excessive sweating, Denies fever(s), Denies headache(s) and Denies night sweats Eyes Denies dry eyes, Denies irritation and Denies itchy eyes ENT Reports Normal hearing present and Denies headache(s) Card Denies chest pain, Denies chest pain at rest, Denies chest pain with activity, Denies claudication, Denies leg edema, Reports dyspnea on exertion, Denies orthopnea and Denies paroxysmal nocturnal dyspnea Resp Reports chest congestion, Reports cough, Denies hemoptysis, Denies excessive phlegm production, Denies pain on inspiration, Denies pain with cough, Reports dyspnea on exertion, Denies stridor and Reports wheezing Musc Denies myalgias Neuro Reports Normal hearing present and Denies headache(s) Endo Denies excessive sweating Hollis/Lymph Denies lymphadenopathy Aller/Immun Denies itchy eyes, Denies seasonal rhinorrhea and Reports wheezing Physical Exam Vital Signs: Last Vital Signs Pulse 84 07/08/25 11:20 BP 140/92 H 07/08/25 11:20 Pulse Ox 96 07/08/25 11:20 Oxygen Delivery Method Room Air 07/08/25 11:20 BMI result Body Mass Index 35.8 Const General: cooperative, healthy appearing, no acute distress, well developed and alert Orientation/consciousness: patient oriented x3 Limitations: no limitations HEENT Head: Yes normal to inspection, Yes normocephalic and Yes atraumatic Ears: hearing grossly normal bilaterally and external ears normal Eyes General: appearance normal, both eyes and all related structures Eyelids: Yes eyelids normal Sclerae: sclerae normal EOM: EOMs intact bilaterally Neck Neck: Yes normal visual inspection and Yes no lymphadenopathy Lymphatic: no lymphadenopathy noted Chest Chest palpation & inspection: normal inspection of the chest Resp Effort & Inspection: normal respiratory effort, able to speak in complete sentences, no audible wheezes, Actively coughing Quality: wet, no stridor, not tachypneic, no tripod positioning and no use of accessory muscles Auscultation: no crackles, rhonchi throughout and wheezes expiratory wheezes and throughout Cardio Jugular venous distension: no JVD Rate: regular rate Rhythm: regular rhythm Skin Other: warm, dry General skin exam: no rashes or lesions noted Neuro General: patient oriented x3 Cranial nerves: Yes Normal hearing present Cognition (Neuro): normal cognition Gait exam (Neuro): Normal gait present Extrem General: Yes normal to inspection, Yes capillary refill normal, Yes no clubbing, cyanosis or edema and Yes no pedal edema Psych Appearance: grossly normal and well kempt Speech and movement: Normal speech and movement present and Clear speech present Affect: normal affect Attitude: cooperative Thought process: Normal thought process present Thought content: Normal thought content present Insight: Good insight present (Psych) Judgement: Good judgement present (Psych) Results Reviewed Results Reviewed: [address] [address] [address] Scan Report Signed Patient: Debra Wynn MR#: [id number] : 1980 Acct:[id number] Age/Sex: 44 / F ADM Date: 06/27/25 Loc: HO.CT Attending Dr: Ivis White NP Ordering Physician: Ivis White NP Date of Service: 06/27/25 Procedure(s): CT chest wo IV con Accession Number(s): [id number] cc: Ashu Whitt MD; Ivis White NP~ Report Number: [id number]: Total DLP = 225.00 mGy-cm CLINICAL HISTORY: R05.9 - Cough, unspecified CT CHEST WITHOUT CONTRAST Comparison: None provided Findings: The heart size is normal. Normal caliber thoracic aorta. There is a borderline enlarged right precarinal lymph node that measures 1.7 x 1.1 cm. There is a borderline enlarged pericarinal lymph node that measures 1.8 x 1.0 cm. The thyroid gland appears unremarkable. Nonspecific mild gaseous distention of the esophagus. Small hiatal hernia. The trachea and major bronchi are patent. No consolidation, pleural effusion or pneumothorax. No pulmonary mass or suspicious pulmonary nodule. There is platelike atelectasis in the left upper lobe. The upper abdomen is unremarkable. The bones are intact. IMPRESSION: 1. No evidence for pneumonia or pulmonary mass. 2. Nonspecific mediastinal adenopathy. This document has been electronically signed by: Kasey Richardson DO on 06/27/2025 18:39:48 Dictated By: Kasey Richardson MD Signed By: <Electronically signed by Kasey Richardson MD in OV> 06/27/25 1840 DD/ 38 TD/TT: 06/27/251838 Energy Director: Assessment & Plan Assessment & Plan (1) Asthma: Code(s): J45.909 - Unspecified asthma, uncomplicated Category: Medical (2) Smoker: Code(s): F17.200 - Nicotine dependence, unspecified, uncomplicated Category: Social Hx (3) Cough: Code(s): R05.9 - Cough, unspecified Category: Medical (4) Eosinophilia: Code(s): D72.10 - Eosinophilia, unspecified Category: Medical (5) Mediastinal lymphadenopathy: Code(s): R59.0 - Localized enlarged lymph nodes Category: Medical (6) Dysphagia: Code(s): R13.10 - Dysphagia, unspecified Category: Medical Plan Debra presents with current exacerbation previously responded well to prednisone, will send in prescription. Will trial Trelegy in place of Symbicort and Spiriva. She is aware to call if symptoms do not improve. May need to consider Singulair vs biologic therapy. A repeat CT scan with contrast will be scheduled to monitor the enlarged lymph nodes in the chest in 6 months. For her gastroesophageal reflux disease (GERD), dietary modifications have been recommended, including avoiding acidic foods and elevating the head during sleep. A referral to a sweep press operator will be made for further evaluation of her GERD and associated symptoms. A swallowing study will be ordered to assess for any esophageal abnormalities contributing to her symptoms of dysphagia. The patient is advised to attempt smoking cessation using nicotine patches or gum, with consideration of alternative methods such as hypnosis if needed. Follow-up is recommended in four to six weeks to reassess her symptoms and response to treatment. All questions were answered and patient is in agreement of plan. Orders: Orders CT chest w IV con 6 Months R59.0 - Localized enlarged lymph nodes [place] Modified Barium Swallow Today R13.10 - Dysphagia, unspecified Medications: New nicotine 1 patch transdermal Q24H 14 ea 0RF lxlifopufqs-alzbmcsma-nzbggapr 200-62.5-25 mcg (Trelegy Ellipta) 1 inh inhalation DAILY 60 ea 3RF prednisone see taper instructions; 40 mg Daily x3 days, 30 mg daily x3 days, 20 mg daily x3 days, 10 mg daily x3 days 10 mg PO DIRECTED 30 tabs 0RF Coding Level of Care Code Est Pt Level 4 (73854) Complex EM visit Add On G2211 Diagnoses Asthma J45.909 Smoker F17.200 Cough R05.9 Eosinophilia D72.10 Mediastinal lymphadenopathy R59.0 Dysphagia R13.10
[2025-07-08 11:20] VITALS: BP 140/92; PULSE 84; O2SAT 96; BMI 35.8
== END 2025-07-08 12:20 | disposition home or self-care (01) ==
LOC: HO.HPSW 11:18
PROVIDERS: PCP Family Medicine; Visit Provider Nurse Practitioner Family
DX: J45.909 Unspecified asthma, uncomplicated (principal); F17.200 Nicotine dependence, unspecified, uncomplicated; R05.9 Cough, unspecified; D72.10 Eosinophilia, unspecified; R59.0 Localized enlarged lymph nodes; R13.10 Dysphagia, unspecified
CPT/HCPCS: 99214

== ENCOUNTER → 2025-07-08 11:17 | Outpatient (BNVA) | payer OTHER, SELFPAY | PROVIDERS: PCP Family Medicine; Visit Provider Nurse Practitioner Family | DX: J45.909 Unspecified asthma, uncomplicated (principal); R05.9 Cough, unspecified; I10 Essential (primary) hypertension; F17.210 Nicotine dependence, cigarettes, uncomplicated; K21.9 Gastro-esophageal reflux disease without esophagitis; D72.10 Eosinophilia, unspecified; R59.0 Localized enlarged lymph nodes; R13.10 Dysphagia, unspecified | CPT/HCPCS: 99212 ==

== ENCOUNTER 2025-08-01 13:09 | Outpatient (AMB) | payer OTHER, SELFPAY ==
--- NOTE | 2025-08-01 13:12 | AM.OFFWIN_ITS ---
Intake Vital Signs 08/01/25 13:13 Height 5 ft 6 in Weight 218 lb BMI 35.2 BP 130/88 Blood Pressure Location Lt brachial Position Sitting Pulse 73 Pulse Source Pulse Oximeter Temp 98.2 F Temp Source Oral Pulse Oximetry (%) 98 Oxygen Delivery Method Room Air Intake Visit Reasons: EP- body poison zewmack Intake Note: pt presents with ?poisin sumac? rash to arms and legs Patient Tobacco Use Status: Current everyday Tobacco user Allergies No Known Allergies Allergy (Verified 08/01/25 13:20) Do you need a note to return to daycare/school/sports/work: No HPI HPI Comments History of Present Illness Details History - The patient is a 44-year-old female pr esenting with itchy rash, thinks its poison sumac, has similar rash - The dermatitis began two weeks ago aft er visiting [place]. - The patient reports pinpoint itchy bum ps on the left arm, spreading to the right arm and scalp. - The right leg is also affected, but th ere are no visible lesions on the chest or back. - The patient has a history of asthma an d is familiar with prednisone tapering. Physical Exam General: Cooperative, healthy appearing, comfortable, no acute distress and well developed Orientation: Patient oriented x3 Limitations: No limitations Head: Normal to inspection Ears: Hearing grossly normal bilaterally Nose: Normal External nose present Face and sinus: Normal facial exam Eyes: Appearance normal, both eyes and all related structures Neck: Normal visual inspection and Yes full ROM Respiratory: Normal respiratory effort and able to speak in complete sentences. Skin: pinpoint raised erythematous lesions on left arm, right arm, scalp, and right leg Neuro: Patient oriented x3 [facility] Medical History Abnormal menstrual periods Obesity (BMI 30.0-34.9) HTN (hypertension) Asthma Bronchitis Surgical History History of section History of hernia repair Family History Father No problems noted. Mother Asthma Brother No problems noted. Brother No problems noted. Sister No problems noted. Sister Breast cancer Daughter No problems noted. Social History (Reviewed 07/08/25 @ 11:22 by Gregoria Mathew [facility] Housing: Condominium Alcohol intake: never Patient Tobacco Use Status: Current everyday Tobacco user Cigarettes Per Day: 8 Years Smoked: 6 e-Cigarette/Vaping Use: Never Used service: No Current occupational status: employed Current occupational exposures/hazards: No Cognitive needs: No Hearing needs: No Vision needs: No Female Reproductive History Menstrual Age of Menarche: 15 Review of Systems Const All systems reviewed & are unremarkable except as noted in HPI and below Physical Exam Vital Signs: Last Vital Signs Temp 98.2 F 08/01/25 13:13 Pulse 73 08/01/25 13:13 BP 130/88 08/01/25 13:13 Pulse Ox 98 08/01/25 13:13 Oxygen Delivery Method Room Air 08/01/25 13:13 BMI result Body Mass Index 35.2 Assessment & Plan Assessment & Plan (1) Contact dermatitis: Code(s): L25.9 - Unspecified contact dermatitis, unspecified cause Qualifiers: Contact dermatitis type: allergic Contact dermatitis trigger: non-food plants Qualified Code(s): L23.7 - Allergic contact dermatitis due to plants, except food Plan: Patient was informed and verbally consented to the use of an ambient scribe for clinic note documentation during this visit. - Likely poison sumac - Prescribed prednisone taper to manage symptoms, same taper as her to track easier. - Advised to follow a tapering schedule to avoid complications. - Can use [employer] for washing. - Follow up with PCP if no improvement in symptoms. Medications: New prednisone see taper instructions; 40 mg Daily x3 days, 30 mg daily x3 days, 20 mg daily x3 days, 10 mg daily x3 days 10 mg PO DIRECTED 30 tabs 0RF Coding Level of Care Code Est Pt Level 3 (48732) Diagnoses Allergic contact dermatitis due to plants, except food L23.7 Contact dermatitis type: allergic Contact dermatitis trigger: non-food plants
[2025-08-01 13:13] VITALS: BP 130/88; PULSE 73; TEMP 36.8; O2SAT 98; BMI 35.2
== END 2025-08-01 13:35 | disposition home or self-care (01) ==
PROVIDERS: PCP Family Medicine; Visit Provider Physician Assistant
DX: L23.7 Allergic contact dermatitis due to plants, except food (principal)

== ENCOUNTER → 2025-08-01 13:09 | Outpatient (BNVA) | payer OTHER, SELFPAY | PROVIDERS: PCP Family Medicine; Visit Provider Physician Assistant | DX: L23.7 Allergic contact dermatitis due to plants, except food (principal) | CPT/HCPCS: 99212 ==

== ENCOUNTER 2025-08-04 11:05 | Outpatient (AMB) | payer OTHER, SELFPAY ==
[2025-08-04 11:11] VITALS: BP 142/86; PULSE 88; O2SAT 96; BMI 36.6
--- NOTE | 2025-08-04 11:11 | A.OFFVIS_ITS ---
Vital Signs 08/04/25 11:11 Height 5 ft 6 in Weight 227 lb BMI 36.6 BP 142/86 H Pulse 88 Pulse Oximetry (%) 96 Intake Visit Reasons: MAT Allergies No Known Allergies Allergy (Verified 08/04/25 11:13) HPI Comments Details: A 44-year-old female presents for a follow-up visit r/t CASSIUS in sustained remission with use of buprenorphine-naloxone 8/2 mg daily. Denies use of opiates, alcohol, and other substances does report daily smoking of cigarettes and cannabis. Engages in conversation regarding working 2 jobs and looking to connect to a mental health services. COUNTS INCLUDE 234 BEDS AT THE [facility] Medical History Abnormal menstrual periods Obesity (BMI 30.0-34.9) HTN (hypertension) Asthma Bronchitis Surgical History History of section History of hernia repair Family History Father No problems noted. Mother Asthma Brother No problems noted. Brother No problems noted. Sister No problems noted. Sister Breast cancer Daughter No problems noted. Social History Housing: Condominium Alcohol intake: never Patient Tobacco Use Status: Current everyday Tobacco user Cigarettes Per Day: 8 Years Smoked: 6 e-Cigarette/Vaping Use: Never Used service: No Current occupational status: employed Current occupational exposures/hazards: No Cognitive needs: No Hearing needs: No Vision needs: No Female Reproductive History Menstrual Age of Menarche: 15 Review of Systems Const All systems reviewed & are unremarkable except as noted in HPI and below Physical Exam Vital Signs: Last Vital Signs Pulse 88 08/04/25 11:11 BP 142/86 H 08/04/25 11:11 Pulse Ox 96 08/04/25 11:11 BMI result Body Mass Index 36.6 Const General: cooperative Assessment & Plan Assessment & Plan (1) Opioid use disorder in remission: Comment: She is doing well Code(s): F11.91 - Opioid use, unspecified, in remission Category: Medical Plan The plan of care is to continue with buprenorphine-naloxone 8/2 mg daily and follow up in 3 months or sooner if needed. Education provided re: risk reduction activities to reduce smoking cigarettes and cannabis. Information and phone number given for [facility] to call to initiate mental health services. Medications: Refilled buprenorphine-naloxone 8-2 mg (Suboxone) 1 film buccal DAILY 30 ea 1RF 30 days Patient Instructions: - Continue with buprenorphine-naloxone as prescribed. - Reduce frequency of cigarette and cannabis smoking. - Call [facility] to set an appointment for mental health services. - Call with questions, concerns, or to report side effects/new onset of symptoms to [facility]. - The patient verbalized understanding and agreed with plan of care. Coding Level of Care Code Est Pt Level 3 (20471) Diagnoses Opioid use disorder in remission F11.91
== END 2025-08-04 11:36 | disposition home or self-care (01) ==
LOC: HO.HCC 11:05
PROVIDERS: PCP Family Medicine; Visit Provider Clinical Nurse Specialist Psychiatric/Mental Health
DX: F11.91 Opioid use, unspecified, in remission (principal)
CPT/HCPCS: 99213

== ENCOUNTER → 2025-08-04 11:05 | Outpatient (BNVA) | payer OTHER, SELFPAY | PROVIDERS: PCP Family Medicine; Visit Provider Clinical Nurse Specialist Psychiatric/Mental Health | DX: F11.91 Opioid use, unspecified, in remission (principal); F17.210 Nicotine dependence, cigarettes, uncomplicated; Z71.6 Tobacco abuse counseling; Z79.899 Other long term (current) drug therapy | CPT/HCPCS: 99212 ==

== ENCOUNTER 2025-08-20 12:09 | Outpatient (AMB) | payer OTHER, SELFPAY ==
--- NOTE | 2025-08-20 12:26 | MHC.PC.OV ---
Vital Signs 08/20/25 12:31 Height 5 ft 6 in Weight 220 lb 8 oz BMI 35.6 BP 128/70 Blood Pressure Location Lt brachial Position Sitting Respiration 16 Pulse 81 Pulse Source Pulse Oximeter Temp 98.1 F Temp Source Oral Pulse Oximetry (%) 100 Oxygen Delivery Method Room Air Intake Visit Reasons: f/u anemia, HLD /medication Intake Note: patient here for follow up on anemia, HLD and medication Senior Developer Required: No Is last menstrual period known: No Post menopausal: No Patient : No Allergies No Known Allergies Allergy (Verified 08/20/25 12:28) Medication List - Last Reconciled 08/20/25 by Ashu Whitt MD albuterol sulfate 90 mcg/actuation (Ventolin HFA) 2 puffs inhalation Q4-6H PRN 30 days atomoxetine 40 mg PO BID 90 days budesonide-formoterol 160-4.5 mcg/actuation (Symbicort) 1 puff inhalation BID 30 days buprenorphine-naloxone 8-2 mg (Suboxone) 1 film buccal DAILY 30 days cetirizine 10 mg PO DAILY PRN ferrous sulfate 325 mg PO DAILY 90 days ipratropium-albuterol 0.5 mg-3 mg(2.5 mg base)/3 mL 3 mL inhalation Q6H PRN lisinopril 10 mg PO DAILY metoprolol succinate ER 25 mg PO DAILY nicotine 1 patch transdermal Q24H pantoprazole 40 mg PO DAILY pregabalin 300 mg PO BID 90 days sertraline 100 mg PO DAILY 90 days tiotropium bromide 2.5 mcg/actuation (Spiriva Respimat) 2 puffs inhalation DAILY Tobacco use date assessed: 08/20/25 Dental Screening Dental Screen Date: 08/20/25 Did you have a dental visit in the last 12 months?: Yes Did you have a dental problem in the last 6 months where you did not have access to dental care?: No Was dental information given to patient?: Patient has dentist HPI f/u anemia, HLD /medication HPI Details 45 y/o female presents to f/u anemia, HLD. No recent labs to review. BP today 128/70, 81p. She is on lisinopril 10mg, metoprolol 25mg daily. Ongoing complaints of obesity. She has questions about weight loss meds. Notes symptoms of sleep apnea. PFSH Medical History Abnormal menstrual periods Obesity (BMI 30.0-34.9) HTN (hypertension) Asthma Bronchitis Surgical History History of section History of hernia repair Family History Father No problems noted. Mother Asthma Brother No problems noted. Brother No problems noted. Sister No problems noted. Sister Breast cancer Daughter No problems noted. Social History Housing: Condominium Alcohol intake: never Patient Tobacco Use Status: Current everyday Tobacco user Cigarettes Per Day: 8 Years Smoked: 6 e-Cigarette/Vaping Use: Never Used Second Hand Smoke Exposure: Yes service: No Current occupational status: employed Current occupational exposures/hazards: No Cognitive needs: No Hearing needs: No Vision needs: No Female Reproductive History Menstrual Age of Menarche: 15 Questionnaire PHQ-9 Over the last 2 weeks, how often have you been bothered by any of the following problems? 1. Little interest or pleasure in doing things: several days 2. Feeling down, depressed, or hopeless: not at all 3. Trouble falling or staying asleep, or sleeping too much: nearly every day 4. Feeling tired or having little energy: nearly every day 5. Poor appetite or overeating: more than half the days 6. Feeling bad about yourself - or that you are a failure or have let yourself or your family down: not at all 7. Trouble concentrating on things, such as reading the newspaper or watching television: several days 8. Moving or speaking so slowly that other people could have noticed. Or the opposite - being so fidgety or restless that you have been moving around a lot more than usual: nearly every day 9. Thoughts that you would be better off or of hurting yourself in some way: not at all Total score: 13 Depression Screening Interpretation: Positive Depression Screening Done: Yes 88454 - PHQ-9 Billing: Yes Source: Developed by Drs. Rod Mayer, Alona Carmen, Mushtaq Pino and colleagues, with an educational jose from [employer]. Thrive Questionnaire Date Thrive assessed: 08/20/25 I am a: Patient What is your living situation today?: I have a steady place to live Within the past 12 months, did the food you bought not last and you didn't have the money to get more?: Never true Within the past 12 months, did you worry whether your food would run out before you got money to buy more?: Never true Do you have trouble paying for medicines?: No Do you have trouble getting transportation to medical appointments?: No Do you have trouble paying your heating and electricity bill?: No Do you have trouble taking care of your child, family member or friend?: No Do you have trouble with day-to-day activities such as bathing, preparing meals, shopping, managing finances, etc.?: No Are you currently unemployed and looking for a job?: No Are you interested in more education?: No Please select the resources that you would like help with: None Currently or been in a relationship where the following occur: No concerns reported THRIVE Score: 0 AUDIT C Alcohol Use Questionnaire (AUDIT-C) 1. How often do you have a drink containing alcohol?: Never 3. How often do you have six or more drinks on one occasion?: Never Total Score: 0 Score Reviewed/Action Taken: Yes RONNIE-7 AMB Questionnaire RONNIE-7 Date RONNIE - 7 assessed: 01/27/25 Feeling nervous, anxious, or on edge: 2 = More than half the days Not being able to stop or control worryin = Several days Worrying too much about different things: 1 = Several days Trouble relaxin = More than half the days Being so restless that it is hard to sit still: 3 = Nearly every day Becoming easily annoyed or irritable: 3 = Nearly every day Feeling afraid as if something awful might happen: 0 = Not at all Total RONNIE-7 score (0-4 normal; 5-9 mild; 10-14 moderate; 15-21 severe): 12 Source: Developed by Drs. Rod Mayer, Alona Carmen, Mushtaq Pino and colleagues, with an educational jose from [employer] RONNIE-7 Assessment Billing RONNIE-7 Assessment Tool: RONNIE-7 Assessment 50071 ACT Questionnaire In the past 4 weeks, how much of the time did your asthma keep you from getting as much done at work, school or at home?: All of the time During the past 4 weeks, how often have you had shortness of breath?: Once a day During the past 4 weeks, how often did your asthma symptoms wake you up at night or earlier than usual in the morning?: Once a week During the past 4 weeks, how often have you had to use your rescue inhaler or nebulizer medication?: Not at all How would you rate your asthma control during the past 4 weeks?: Somewhat controlled Score: 14 Review of Systems Const Denies chills, Denies fatigue, Denies fever(s), Denies headache(s) and Denies weakness ENT Denies dizziness and Denies headache(s) Card Denies dyspnea Resp Denies cough, Denies dyspnea, Denies wheezing and Denies other (shortness of breath) Musc Denies numbness and Denies tingling Neuro Denies dizziness, Denies headache(s), Denies numbness, Denies tingling and Denies weakness Psych Denies anxiety and Denies depression Endo Denies fatigue Aller/Immun Denies wheezing Physical exam (Primary Care) Vital Signs: Last Vital Signs Temp 98.1 F 08/20/25 12:31 Pulse 81 08/20/25 12:31 Resp 16 08/20/25 12:31 BP 128/70 08/20/25 12:31 Pulse Ox 100 08/20/25 12:31 Oxygen Delivery Method Room Air 08/20/25 12:31 BMI result Body Mass Index 35.6 Tobacco/Smoking Status: Tobacco use Status Tobacco use date assessed 08/20/25 08/20/25 12:36 Patient Tobacco Use Status Current everyday Tobacco 08/20/25 12:36 Tobacco use type 08/01/25 15:45 e-Cigarette/Vaping Use Never Used 08/20/25 12:36 PHQ-9: PHQ-9 Score PHQ-9: Total score 13 08/20/25 12:45 Depression Screening Interpretation: Positive Thrive Assessment: Date of Thrive Assessment Date Thrive assessed 08/20/25 08/20/25 12:45 Currently or been in a relationship where the following occur: No concerns reported Const General: well developed; No acute distress Nutritional Appearance: well nourished and obese Orientation/consciousness: patient oriented x3 HENMT Head: Yes normocephalic and Yes atraumatic Eyes General: appearance normal, both eyes and all related structures Pupils: Equal, round and reactive pupils present EOM: EOMs intact bilaterally Resp Effort & Inspection: normal respiratory effort Neuro General: patient oriented x3 and gait normal Cranial nerves: Yes Equal, round and reactive pupils present Psych Affect: normal affect Coding Level of Care Code Est Pt Level 4 (65457) Diagnoses Primary hypertension I10 Hypertension type: primary hypertension Obesity (BMI 30-39.9) E66.9 Hypersomnia G47.10 Additional Codes RONNIE-7 Assessment Billing - RONNIE-7 Assessment Tool: RONNIE-7 Assessment 19148 ([id number]) PHQ-9 - 28766 - PHQ-9 Billing: Yes ([id number]) Assessment & Plan Assessment & Plan (1) HTN (hypertension): Code(s): I10 - Essential (primary) hypertension Category: Medical Qualifiers: Hypertension type: primary hypertension Qualified Code(s): I10 - Essential (primary) hypertension Plan: Blood pressure is controlled. Goal is less than 140/90 Continue current medications (2) Obesity (BMI 30-39.9): Code(s): E66.9 - Obesity, unspecified Category: Medical Plan: Patient with class 2 obesity with BMI greater than 35 She would like to try a GLP 1 medication. We discussed risks/benefits Will send script for Zepbound. Patient may also have sleep apnea and I am referring her to Sleep Medicine to follow-up on this-see below (3) Hypersomnia: Code(s): G47.10 - Hypersomnia, unspecified Category: Medical Plan: Patient snores and has episodes of gasping and holding breath in sleep. She wakes up feeling unrested. She notes daytime sleepiness Referred to Sleep Medicine Orders: Orders Lipid Panel Today E78.5 - Hyperlipidemia, unspecified, Z00.00 - Encounter for general adult medical examination without abnormal findings Comprehensive [place]. Panel Fast Today E78.5 - Hyperlipidemia, unspecified, Z00.00 - Encounter for general adult medical examination without abnormal findings Complete Blood Count Auto Diff Today D64.9 - Anemia, unspecified, Z00.00 - Encounter for general adult medical examination without abnormal findings TSH reflex Free T4 Today Z00.00 - Encounter for general adult medical examination without abnormal findings UA CC w/rflx Micro + Cult Today Z00.00 - Encounter for general adult medical examination without abnormal findings Microalbumin, Random (w Creat) Today I10 - Essential (primary) hypertension Referrals Sleep Medicine Referral G47.10 - Hypersomnia, unspecified Medications: New tirzepatide (weight loss) (Zepbound) for 4 weeks 2.5 mg (0.5 mL) subcut QWEEK 2 mL 3RF 28 days E66.812 - Obesity, class 2
[2025-08-20 12:31] VITALS: BP 128/70; PULSE 81; RESP 16; TEMP 36.7; O2SAT 100; BMI 35.6
== END 2025-08-20 13:32 | disposition home or self-care (01) ==
LOC: HO.HMCFM 12:09
PROVIDERS: PCP Family Medicine; Visit Provider Family Medicine
DX: I10 Essential (primary) hypertension (principal); E66.9 Obesity, unspecified; G47.10 Hypersomnia, unspecified; Z68.35 Body mass index [BMI] 35.0-35.9, adult

== ENCOUNTER → 2025-08-20 12:09 | Outpatient (BNVA) | payer OTHER, SELFPAY | PROVIDERS: PCP Family Medicine; Visit Provider Family Medicine | DX: I10 Essential (primary) hypertension (principal); E66.9 Obesity, unspecified; Z68.35 Body mass index [BMI] 35.0-35.9, adult; G47.10 Hypersomnia, unspecified; J45.909 Unspecified asthma, uncomplicated; Z79.899 Other long term (current) drug therapy; Z13.31 Encounter for screening for depression | CPT/HCPCS: 96127; 96160; 99212 ==

== ENCOUNTER 2025-09-26 14:00 | Outpatient (AMB) | payer OTHER, SELFPAY ==
[2025-09-26 14:03] VITALS: BP 126/88; PULSE 100; O2SAT 97; BMI 35.5
--- NOTE | 2025-09-26 14:03 | MHC.OFFVIS ---
Vital Signs 09/26/25 14:03 Height 5 ft 6 in Weight 220 lb 4 oz BMI 35.5 BP 126/88 Blood Pressure Location Rt brachial Position Sitting Pulse 100 Pulse Source Pulse Oximeter Pulse Oximetry (%) 97 Oxygen Delivery Method Room Air Intake Visit Reasons: INP-Hypersomnia Intake Note: Patient presents [employer] Hypersomnia. Patient snores and has episodes of gasping and holding breath in sleep. She wakes up feeling unrested. She notes daytime sleepiness. Goes to bed at 10pm and wakes up at 11am. Wakes up 3times a night. Morning headaches. Some times the last all day(takes tylonol or ipbrophen. No history of sleep studies. Accompanied by: Spouse Allergies No Known Allergies Allergy (Verified 09/26/25 14:08) HPI Comments Details: 45 year old female with sleep difficulties is referred for an evaluation of SUZY. 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 She goes to bed at 9pm and wakes up at 5:45am to get her daughter/ son to school and goes back to bed until 11am. She has 3 bathroom breaks a night, snores loudly, gasps for air then stops breathing per her partner. She has morning headaches, and takes tylenolol, along with ibuprofen as needed. She has bruxism, and clenches her jaws. She started to hav auditory hallucinations and screams at night, denies parasomnias was dx with bipolar disorder therapist. She has ADHD and the stimulants like (Adderall) make her act out unorthodox behaviors, she once walked from 8pm to 6am starting in [place] to [place] near the [facility]. She was afraid wolves would attack her and later that same night was picked up by police. She has SOB, uses 3 inhalers to have adequate dosing of medication, she is on symbicort, ventolin, and ipratropium-albuterol. She has RLS symptoms, moves bilateral lower extremities constantly at night. She has neuropathy, takes 300mg lyrica BID which helps to alleviate the irritable sensation. 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 Her brother in Oct 2024, he fell asleep in his car and froze to . Her memory is poor, forgets conversations and loses focus easily distracted. She gets confused with dates, word recall and orientation can be challenging will lose day count, forgets appts. She smokes 7-8 cigarettes, and MJ daily. Denies alcohol use. [facility] Medical History Abnormal menstrual periods Obesity (BMI 30.0-34.9) HTN (hypertension) Asthma Bronchitis Surgical History History of section History of hernia repair Family History Father No problems noted. Mother Asthma Brother No problems noted. Brother No problems noted. Sister No problems noted. Sister Breast cancer Daughter No problems noted. Social History Housing: Condominium Alcohol intake: never Patient Tobacco Use Status: Current everyday Tobacco user Cigarettes Per Day: 8 Years Smoked: 6 e-Cigarette/Vaping Use: Never Used Second Hand Smoke Exposure: Yes service: No Current occupational status: employed Current occupational exposures/hazards: No Cognitive needs: No Hearing needs: No Vision needs: No Female Reproductive History Menstrual Age of Menarche: 15 Physical Exam Vital Signs: Last Vital Signs Pulse 100 09/26/25 14:03 BP 126/88 09/26/25 14:03 Pulse Ox 97 09/26/25 14:03 Oxygen Delivery Method Room Air 09/26/25 14:03 BMI result Body Mass Index 35.5 Const General: cooperative, comfortable and no acute distress Nutritional Appearance: obese Orientation/consciousness: patient oriented x3 HEENT Face and sinus: Yes face symmetric Teeth and gingiva: other (mallampti score is 4) Eyes Pupils: Equal, round and reactive pupils present Resp Effort & Inspection: normal respiratory effort and able to speak in complete sentences Neuro General: patient oriented x3 and moves all extremities Cranial nerves: Yes Equal, round and reactive pupils present, Yes Normal accommodation reflex present, Yes Normal facial strength present, Yes Midline tongue present, Yes Ability to bilaterally rotate head present and Yes Ability to bilaterally elevate shoulders present Gait exam (Neuro): Normal gait present Motor exam (neuro): 5/5 motor strength present throughout and Normal motor muscle tone present throughout Psych Appearance: well kempt Affect: Anxious affect present Attitude: cooperative Results Reviewed Results Reviewed: Findings: Chest CTscan 06/27/2025 The heart size is normal. Normal caliber thoracic aorta. There is a borderline enlarged right precarinal lymph node that measures 1.7 x 1.1 cm. There is a borderline enlarged pericarinal lymph node that measures 1.8 x 1.0 cm. The thyroid gland appears unremarkable. Nonspecific mild gaseous distention of the esophagus. Small hiatal hernia. The trachea and major bronchi are patent. No consolidation, pleural effusion or pneumothorax. No pulmonary mass or suspicious pulmonary nodule. There is platelike atelectasis in the left upper lobe. The upper abdomen is unremarkable. The bones are intact. IMPRESSION: 1. No evidence for pneumonia or pulmonary mass. 2. Nonspecific mediastinal adenopathy. Assessment & Plan Assessment & Plan (1) Excessive daytime sleepiness: Code(s): G47.19 - Other hypersomnia Category: Medical (2) Loud snoring: Code(s): R06.83 - Snoring Category: Medical (3) Psychosis: Code(s): F29 - Unspecified psychosis not due to a substance or known physiological condition Category: Medical Qualifiers: Psychosis type: brief psychotic disorder Qualified Code(s): F23 - Brief psychotic disorder (4) Allergies: Code(s): T78.40XA - Allergy, unspecified, initial encounter Category: Medical Qualifiers: Encounter type: sequela Qualified Code(s): T78.40XS - Allergy, unspecified, sequela (5) Environmental allergies: Code(s): Z91.09 - Other allergy status, other than to drugs and biological substances Category: Medical (6) Anxiety and depression: Code(s): F41.9 - Anxiety disorder, unspecified; F32.9 - Major depressive disorder, single episode, unspecified Category: Medical (7) Opioid use disorder in remission: Comment: She is doing well Code(s): F11.91 - Opioid use, unspecified, in remission Category: Medical (8) Hypersomnia: Code(s): G47.10 - Hypersomnia, unspecified Category: Medical Plan Excessive daytime sleepiness HST r/o suzy Allergies environmental dog dander, mouse urine, environmental, cetirizine 10mg po daily or prn, plus 3 inhalers may see biomedical specialist in [facility]. Anxiety and depression [facility] and continue therapy as needed for grief./ depression/ psychosis. Substance abuse disorder is in remission one film of suboxone daily - buprenorphine- naloxone 8-2mg po. Labs reviewed with pt start 200mg magnesium for RLS symptoms and Beets for fatigue due to anemia. F/U in 3 months Orders: Orders Methylmalonic Acid Today G47.10 - Hypersomnia, unspecified, G47.19 - Other hypersomnia, G47.9 - Sleep disorder, unspecified, R06.83 - Snoring, R53.82 - Chronic fatigue, unspecified, R53.83 - Other fatigue Vitamin D 25-OH Total Today G47.10 - Hypersomnia, unspecified, G47.19 - Other hypersomnia, R06.83 - Snoring, R53.82 - Chronic fatigue, unspecified Magnesium Today G47.10 - Hypersomnia, unspecified, G47.19 - Other hypersomnia, R06.83 - Snoring, R53.82 - Chronic fatigue, unspecified RT home sleep study 09/26/25 G47.19 - Other hypersomnia Ferritin Today G47.10 - Hypersomnia, unspecified, G47.19 - Other hypersomnia Vitamin B12 and Folate Today G47.10 - Hypersomnia, unspecified, G47.19 - Other hypersomnia, R06.83 - Snoring, R53.82 - Chronic fatigue, unspecified TSH reflex Free T4 Today G47.10 - Hypersomnia, unspecified, G47.19 - Other hypersomnia, R06.83 - Snoring, R53.82 - Chronic fatigue, unspecified Homocysteine Today G47.10 - Hypersomnia, unspecified, G47.19 - Other hypersomnia, G47.9 - Sleep disorder, unspecified, R06.83 - Snoring, R53.82 - Chronic fatigue, unspecified, R53.83 - Other fatigue Medications: New magnesium oxide may hold for loose stools 400 mg PO DAILY 90 tabs 0RF sleep difficulties 3 months MDD 400mg po daily F32.9 - Major depressive disorder, single episode, unspecified, F41.9 - Anxiety disorder, unspecified, G47.19 - Other hypersomnia Patient Instructions: Sleep Hygiene provided: set a scheduled bedtime and wake time to help regulate the circadian rhythm and balance the release of pituitary hormones. Sleep in a dark room, temperatures below 68 degrees, and no devices n bed. Limit caffeinated products 6 hours prior to bed, and limit fluids 2-4 hours prior to bed. Gentle night yoga, diffusing essential oils, and playing soft music can be relaxing. Coding Level of Care Code New Pt Level 4 (07212) Diagnoses Excessive daytime sleepiness G47.19 Loud snoring R06.83 Brief psychotic disorder F23 Psychosis type: brief psychotic disorder Allergy, sequela T78.40XS Encounter type: sequela Environmental allergies Z91.09 Anxiety and depression F41.9; F32.9 Opioid use disorder in remission F11.91 Hypersomnia G47.10 Sleep Questionnaire Difficulty falling asleep: No Difficulty staying asleep?: Yes Number of arousals: 3-4 Snoring: Yes Witnessed apneas: Yes Gasping arousals: Yes Nocturia: Yes GERD: Yes Vivid dreams: Yes Acting out dreams: Yes Abnormal behavior in sleep: Yes Abnormal movements in sleep: Yes Morning headaches: Yes Excessive daytime sleepiness: Yes Daytime naps: Yes Restless legs: Yes Hallucinations: Yes (Auditory- sees a therapist - [facility])
== END 2025-09-26 14:45 | disposition home or self-care (01) ==
LOC: HO.HSMS 14:01
PROVIDERS: PCP Family Medicine; Visit Provider Physician Assistant Medical
DX: G47.19 Other hypersomnia (principal); R06.83 Snoring; F23 Brief psychotic disorder; T78.40XS Allergy, unspecified, sequela; Z91.09 Other allergy status, other than to drugs and biological substances; F41.9 Anxiety disorder, unspecified; F32.9 Major depressive disorder, single episode, unspecified; F11.91 Opioid use, unspecified, in remission; G47.10 Hypersomnia, unspecified
CPT/HCPCS: 99204

== ENCOUNTER → 2025-09-26 14:00 | Outpatient (BNVA) | payer OTHER, SELFPAY | PROVIDERS: PCP Family Medicine; Visit Provider Physician Assistant Medical | DX: G47.19 Other hypersomnia (principal); R06.83 Snoring; F23 Brief psychotic disorder; F41.9 Anxiety disorder, unspecified; F32.9 Major depressive disorder, single episode, unspecified; F11.91 Opioid use, unspecified, in remission; T78.40XD Allergy, unspecified, subsequent encounter; Z91.09 Other allergy status, other than to drugs and biological substances | CPT/HCPCS: 99202 ==